=== PATIENT | female | born 1940 | race Caucasian/White ===

== ENCOUNTER 2017-02-04 14:50 | Emergency (ER) | payer MEDICARE, MEDICAID ==
[~2017-02-04] VITALS: Ht 160 cm; Wt 88.9 kg
[~2017-02-04 14:50] MED LIST: AMLO5TAB PO; ASPIRIN EC81 MG PO; BALANCED B PO; CENTRUM SILVER1 TAB PO; CLONAZEPAM 1MG T1 MG PO; ETOLDOLAC400 MG PO; GABAPENTIN300 MG PO; HYDROCHLOROTHIA25 M1 PO; HYDROXYZINE 25M25 MG PO; LESCOL XL80 MG PO; LESCOL40 MG PO; LISINOPRIL 20MG20 MG PO; LORTAB 5/500 501 TAB PO; MECLIZINE 25MG25 MG PO; MECLIZINE HYDRO25 MG PO; METOPROLOL50 MG PO; NYSTATIN TO15 GM/BOT TP; PLAVIX75 MG PO; PROTONIX 40MG T40 MG PO; RANITIDINE HCL150 MG PO; RANITIDINE300 MG PO; SERTRALINE 100100 MG PO; TRAZODONE 50MG50 MG PO; VERAPAMIL HCL120 MG PO; VERAPAMIL120 MG PO; VESICARE10 MG PO; VESICARE5 MG PO; ZETIA10 MG PO; ZOCOR40 MG PO; ZOLOFT100 M1 PO
[2017-02-04 15:07] LABS: LYMPH % 31.8 % (10-50.0)
--- NOTE | 2017-02-04 15:14 | Emergency Room Report ---
History of Present Illness Time Seen by [id number] Presenting Problem in Triage Pt arrived:Walked Presenting Problem:PT REPORTS PAIN ACROSS CHEST FOR APPROX 1 WEEK AND R JAW PAIN FOR 2 YEARS. PT REPORTS HAS KNOWN CAROTID ARTERY BLOCKAGE, REPORTS WAS SENT TO ER PER PCP. 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 N Clinical Suspician of Infection? N Mental Status: 1 - Regular (Normal Baseline) Sepsis Risk:Low Sepsis Risk Have you (or family members/close friends) recently traveled outside the [place]? N If Yes, where/when: Have you had exposure to infectious disease within the past month? N TB? Other? Specify: Source patient, RN notes reviewed, family, RN/MD Exam Limitations no limitations ALLERGIES Coded Allergies: No Known Allergies (10/06/15) Home Medications Reported Medications Amlodipine Besylate (Amlodipine) 5 MG PO DAILY Clopidogrel Bisulfate (Plavix) 75 MG PO DAILY VERAPAMIL HCL (Verapamil ER) 120 MG PO DAILY Meclizine Hcl (Meclizine Hydrochloride) 25 MG PO BIDP PRN DIZZINESS Ranitidine Hydrochloride (Ranitidine) 300 MG PO DAILY Simvastatin (Zocor) 40 MG PO QHS SERTRALINE HCL (Zoloft) 100 MG PO DAILY Solifenacin Succinate (Vesicare) 5 MG PO DAILY Pantoprazole Sodium (Protonix 40MG TAB) 40 MG PO DAILY LISINOPRIL (Lisinopril) 20 MG PO DAILY HYDROCHLOROTHIAZIDE (Hydrochlorothiazide) 25 MG PO TIDP PRN anxiety History Medical History General CAD? Yes Angina: No NM: No Hypertension? Yes Hyperlipidemia? Yes CHF? No DVT? No PE? No COPD? No Asthma? No Anemia? No GERD? No Gastric ulcers? No GI Bleed? No Hernia? Yes Thyroid Problems? No Hypothyroidism? No CVA? Yes Seizures? No Diabetes? No Renal Insuffiency? No End Stage Renal Disease? No UTI? Yes Stones? No GB Disease: No Hepatitis? No Sickle Cell Disease? No Arthritis? Yes Migraines? No Cataracts? No Glaucoma? No MRSA? No HIV? No TB? No Anxiety? Yes Depression? No Cancer? No More? No Immunization Hx DT/Tetanus 5-10 Years Ago Flu [id number] Flu Season Pneumonia Received In Past Surgical Hx Previous Surgery?Y Hysterect CARPAL TUNNEL RT X 2 RT BREAST BX BILAT KNEE REPLACEMENTS R ANKLE L ANKLE Family History Family Hx Diabetes Yes CAD Yes Hypertension Yes Hyperlipidemia Yes Cancer Yes TB No Social History Smoking Hx Smoker: Never Smoker Tobacco: No Alcohol Alcohol: No Review of Systems All Other Systems Reviewed and Negative Cardiovascular chest pain Physical Exam Vital Signs Vital Signs Date Time Temp Pulse Resp B/P Pulse O2 O2 Flow FiO2 Ox Delivery Rate 02/04 1842 97.7 71 18 150/74 93 02/04 1638 71 18 150/74 93 02/04 1450 97.7 59 18 144/80 93 General Appearance normal appearance, WD/WN, mild distress Eye Exam - bilateral eye normal exam, bilateral eye PERRL, bilateral eye EOMI Respiratory Status Yes: trachea midline, chest symmetrical, non tender chest. No: respiratory distress. Lung Sounds bilateral: normal breath sounds, lungs clear. Cardiovascular normal exam, regular rate/rhythm, no peripheral edema, no gallop, no JVD, no murmur, no rub, normal peripheral pulses Peripheral Pulses Pulses normal Yes Gastrointestinal normal bowel sounds, normal exam, non tender, soft, no organomegaly Extremities non-tender, normal range of motion, normal inspection Neurologic alert, self pay collector II-XII nml as tested, normal exam, oriented x 3 Mental status normal mood/affect Skin intact, normal color, warm/dry Medical Decision Making LABS/Meds/Orders Pt receiving controlled substance in ED? No Comment Upon re-evaluation patient appears medically stable, clinically improving. Advised patient to follow-up with automotive parts clerk, Dr. Gregory Raygoza, within the next 2-3 days. Results/Orders Laboratory Tests 02/04/17 1740: Creatine Kinase 36, CK-MB (CK-2) Rel Index 5.6 H, CK and CKMB Interp 2.0, Troponin I < 0.02 02/04/17 1458: B-Natriuretic Peptide 101 H 02/04/17 1458: Sodium 138, Potassium 4.0, Chloride 104, Carbon Dioxide 27, BUN 19 H, Creatinine 1.3 H, Estimated Creat Clear 52, Estimated GFR (MDRD) 40 L, Glucose 155 H, Calcium 8.8, Total Bilirubin 0.4, AST 17, ALT 17, Alkaline Phosphatase 88, Creatine Kinase 39, CK-MB (CK-2) Rel Index 5.9 H, CK and CKMB Interp 2.3, Troponin I < 0.02, Total Protein 7.2, Albumin 3.3 L, Globulin 3.9 H, Albumin/ Globulin Ratio 0.8 L, D-Dimer 459 *H, WBC 6.3, RBC 4.32, Hgb 12.4, Hct 35.7 L, MCV 82.6, RDW 13.4, Plt Count 238, MPV 7.0 L, Gran % 60.6, Gran # 3.8, Lymphocytes % 31.8, Monocytes % 4.9, Eosinophils % 2.4, Basophils % 0.3, Lymphocytes # 2.0, Monocytes # 0.3, Eosinophils # 0.2, Basophils # 0.0, PUBS MCHC 34.6, MCH 28.6 Orders Procedure Date/time Status CARDIAC ENZYMES 02/04 1725 Complete D-DIMER 02/04 1511 Complete BRAIN NATRIURETIC PEPTIDE 02/04 1511 Complete ELECTROCARDIOGRAM REQUEST 02/04 1452 Active IV SALINE LOCK 02/04 1452 Active INSURANCE DEFENSE PARALEGAL 02/04 1452 Active CBC WITH AUTO DIFF 02/04 1452 Complete CARDIAC ENZYMES 02/04 1452 Complete CHEM 12 PROFILE 02/04 1452 Complete 12 LEAD EKG-REHAN (INITIAL) 02/04 UNK Active CM/EKG CM/assistant professor of education Rhythm Normal Sinus Rhythm Rate 88 Ectopy No Comments No acute ischemic changes EKG rate, NSR, rhythm, no evid. of ischemic chgs, no ectopy, normal QRS, normal ID, no EKG for comparison, non-spec. ST/Twave chgs, ST elevation, ST depression, LBBB, RBBB, ectopy, abnormal Q waves XRAY/CT/US XRAY/CT/US XRAY chest XR interpretation by reviewed by me, discussed w/radiologist Xray Results no infiltrates, normal heart size, normal lung inflation shawn Departure Departure Time of Disposition 1826 Disposition DC Home or Self Care(routine) Clinical Impression Primary Impression: Chest pain Qualifiers: Chest pain type: unspecified Qualified Code: R07.9 - Chest pain, unspecified Condition STABLE Referrals Gregory Raygoza MD tomorrow at 10:30am Patient Instructions DI for Chest Pain Additional Instructions Please follow-up with Dr. Gregory Raygoza tomorrow morning at 10:30 AM, as already scheduled. Discharge Counseling Counseled pt/family regarding diagnosis, test results, medications/RX, home care, follow up needs Comment Please follow-up with Dr. Gregory Raygoza tomorrow morning at 10:30 AM, as already scheduled. ED Critical Care Critical Care No at [id number]
--- NOTE | 2017-02-04 15:14 | Emergency Room Report ---
History of Present Illness Time Seen by [id number] Presenting Problem in Triage Pt arrived:Walked Presenting Problem:PT REPORTS PAIN ACROSS CHEST FOR APPROX 1 WEEK AND R JAW PAIN FOR 2 YEARS. PT REPORTS HAS KNOWN CAROTID ARTERY BLOCKAGE, REPORTS WAS SENT TO ER PER PCP. 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 N Clinical Suspician of Infection? N Mental Status: 1 - Regular (Normal Baseline) Sepsis Risk:Low Sepsis Risk Have you (or family members/close friends) recently traveled outside the [place]? N If Yes, where/when: Have you had exposure to infectious disease within the past month? N TB? Other? Specify: Source patient, RN notes reviewed, family, RN/MD Exam Limitations no limitations ALLERGIES Coded Allergies: No Known Allergies (10/06/15) Home Medications Reported Medications Amlodipine Besylate (Amlodipine) 5 MG PO DAILY Clopidogrel Bisulfate (Plavix) 75 MG PO DAILY VERAPAMIL HCL (Verapamil ER) 120 MG PO DAILY Meclizine Hcl (Meclizine Hydrochloride) 25 MG PO BIDP PRN DIZZINESS Ranitidine Hydrochloride (Ranitidine) 300 MG PO DAILY Simvastatin (Zocor) 40 MG PO QHS SERTRALINE HCL (Zoloft) 100 MG PO DAILY Solifenacin Succinate (Vesicare) 5 MG PO DAILY Pantoprazole Sodium (Protonix 40MG TAB) 40 MG PO DAILY LISINOPRIL (Lisinopril) 20 MG PO DAILY HYDROCHLOROTHIAZIDE (Hydrochlorothiazide) 25 MG PO TIDP PRN anxiety History Medical History General CAD? Yes Angina: No CT: No Hypertension? Yes Hyperlipidemia? Yes CHF? No DVT? No PE? No COPD? No Asthma? No Anemia? No GERD? No Gastric ulcers? No GI Bleed? No Hernia? Yes Thyroid Problems? No Hypothyroidism? No CVA? Yes Seizures? No Diabetes? No Renal Insuffiency? No End Stage Renal Disease? No UTI? Yes Stones? No GB Disease: No Hepatitis? No Sickle Cell Disease? No Arthritis? Yes Migraines? No Cataracts? No Glaucoma? No MRSA? No HIV? No TB? No Anxiety? Yes Depression? No Cancer? No More? No Immunization Hx DT/Tetanus 5-10 Years Ago Flu [id number] Flu Season Pneumonia Received In Past Surgical Hx Previous Surgery?Y Hysterect CARPAL TUNNEL RT X 2 RT BREAST BX BILAT KNEE REPLACEMENTS R ANKLE L ANKLE Family History Family Hx Diabetes Yes CAD Yes Hypertension Yes Hyperlipidemia Yes Cancer Yes TB No Social History Smoking Hx Smoker: Never Smoker Tobacco: No Alcohol Alcohol: No Review of Systems All Other Systems Reviewed and Negative Cardiovascular chest pain Physical Exam Vital Signs Vital Signs Date Time Temp Pulse Resp B/P Pulse O2 O2 Flow FiO2 Ox Delivery Rate 02/04 1842 97.7 71 18 150/74 93 02/04 1638 71 18 150/74 93 02/04 1450 97.7 59 18 144/80 93 General Appearance normal appearance, WD/WN, mild distress Eye Exam - bilateral eye normal exam, bilateral eye PERRL, bilateral eye EOMI Respiratory Status Yes: trachea midline, chest symmetrical, non tender chest. No: respiratory distress. Lung Sounds bilateral: normal breath sounds, lungs clear. 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 No Comment Upon re-evaluation patient appears medically stable, clinically improving. Advised patient to follow-up with wool shearer, Dr. Gregory Raygoza, within the next 2-3 days. Results/Orders Laboratory Tests 02/04/17 1740: Creatine Kinase 36, CK-MB (CK-2) Rel Index 5.6 H, CK and CKMB Interp 2.0, Troponin I < 0.02 02/04/17 1458: B-Natriuretic Peptide 101 H 02/04/17 1458: Sodium 138, Potassium 4.0, Chloride 104, Carbon Dioxide 27, BUN 19 H, Creatinine 1.3 H, Estimated Creat Clear 52, Estimated GFR (MDRD) 40 L, Glucose 155 H, Calcium 8.8, Total Bilirubin 0.4, AST 17, ALT 17, Alkaline Phosphatase 88, Creatine Kinase 39, CK-MB (CK-2) Rel Index 5.9 H, CK and CKMB Interp 2.3, Troponin I < 0.02, Total Protein 7.2, Albumin 3.3 L, Globulin 3.9 H, Albumin/ Globulin Ratio 0.8 L, D-Dimer 459 *H, WBC 6.3, RBC 4.32, Hgb 12.4, Hct 35.7 L, MCV 82.6, RDW 13.4, Plt Count 238, MPV 7.0 L, Gran % 60.6, Gran # 3.8, Lymphocytes % 31.8, Monocytes % 4.9, Eosinophils % 2.4, Basophils % 0.3, Lymphocytes # 2.0, Monocytes # 0.3, Eosinophils # 0.2, Basophils # 0.0, PUBS MCHC 34.6, MCH 28.6 Orders Procedure Date/time Status CARDIAC ENZYMES 02/04 1725 Complete D-DIMER 02/04 1511 Complete BRAIN NATRIURETIC PEPTIDE 02/04 1511 Complete ELECTROCARDIOGRAM REQUEST 02/04 1452 Active IV SALINE LOCK 02/04 1452 Active CASH ACCOUNTING CLERK 02/04 1452 Active CBC WITH AUTO DIFF 02/04 1452 Complete CARDIAC ENZYMES 02/04 1452 Complete CHEM 12 PROFILE 02/04 1452 Complete 12 LEAD EKG-REHAN (INITIAL) 02/04 UNK Active CM/EKG CM/applications processor Rhythm Normal Sinus Rhythm Rate 88 Ectopy No Comments No acute ischemic changes EKG rate, NSR, rhythm, no evid. of ischemic chgs, no ectopy, normal QRS, normal CA, no EKG for comparison, non-spec. ST/Twave chgs, ST elevation, ST depression, LBBB, RBBB, ectopy, abnormal Q waves XRAY/CT/US XRAY/CT/US XRAY chest XR interpretation by reviewed by me, discussed w/radiologist Xray Results no infiltrates, normal heart size, normal lung inflation shawn Departure Departure Time of Disposition 1826 Disposition DC Home or Self Care(routine) Clinical Impression Primary Impression: Chest pain Qualifiers: Chest pain type: unspecified Qualified Code: R07.9 - Chest pain, unspecified Condition STABLE Referrals Gregory Raygoza MD tomorrow at 10:30am Patient Instructions DI for Chest Pain Additional Instructions Please follow-up with Dr. Gregory Raygoza tomorrow morning at 10:30 AM, as already scheduled. Discharge Counseling Counseled pt/family regarding diagnosis, test results, medications/RX, home care, follow up needs Comment Please follow-up with Dr. Gregory Raygoza tomorrow morning at 10:30 AM, as already scheduled. ED Critical Care Critical Care No at [id number]
[2017-02-04 15:16] LABS: HEMOGLOBIN 12.4 g/dL (12.2-16.2)
--- OUTSIDE RECORDS SUMMARY | 2017-02-04 15:20 | External Medical Summary Rpt ---
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 THROAT THRESHOLD SPECIAL EVAL SP RECOGNIJ APPL 67347 SHAMAR IBANEZ MODALITY 5 [facility] 1/> AREAS INC INC ULTRASOUN D EA 15 MIN APPL 16711 SHAMAR IBANEZ MODALITY 5 [facility] 1/> AREAS INC INC IONTOPHOR ESIS EA 15 MIN APPL 22501 SHAMAR IBANEZ MODALITY 5 [facility] 1/> AREAS INC INC IONTOPHOR ESIS EA 15 MIN APPL 51397 SHAMAR IBANEZ MODALITY 5 [facility] 1/> AREAS INC INC ULTRASOUN D EA 15 MIN APPL 13770 SHAMAR IBANEZ MODALITY 5 [facility] 1/> AREAS INC INC ULTRASOUN D EA 15 MIN APPL 34731 SHAMAR IBANEZ MODALITY 5 [facility] 1/> AREAS INC INC IONTOPHOR ESIS EA 15 MIN APPL 49481 SHAMAR IBANEZ MODALITY 5 [facility] 1/> AREAS INC INC IONTOPHOR ESIS EA 15 MIN APPL 41266 SHAMAR IBANEZ MODALITY 5 [facility] 1/> AREAS INC INC ULTRASOUN D EA 15 MIN MANUAL 72061 SHAMAR IBANEZ THERAPY 5 [facility] TQS 1/> INC INC REGIONS EACH 15 MINUTES APPL 95579 SHAMAR IBANEZ MODALITY 5 [facility] 1/> AREAS INC INC ULTRASOUN D EA 15 MIN APPL 12437 SHAMAR IBANEZ MODALITY 5 [facility] 1/> AREAS INC INC IONTOPHOR ESIS EA 15 MIN PHYSICAL 59770 SHAMAR IBANEZ THERAPY 5 [facility] EVALUATIO INC INC N DAY CARE S5100 SHAMAR IBANEZ SERVICES [address] [place] [address] ADULT; ELDER ELDER PER 15 CARE CARE MINUTES DAY CARE S5100 SHAMAR IBANEZ SERVICES [address] [place] [address] ADULT; ELDER ELDER PER 15 CARE CARE MINUTES DAY CARE S5100 SHAMAR IBANEZ [address] ADULT; ELDER ELDER PER 15 CARE CARE MINUTES NON-INVAS 33404 [place] L[place] DANIELLE 5 MEDICAL [place] PHYSIOLOG IMAGING IC STUDY ASS EXTREMITY 3 LEVLS DAY CARE S5100 SHAMAR IBANEZ [address] ADULT; ELDER ELDER PER 15 CARE CARE MINUTES DAY CARE S5100 SHAMAR IBANEZ [address] ADULT; ELDER ELDER PER 15 CARE CARE MINUTES DAY CARE S5100 SHAMAR IBANEZ [address] ADULT; ELDER ELDER PER 15 CARE CARE MINUTES MRI 73184 [place] ROBERT SPINAL 5 [facility] [place] CANAL IMAGING LUMBAR ASS W/O CONTRAST MATERIAL DAY CARE S5100 SHAMAR IBANEZ [address] ADULT; ELDER ELDER PER 15 CARE CARE MINUTES DAY CARE S5100 SHAMAR IBANEZ [address] ADULT; ELDER ELDER PER 15 [place] [address] SHAMAR IBANEZ INFUSION 5 [facility] THERAPY/P INC INC ROPHYLAXI S /DX 1ST TO 1 HR DAY CARE S5100 SHAMAR IBANEZ [address] ADULT; ELDER ELDER PER 15 CARE CARE MINUTES E-STIM G0283 SHAMAR IBANEZ 1/> AREAS 5 [facility] OTH THAN INC INC WND CARE PART TX PLAN APPL 33172 SHAMAR IBANEZ MODALITY 5 [facility] 1/> AREAS INC INC ULTRASOUN D EA 15 MIN APPL 51986 SHAMAR IBANEZ MODALITY 5 [facility] 1/> AREAS INC INC ULTRASOUN D EA 15 MIN E-STIM G0283 SHAMAR IBANEZ 1/> AREAS 5 [facility]OS[facility] OTH THAN INC INC WND CARE PART TX PLAN E-STIM G0283 SHAMAR IBANEZ 1/> AREAS 5 [facility]OS[facility] OTH THAN INC INC WND CARE PART TX PLAN APPL 71958 SHAMAR IBANEZ MODALITY 5 [facility] 1/> AREAS INC INC ULTRASOUN D EA 15 MIN APPL 67260 SHAMAR IBANEZ MODALITY 5 [facility] 1/> AREAS INC INC ULTRASOUN D EA 15 MIN RADEX 00420 [place] ROBERT FOOT 5 [facility] [place] COMPLETE IMAGING MINIMUM 3 ASS VIEWS E-STIM G0283 SHAMAR IBANEZ 1/> AREAS 5 [facility]OS[facility] OTH THAN INC INC WND CARE PART TX PLAN E-STIM G0283 SHAMAR IBANEZ 1/> AREAS 5 [facility]OS[facility] OTH THAN INC INC WND CARE PART TX PLAN APPL 19128 SHAMAR IBANEZ MODALITY 5 [facility] 1/> AREAS INC INC ULTRASOUN D EA 15 MIN APPL 42753 SHAMAR IBANEZ MODALITY 5 [facility] 1/> AREAS INC INC ULTRASOUN D EA 15 MIN E-STIM G0283 SHAMAR IBANEZ 1/> AREAS 5 [facility]OS[facility] OTH THAN INC INC WND CARE PART TX PLAN PHYSICAL 40181 SHAMAR IBANEZ THERAPY 5 [facility] EVALUATIO INC INC N HIGH K0004 J & L J & L STRENGTH 4 HOME [facility] MEDICAL MEDICAL HT EQUIPMENT EQUIPMENT [facility] Invoice2go PHYSICAL 09124 SHAMAR IBANEZ THERAPY 4 [facility] EVALUATIO INC INC N E-STIM G0283 SHAMAR IBANEZ 1/> AREAS 4 [facility] OTH THAN INC INC WND CARE PART TX PLAN APPL 40832 SHAMAR IBANEZ MODALITY 4 [facility] 1/> AREAS INC INC IONTOPHOR ESIS EA 15 MIN HIGH K0004 J & L J & L STRENGTH 4 [facility] EQUIPMENT EQUIPMENT [facility] R HIGH K0004 J & L J & L STRENGTH 4 [facility] EQUIPMENT EQUIPMENT WHEELCHAI R HIGH K0004 J & L J & L STRENGTH 4 [facility] EQUIPMENT EQUIPMENT WHEELCHAI R HIGH K0004 J & L J & L STRENGTH 4 [facility] EQUIPMENT EQUIPMENT WHEELCHAI R HIGH K0004 J & L J & L STRENGTH 4 [facility] EQUIPMENT EQUIPMENT WHEELCHAI R HIGH K0004 J & L J & L STRENGTH 4 [facility] EQUIPMENT EQUIPMENT WHEELCHAI R [facility] K0004 J & L J & L STRENGTH 4 [facility] EQUIPMENT EQUIPMENT WHEELCHAI R NONEMER A0120 BLUE BLUEGRASS TRNSPRT: 4 [facility] [employer] [facility]OTH SYS RADEX 61870 [facility] ANKLE 4 N N COMPLETE [facility] MINIMUM 3 HOSPITA HOSPITA VIEWS [facility] K0004 J & L J & L STRENGTH 4 HOME [facility] EQUIPMENT [place]QUIPMENT [place] FLX 435[address] GASTROENT CASE JUS W/RMVL 4 EROLOGY OF TUMOR AND POLYP HEPATOL LESION SNARE TQ NONEMER A0120 BLUE BLUE TRNSPRT: 4 [facility] [employer] [facility] ACTION ACTION AREA/OT SYS [facility] K0004 J & L J & L STRENGTH 4 HOME [facility] EQUIPMENT EQUIPMENT WHEELCHAI R RADEX 84729 SCALF GILBERT SCALF GILBERT ANKLE 4 COMPLETE MINIMUM 3 VIEWS RADEX 12729 [facility] ANKLE 4 N N COMPLETE [facility] COMMUNITY MINIMUM 3 HOSPITA HOSPITA VIEWS RADEX 70266 GILBERTO GILBERTO ANKLE 4 RHO RHO COMPLETE MINIMUM 3 VIEWS LCHAIR E0978 J & L J & L ACSS PSTN 3 HOME HOME MEDICAL MEDICAL BELT/SFTY EQUIPMENT EQUIPMENT BELT/PELV STRAP EA RADEX 67416 [facility] ANKLE 3 N N COMPLETE [facility] MINIMUM 3 HOSPITA HOSPITA VIEWS VISUAL 72277 VAL NEAL FIELD XM 3 N ALEXANDER N ALEXANDER UNI/BI W/INTERP EXTENDED EXAM DETERMINA 61553 VAL NEAL TION 3 N ALEXANDER N ALEXANDER REFRACTIV E STATE EGD 19135 BENÍTEZ- BENÍTEZ- TRANSORAL 3 JULIET JULIET BIOPSY EVELIN EVELIN SING[place] [address] LETICIA ALEIDA LETICIA ALEIDA SURG 3 PATHOLOGY GROSS&BISHOP ROSCOPIC EXAM E-STIM G0283 [facility] 1/> AREAS 3 N N OTH THAN [facility] WND CARE HOSPITA HOSPITA PART TX PLAN THERAPEUT 14122 [facility] IC PX 1/> 3 N N [facility] EACH 15 HOSPITA HOSPITA MIN EXERCISES INJECTION J1040 [place] 3 PRASHANT PRASHANT METHYLPRE DNISOLONE ACETATE 80 MG THERAPEUT 59021 [facility] IC PX 1/> 3 N N [facility] EACH 15 HOSPITA HOSPITA MIN EXERCISES E-STIM G0283 [facility] 1/ AREAS 3 N N OTH THAN [facility] WND CARE HOSPITA HOSPITA PART TX PLAN INJ J2930 [employer], [facility], METHYLPRD 3 PARTY PLAN 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 PARTY PLAN 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 NISOLONE JAMEL JAMEL SODIUM CO HOS CO HOS SUCCNAT TO 125 MG INJECTION J1200 [employer], [employer], 3 PARTY PLAN 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 PARTY PLAN 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 DIPHENHYD JAMEL JAMEL RAMINE CO HOS CO HOS HCL UP TO 50 MG THERAPEUT 63539 [facility] IC PX 1/> 3 N N [facility] EACH 15 HOSPITA HOSPITA MIN EXERCISES THERAPEUT 89215 [facility] IC PX 1/> 3 N N [facility] EACH 15 HOSPITA HOSPITA MIN EXERCISES E-STIM G0283 [facility] 1/> AREAS 3 N N OTH THAN [facility] WND CARE HOSPITA HOSPITA PART TX PLAN PHYSICAL 21966 [facility] THERAPY 3 N N EVALUATIO [facility] N HOSPITA HOSPITA MRA NECK 43072 [facility] W/O 2 N N CONTRST [facility] MATERIAL HOSPITA HOSPITA MRI BRAIN 97557 [facility] [place] MAT BRAIN 2 RADIOLOGY STEM W/O CONTRAST MATERIAL DUPLEX 73091 [facility] SCAN 2 N N EXTRACRAN [facility] IAL ART HOSPITA HOSPITA COMPL BI STUDY RADEX 58554 MAKSIM SCHAEFFER SHOULDER 2 KARIN KARIN COMPLETE MINIMUM 2 VIEWS NONEMERG A0120 BLUE BLUE TRNSPRT: 2 [facility] ACTION ACTION AREA/OTH SYS RADEX 62985 MAKSIM SCHAEFFER SHOULDER 2 KARIN KARIN COMPLETE MINIMUM 2 VIEWS RADEX 77485 MAKSIM SCHAEFFER SHOULDER 2 KARIN KARIN COMPLETE MINIMUM 2 VIEWS RADEX 06790 MAKSIM SCHAEFFER SHOULDER 2 KARIN KARIN COMPLETE MINIMUM 2 VIEWS RADEX 32943 MAKSIM SCHAEFFER ELBOW 2 2 KARIN KARIN VIEWS RADEX 28253 MAKSIM SCHAEFFER HAND 2 KARIN KARIN MINIMUM 3 VIEWS NONEMERG A0120 BLUE BLUE TRNSPRT: 2 [facility] ACTION ACTION AREA/OTH SYS RADEX 59345 [facility] [place] MAT SHOULDER 2 RADIOLOGY COMPLETE MINIMUM 2 VIEWS RADEX 23222 [facility] [place] MAT CLAVICLE 2 RADIOLOGY COMPLETE NONCOVERE A9270 [facility] D ITEM OR 2 N N SERVICE [facility] HOSPITA HOSPITA RADEX 22241 [facility] [place] MAT HUMERUS 2 RADIOLOGY MINIMUM 2 VIEWS ECG 20020 ALICIA VARGAS ROUTINE 1 EMERGENCY EMERGENCY ECG SERVICES SERVICES W/LEAST 12 LDS I&[place] [address] [facility] HEAD/BRAI 1 MEDICAL MEDICAL N W/O IMAGING IMAGING CONTRAST ASS ASS MATERIAL CRITICAL 57055 ALICIA MOORE BAB CARE 1 EMERGENCY ILL/INJUR SERVICES ED PATIENT INIT 30-74 MIN 3D 24524 [facility] RENDERING 1 MEDICAL MEDICAL W/INTERP IMAGING IMAGING & ASS ASS POSTPROCE SS SUPERVISI ON BLOOD 47627 COMBINED COMBINED COUNT 1 PHYSICIAN PHYSICIAN COMPLETE S LA S LA AUTO&AUTO DIFRNTL WBC COLLECTIO 04261 COMBINED COMBINED N VENOUS 1 PHYSICIAN PHYSICIAN BLOOD S LA S LA VENIPUNCT URE COMPREHEN 81030 COMBINED COMBINED SIVE 1 PHYSICIAN PHYSICIAN METABOLIC S LA S LA PANEL HEMOGLOBI 93627 COMBINED COMBINED N 1 PHYSICIAN PHYSICIAN GLYCOSYLA S LA S LA CAMILA A1C LIPID 99536 COMBINED COMBINED PANEL 1 [place] [address] SHAMAR IBANEZ HEAD/BRAI 1 [facility] N W/O INC INC CONTRAST MATERIAL 3D 20834 SHAMAR IBANEZ RENDERING 1 [facility] INC INC W/INTERP& POSTPROC DIFF WORK STATION 3D 68083 [facility] RENDERING 1 [facility] [place] W/INTERP IMAGING & ASS POSTPROCE SS SUPERVISI ON COLLECTIO 40029 SHAMAR IBANEZ N VENOUS 1 [facility] BLOOD INC INC VENIPUNCT URE BLOOD 52689 SHAMAR IBANEZ COUNT 1 [facility] COMPLETE INC INC AUTO&AUTO DIFRNTL WBC SUSCEPTIB 37257 SHAMAR IBANEZ LTY STDY 1 [facility] ANTIMICRB INC INC IAL MICRO/AGA R DILUTJ CULTURE 33942 SHAMAR IBANEZ BACTERIAL 1 [facility] INC INC QUANTTATI VE COLONY COUNT URINE CULTURE 65668 SHAMAR IBANEZ BCT 1 [facility] ISOL&PRSM INC INC PTV ID ISOLATE EA URINE URNLS DIP 32620 SHAMAR IBANEZ 1 [facility] STICK/TAB INC INC LET REAGENT AUTO MICROSCOP Y BASIC 23030 SHAMAR IBANEZ METABOLIC 1 [facility] PANEL INC INC CALCIUM TOTAL LEVEL III 29068 PATHOLOGY PATHOLOGY SURG 1 & & PATHOLOGY CYTOLOGY CYTOLOGY LAB LAB GROSS&BISHOP ROSCOPIC EXAM TX SPEECH 48454 [facility] 1 N N VOICE COMMUNITY COMMUNITY COMMJ HOSPITA HOSPITA &/TECHNOLOGY APPLICATIONS TEACHER Y PROC IND [place] SPEECH 89294 [facility] LANG 1 N N VOICE COMMUNITY COMMUNITY COMMJ HOSPITA HOSPITA &/TECHNOLOGY APPLICATIONS TEACHER Y PROC IND TX SPEECH 72793 [facility] LANG 1 N N VOICE COMMUNITY COMMUNITY COMMJ HOSPITA HOSPITA &/TECHNOLOGY APPLICATIONS TEACHER Y PROC IND TX SPEECH 37278 [facility] LANG 1 N N VOICE COMMUNITY COMMUNITY COMMJ HOSPITA HOSPITA &/TECHNOLOGY APPLICATIONS TEACHER Y PROC IND TX SPEECH 05906 [facility] LANG 1 N N VOICE COMMUNITY COMMUNITY COMMJ HOSPITA HOSPITA &/TECHNOLOGY APPLICATIONS TEACHER Y PROC IND TX SPEECH 02239 [facility] LANG 1 N N VOICE COMMUNITY COMMUNITY COMMJ HOSPITA HOSPITA &/TECHNOLOGY APPLICATIONS TEACHER Y PROC IND [place] SPEECH 61042 [facility] LANG 1 N N VOICE COMMUNITY [facility] COMMJ HOSPITA HOSPITA &/TECHNOLOGY APPLICATIONS TEACHER Y PROC IND EVAL 64293 [facility] SPEECH 1 N N LANG [facility] VOICE HOSPITA HOSPITA COMMUNJ &/TECHNOLOGY APPLICATIONS TEACHER Y PROC [facility]OSP[facility] [address]99 [place] [facility]GE [facility] [place] DAY SERV MANAGEMEN FOUNDATIO T 30 MIN/< SBSQ 30865 [facility] 1 MEDICAL [place] CARE/DAY SERV 25 FOUNDATIO MINUTES SBSQ 81943 [facility] 1 MEDICAL [place] CARE/DAY SERV 25 FOUNDATIO MINUTES MRA NECK 69521 [place] [facility] W/O 1 MEDICAL EDW CONTRST SERV MATERIAL FOUNDATIO MRI BRAIN 01043 [place] [facility] BRAIN 1 MEDICAL EDW STEM W/O SERV CONTRAST FOUNDATIO MATERIAL MRA HEAD 93172 [place] [facility] W/O 1 MEDICAL EDW CONTRST SERV MATERIAL FOUNDATIO RADIOLOGI 54228 [place] NICKEL[place] C 1 MEDICAL CJ EXAMINATI SERV ON CHEST FOUNDATIO SING[place] FRONTAL RADEX 18841 [place] [facility] ORBITS 1 MEDICAL EDW COMPLETE SERV MINIMUM 4 FOUNDATIO VIEWS ECHO 20928 [place] EVA TTHRC R-T 1 MEDICAL 2D SERV W/WOM-MOD FOUNDATIO E COMPL SPEC&COLR D RADEX 03-04-201 10172 [place] ABDOMEN 1 1 MEDICAL VENICE SERV ANTEROPOS FOUNDATIO TERIOR VIEW INITIAL 00591 [place] [facility] 1 MEDICAL [place] CARE/DAY SERV 50 FOUNDATIO MINUTES 3D 82577 SHAMAR IBANEZ RENDERING 1 [facility] W/INTERP INC INC & [place] [address] SHAMAR IBANEZ INFUSION 1 [facility] THERAPY/P INC INC ROPHYLAXI S /DX 1ST TO 1 HR BLOOD 99213 SHAMAR IBANEZ COUNT 1 [facility] COMPLETE INC INC AUTO&[place] [address] SHAMAR IBANEZ TROPONIN 1 [facility] QUANTITAT INC INC DANIELLE GROUND A0425 [facility] AMBULANCE PER SERVICE SERVICE STATUTE MILE COMPREHEN 85129 SHAMAR IBANEZ SIVE 1 [facility] METABOLIC INC INC PANEL URNLS DIP 46018 SHAMAR IBANEZ 1 [facility] STICK/TAB INC INC LET REAGENT AUTO MICROSCOP Y AMB A0427 [facility] SERVICE 1 AMBULANCE AMBULANCE ALS SERVICE SERVICE [place]ERGENCY [place] [address] SHAMAR IBANEZ HEAD/BRAI 1 [facility] N W/O INC INC CONTRAST MATERIAL RADIOLOGI 44424 SHAMAR IBANEZ C 1 [facility] EXAMINATI INC INC ON CHEST SING[place]IEW FRONTAL CRITICAL 25700 ALICIA GROSS CARE 1 EMERGENCY III ALEXANDER ILL/INJUR SERVICES ED PATIENT INIT 30-74 MIN ECG 63762 SHAMAR IBANEZ ROUTINE 1 [facility] ECG INC INC W/LEAST 12 LDS TRCG ONLY W/O I&R CREATINE 95498 SHAMAR IBANEZ KINASE 1 [facility] TOTAL INC INC CREATINE 92371 SHAMAR IBANEZ KINASE MB 1 [facility] FRACTION INC INC ONLY ECG 18159 ALICIA GROSS ROUTINE 1 EMERGENCY III ALEXANDER ECG SERVICES W/LEAST 12 LDS I&R ONLY MOTION 63206 SHAMAR IBANEZ FLUOR 0 [facility] EVAL INC INC SWLNG FUNCJ C/V REC US SOFT 19145 SHAMAR IBANEZ TISSUE 0 [facility] HEAD & INC INC NECK REAL TIME IMGE DOCM SWALLOWIN 64174 SHAMAR Crespo FUNCJ 0 [facility] W/CINERAD INC INC IOGRAPY/V IDRADIOG NONEMERG A0120 LKLP LKLP TRNSPRT: 0 COMMUNITY COMMUNITY MINI-BUS ACTION N MTN AREA/OTH SYS COMPUTER- 98933 SHAMAR IBANEZ AIDED 0 [facility] DETECTION INC INC SCREENING MAMMOGRAP HY DXA BONE 06281 SHAMAR IBANEZ DENSITY 0 [facility] STUDY 1/> INC INC SITES AXIAL SKEL SCREENING G0202 SHAMAR IBANEZ 0 [facility] MAMMOGRAP INC INC HY ANGELICA INCL CAD WHEN PERFORMD COLLECTIO 00346 SHAMAR IBANEZ N VENOUS 0 [facility] BLOOD INC INC VENIPUNCT URE CULTURE 79217 COMBINED COMBINED BACTERIAL 0 PHYSICIAN PHYSICIAN S LA S LA QUANTTATI VE COLONY COUNT URINE COMPREHEN 92620 SHAMAR IBANEZ SIVE 0 [facility] METABOLIC INC INC PANEL HEMOGLOBI 38456 SHAMAR IBANEZ N 0 [facility] GLYCOSYLA INC INC CAMILA A1C LIPID 51175 SHAMAR IBANEZ PANEL 0 [facility] INC INC LANCETS A4259 DIABETES DIABETES PER BOX 0 CARE CLUB CARE CLUB OF [facility] BLD GLU A4253 DIABETES DIABETES TEST/REAG 0 CARE CLUB CARE CLUB T [facility] HOME BLD GLU MON-50 NORMAL A4256 DIABETES DIABETES LOW AND 0 CARE CLUB CARE CLUB HIGH [facility] CALIBRATO R SOLUTION/ [facility] A4258 DIABETES DIABETES WERED 0 CARE CLUB CARE CLUB DEVICE [facility] FOR LANCET EACH CYANOCOBA 64111 SHAMAR IBANEZ RADHA 0 [facility] VITAMIN INC INC B-12 LIPID 59387 SHAMAR IBANEZ PANEL 0 [facility] INC INC HEMOGLOBI 47784 SHAMAR IBANEZ N 0 [facility] GLYCOSYLA INC INC CAMILA A1C COMPREHEN 82005 SHAMAR IBANEZ SIVE 0 [facility] METABOLIC INC INC PANEL COLLECTIO 22117 SHAMAR IBANEZ N VENOUS 0 [facility] BLOOD INC INC VENIPUNCT URE SYPHILIS 27650 SHAMAR IBANEZ TEST 0 [facility] NON-TREPO INC INC NEMAL ANTIBODY QUAL BLOOD 75328 SHAMAR IBANEZ COUNT 0 [facility] COMPLETE INC INC AUTO&AUTO DIFRNTL WBC RADEX 33457 [facility] ANKLE 0 Y Y [facility] MINIMUM 3 VIEWS URNLS DIP 08214 COMBINED COMBINED 0 PHYSICIAN PHYSICIAN STICK/TAB S LAB S LAB LET REAGENT AUTO MICROSCOP Y BLD GLU A4253 AM MED AM MED TEST/REAG 0 DIRECT DIRECT T STRIPS [facility] BLD PHARMACY PHARMACY GLU MON-50 NORMAL A4256 AM MED AM MED LOW AND 0 DIRECT DIRECT HIGH [facility] CALIBRATO PHARMACY PHARMACY R SOLUTION/ CHIPS LANCETS A4259 AM MED AM MED PER BOX 0 DIRECT DIRECT OF 100 [facility] PHARMACY PHARMACY COMMODE E0163 REGINALDO HAIR CHAIR 0 HOME MED HOME MED MOBILE OR EQUIP. EQUIP. [facility] STATIONAR Y W/FIXED ARMS CAST Q4037 MADDY LIND JR, SUPPLIES 0 MEDICAL D D SHORT LEG SERV CAST FOUNDATIO ADULT PLASTER APPLICATI 75849 MADDY LIND JR, ON SHORT 0 MEDICAL D D LEG CAST SERV BELOW FOUNDATIO KNEE-TOE RADEX 05862 [facility] ANKLE 0 Y Y [facility] MINIMUM 3 VIEWS DXA BONE 92761 NEURODIAG LUTZ, DENSITY 0 NOSTICPSC YFN B STUDY 1/> SITES AXIAL SKEL PHYS CERT [id number] MADDY COBOS, MCR-COVR 0 MEDICAL OCTAVIANO S [facility]LL [facility] SERV SRVC PER FOUNDATIO CERT PRD RADEX 58606 [facility] ELBOW 0 Y Y COMPLETE [facility] MINIMUM 3 VIEWS [facility] 89249 MADDY COBOS, DISCHARGE 0 MEDICAL OCTAVIANO S DAY SERV MANAGEMEN FOUNDATIO T 30 MIN/< SBSQ [id number] [facility] 0 MEDICAL OCTAVIANO S CARE/DAY SERV 25 FOUNDATIO MINUTES SBSQ [id number] [facility] 0 MEDICAL OCTAVIANO S CARE/DAY SERV 25 FOUNDATIO MINUTES SBSQ 46525 [facility] 0 MEDICAL OCTAVIANO S CARE/DAY SERV 25 FOUNDATIO MINUTES SBSQ 73157 [facility] 0 MEDICAL [place] J CARE/DAY SERV 25 FOUNDATIO MINUTES SBSQ [id number] [facility] 0 MEDICAL [place]E J CARE/DAY SERV 25 FOUNDATIO MINUTES SBSQ 01250 [facility] 0 MEDICAL VALE J CARE/DAY SERV 25 FOUNDATIO MINUTES SBSQ 22504 [facility] 0 MEDICAL OCTAVIANO S CARE/DAY SERV 25 FOUNDATIO MINUTES HOSPITAL [address] [facility], [facility] 0 Y OF [place] E MANAGEMEN INTERNAL T 30 MEDICINE MIN/< INITIAL 17957 [place] [address] MEDICAL OCTAVIANO S CARE/DAY SERV 70 FOUNDATIO MINUTES SBSQ 38321 [facility] 0 Y OF [facility]/DAY [place] E 25 INTERNAL MINUTES MEDICINE SBSQ 05255 [facility] 0 Y OF [facility]/DAY [place] 25 INTERNAL MINUTES MEDICINE SBSQ 88756 [facility] 0 Y OF [place] CARE/DAY [place] 25 INTERNAL MINUTES MEDICINE SBSQ 55423 [facility] 0 Y OF [place] M CARE/DAY [place] 25 INTERNAL MINUTES MEDICINE SBSQ 94933 [facility] 0 Y OF [place] M CARE/DAY [place] 25 INTERNAL MINUTES MEDICINE SBSQ 12349 [facility] 0 Y OF [place] CARE/DAY [place] 25 INTERNAL MINUTES MEDICINE RADEX 05924 [place], ANKLE 0 MEDICAL MAEGAN N COMPLETE SERV MINIMUM 3 FOUNDATIO VIEWS INITIAL 32468 [facility] 0 Y OF CHERYLE M CARE/DAY [place] 50 INTERNAL MINUTES MEDICINE RADEX 64249 [place], EL[place]OW 0 MEDICAL MAEGAN N COMPLETE SERV MINIMUM 3 FOUNDATIO VIEWS RADEX 64574 [place], ANKLE 0 MEDICAL MAEGAN N COMPLETE SERV MINIMUM 3 FOUNDATIO VIEWS RADEX 10587 [place], FOOT 0 MEDICAL MAEGAN N COMPLETE SERV MINIMUM 3 FOUNDATIO VIEWS ROTARY A0436 PETROLEUM PETROLEUM WING AIR 0 MILEAGE HELICOPTE HELICOPTE PER RS INC RS INC STATUTE MILE MODERATE 67560 [place] JENNIFER, SEDATJ 0 MEDICAL BARBI C DIFF SERV PHYS/QHP FOUNDATIO 5/>YRS INIT 30 MIN AMB [id number] PETROLEUM PETROLEUM SERVICE 0 CONVNTION HELICOPTE HELICOPTE AIR SRVC RS INC RS INC TRANSPORT [address] RADIOLOGI 77827 [place], C 0 MEDICAL MAEGAN N EXAMINATI SERV ON PELVIS FOUNDATIO 1/2 VIEWS ECG 39454 [place] Agu[place] CASTELLANOS S ROUTINE 0 MEDICAL ECG SERV W/LEAST FOUNDATIO 12 LDS I&R ONLY RADIOLOGI 01782 [place], C 0 MEDICAL MAEGAN N EXAMINATI SERV ON TIBIA FOUNDATIO & FIBULA 2 VIEWS ECHO 84740 SHAMAR IBANEZ TTHRC R-T 9 [facility] 2D INC INC W/WOM-MOD E COMPL SPEC&COLR D NON-INVAS 25723 SHAMAR IBANEZ DANIELLE 9 [facility] PHYSIOLOG INC INC IC STUDY EXTREMITY 3 LEVLS ECG 56727 SHAMAR LOVEMIE ROUTINE 9 [facility] W/LEAST PROF SERV 12 LDS I&R ONLY ECG [id number] SHAMAR IBANEZ ROUTINE 9 [facility] ECG INC INC W/LEAST 12 LDS TRCG ONLY W/O I&R SEAT E0156 REGINALDO HAIR ATTACHMEN 9 HOME MED HOME MED T WALKER EQUIP. EQUIP. LLC LLC WALKER E0143 REGINALDO HAIR FOLDING 9 HOME MED HOME MED WHEELED EQUIP. EQUIP. ADJUSTABL [facility] E/FIXED HEIGHT LANCETS A4259 AM MED AM MED PER BOX 9 DIRECT DIRECT OF 100 LLC LLC PHARMACY PHARMACY NORMAL A4256 AM MED AM MED LOW AND 9 DIRECT DIRECT HIGH LLC LLC [facility] PHARMACY R SOLUTION/ CHIPS BLD GLU A4253 AM MED AM MED TEST/REAG 9 DIRECT DIRECT T STRIPS LLC LLC HOME BLD PHARMACY PHARMACY GLU APPLICATI 26877 [place] ON SHORT 9 [facility] LEG CENTER CENTER SPLINT CALF FOOT RADEX 25095 [place] ANKLE [address] [place] [address] COMPLETE CENTER CENTER MINIMUM 3 VIEWS BLD GLU A4253 AM MED AM MED TEST/REAG 9 DIRECT DIRECT T [facility] LLC LLC HOME BLD PHARMACY PHARMACY GLU FRI- NORMAL A4256 AM MED AM MED LOW AND 9 DIRECT DIRECT HIGH LLC LLC [facility] PHARMACY R SOLUTION/ CHIPS LANCETS A4259 AM MED AM MED PER BOX 9 DIRECT DIRECT OF 100 LLC LLC PHARMACY PHARMACY SCREENING 06418 JAMEL MCCULLOUGH 9 CO [facility] HY BILATERAL BLD GLU A4253 AM MED AM MED TEST/REAG 9 DIRECT DIRECT T [facility] LLC HOME BLD PHARMACY PHARMACY GLU LANCETS A4259 AM MED AM MED PER BOX 9 DIRECT DIRECT OF 100 LLC [facility] PHARMACY PHARMACY NORMAL A4256 AM MED AM MED LOW AND 9 DIRECT DIRECT HIGH LLC [facility] PHARMACY PHARMACY R SOLUTION/ CHIPS MEDICAL 18557 SHAMAR IBANEZ NUTRITION 9 [facility] INC INC ASSMT&IVN TJ INDIV EACH 15 SD BLOOD 84735 JAMEL MCDANIEL 9 CO IA SMEAR [facility] MCRSCP W/MNL DIFRNTL WBC COUNT COMPREHEN 37604 JAMEL MCCULLOUGH SIVE 9 CO IA METABOLIC [facility] [place] [address] JAMEL MCCULLOUGH THYROID 9 CO [facility] TSH BLOOD 74231 JAMEL MCCULLOUGH COUNT 9 CO [facility] AUTO&AUTO DIFRNTL WBC COLLECTIO 13535 JAMEL MCCULLOUGH N VENOUS 9 CO IA BLOOD [facility] [place] [address] JAMEL MCCULLOUGH FOLIC 9 CO IA ACID [facility] SERUM CYANOCOBA 45294 JAMEL MCCULLOUGH RADHA 9 CO IA VITAMIN [facility] B-12 HEMOGLOBI 87678 JAMEL MCCULLOUGH N [address] [facility] GLYCOSYLA [facility] CAMILA A1C LIPID 22468 JAMEL MCCULLOUGH PANEL 9 [facility] LANCETS A4259 AM MED AM MED PER BOX 9 DIRECT DIRECT OF 100 [facility] PHARMACY PHARMACY BLD GLU A4253 AM MED AM MED TEST/REAG 9 DIRECT DIRECT T STRIPS [facility] HOME D PHARMACY PHARMACY GLU FRI- URNLS DIP 87190 [place] KEYANNA, [address] [facility] A STICK/TAB INTERNAL LET RGNT MED NON-AUTO W/O MICRSCP BLD GLU A4253 AM MED AM MED TEST/REAG 8 DIRECT DIRECT T STRIPS [facility] HOME BLD PHARMACY PHARMACY GLU LANCETS A4259 AM MED AM MED PER BOX 8 DIRECT DIRECT OF 100 [facility] PHARMACY PHARMACY OBSERVATI 15279 [place] KEY[place], ON CARE 8 MANLY ANA A DISCHARGE INTERNAL MED MANAGEMEN T AMB A0427 [facility] SERVICE 8 [facility] TRANSPORT LEVEL 1 GROUND A0425 [facility] MILEAGE 8 [facility] STAT[facility] MILE INITIAL 46890 [place] ELSA OBSERVATI 8 [facility], ON INTERNAL NATHAN F CARE/DAY MED 30 MINUTES LANCETS A4259 AM MED AM MED PER BOX 8 DIRECT DIRECT OF 100 [facility] PHARMACY PHARMACY BLD GLU A4253 AM MED AM MED TEST/REAG 8 DIRECT DIRECT T STRIPS [facility] HOME D PHARMACY PHARMACY GLU FRI-50 POLYSOM 94922 SHAMAR IBANEZ 6/>YRS 8 [facility] SLEEP 4/> INC INC ADDL BUCKY ATTND SLING 70112 [facility], OPERATION 8 [facility] STRESS CLINIC OF INCONTINE NCE [place] [facility] THER 31830 SHAMAR IBANEZ PROPH/DX 8 [facility] NJX EA INC INC SEQL IV PUSH SBST/DRUG REPAIR C1771 SHAMAR IBANEZ DEVICE 8 [facility] URINARY INC INC INCONTINE NCE W/SLING GRAFT CULTURE 86155 SHAMAR FRENCHON BACTERIAL 8 [facility] INC INC QUANTTATI VE COLONY COUNT URINE IV NFUS 70955 SHAMAR IBANEZ THER 8 [facility] PROPH/[place] [address] SHAMAR SHAMAR THER 8 [facility] PROPH/DX INC INC 1ST >1 HR ANES 94765 COMMUNITY MUNOZ, EXTRAPERI 8 ANESTH NATHAN HATFIELD OF THE LWR ABD FRANCISCO W/URINARY TRACT NOS URNLS DIP 42535 SHAMAR IBANEZ 8 [facility] STICK/TAB INC INC LET REAGENT AUTO MICROSCOP Y GLUC BLD 59582 SHAMAR IBANEZ GLUC MNTR 8 [facility] DEV INC INC CLEARED FDA SPEC HOME USE ECG 18394 SHAM[address]OUTINE [address] [facility] NATHAN Castillo W/LEAST PROF SERV 12 LDS I&R ONLY ECG 71383 SHAMAR IBANEZ ROUTINE 8 [facility] ECG INC INC W/LEAST 12 LDS TRCG ONLY W/O I&R BLOOD 21895 SHAMAR SHAMAR COUNT 8 [facility] COMPLETE INC INC AUTO&AUTO DIFRNTL WBC COLLECTIO 45613 SHAMAR IBANEZ N VENOUS 8 [facility] BLOOD INC INC VENIPUNCT URE BASIC 15768 SHAMAR IBANEZ METABOLIC 8 [facility] PANEL INC INC CALCIUM TOTAL COMPLEX 12532 [facility], UROFLOMET 8 [facility] RY [facility] [place] [facility] BLADDER 76820 [facility], PRESSURE 8 [facility] MEASUREME CLINIC OF NT DURING FILLING [place] [facility] URTL 54083 [facility], PRESS 8 [facility] PROFILE [facility] VOIDING 43934 [facility], PRESS 8 [facility] STDS BLDR CLINIC OF VOIDING PRESS ANY [facility] T[facility] VOID 32049 [facility], PRESSURE 8 [facility] STUDIES [facility] OF [place] [facility] BLD GLU A4253 AM MED AM MED TEST/REAG 8 DIRECT DIRECT T STRIPS LLC LLC HOME BLD PHARMACY PHARMACY GLU MON-50 LANCETS A4259 AM MED AM MED PER BOX 8 DIRECT DIRECT OF 100 LLC LLC PHARMACY PHARMACY PHYS CERT G0180 [place] MCR-COVR 8 [facility] INTERNAL NATHAN F SRVC PER MED CERT PRD BLD GLU A4253 AM MED AM MED TEST/REAG 8 DIRECT DIRECT T STRIPS LLC LLC HOME BLD PHARMACY PHARMACY GLU FRI-50 LANCETS A4259 AM MED AM MED PER BOX 8 DIRECT DIRECT OF 100 LLC LLC PHARMACY PHARMACY Encounters Encounter Start End Date Code Location Performer Type Date [facility] SHAMAR - 7 7 [facility] OUTPATIEN INC T OFFICE 25760 [facility] DAREN OUTPATIEN 7 7 PHYSICIAN T VISIT S GROUP 25 MINUTES [facility]OSPITAL SH[facility]AR - 7 7 [facility] OUTPATIEN INC [facility] SHAMAR - 7 7 [facility] OUTPATIEN INC T OFFICE 67583 [facility] DAREN OUTPATIEN 7 7 PHYSICIAN T VISIT S GROUP 40 MINUTES HOSPITAL SHAMAR - 7 7 [facility] OUTPATIEN INC [facility] SHAMAR - 7 7 [facility] OUTPATIEN INC [facility] SHAMAR - 7 7 [facility] OUTPATIEN INC T OFFICE 09348 [facility] DAREN OUTPATIEN 7 7 PHYSICIAN T VISIT S GROUP 40 MINUTES OFFICE 64015 [facility] TRUJILLO OUTPATIEN 7 7 PHYSICIAN T VISIT S GROUP 15 MINUTES HOSPITAL SHAMAR - 7 7 [facility] OUTPATIEN INC T OFFICE 95304 [facility] TRUJILLO OUTPATIEN 7 7 PHYSICIAN T NEW 20 S GROUP MINUTES HOSPITAL SHAMAR - 6 6 [facility] OUTPATIEN [facility] H[facility]PITAL SHAMAR - 6 6 [facility] OUTPATIEN [facility] OFFICE 24769 [place] TIFFANY PHI OUTPATIEN 5 5 MEDICAL T NEW 30 SERV MINUTES FOUNDATIO N OFFICE 94659 EAR, NOSE SHASHY OUTPATIEN 5 5 AND SANDOVAL T VISIT THROAT 25 SPECIAL [facility] SHAMAR - 5 5 [facility] OUTPATIEN [facility] SHAMAR [facility] 5 5 [facility]PATIEN [facility] SHAMAR - 5 5 [facility]EN [facility] SHAMAR - 5 5 [facility] OUTPATIEN [facility] SHAMAR [facility] 5 5 [facility] OUTPATIEN [facility]PITAL SHAMAR - 5 5 [facility] OUTPATIEN [facility] SHAMAR - 5 5 [facility] OUTPATIEN [facility] SHAMAR [facility] 5 5 [facility] OUTPATIEN [facility] SHAMAR - 4 4 [facility] OUTPATIEN [facility] HOME VST 45857 HENRI SADLER EST PT 4 4 [place] [facility] SIGNIF NEW PROB 60 MINS HOSPITAL [facility] - 4 4 N OUTPATIEN [facility] 4 4 N OUTPATIEN [facility] 4 4 N OUTPATIEN [facility] 4 4 N OUTPATIEN [facility] EMERGENCY 74014 [facility] 3 3 N [facility] MODERATE [facility]VERITY HOSPITAL [facility] - 3 3 N OUTPATIEN [facility] - 3 3 N OUTPATIEN [facility] T HOSPITA CRIT[facility], ACCESS 3 3 PARTY PLAN 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 EMERGENCY 87118 [facility], 3 3 PARTY PLAN 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 DEPARTMEN [facility] T VISIT [facility] MODERATE [facility]VERITY [facility]OSPITAL [facility] - 3 3 N OUTPATIEN [facility] - 2 2 N OUTPATIEN [facility] OFFICE 25699 [facility] 2 [facility] 30 MINUTES [facility] HOSP[facility] OFF[facility] 24470 IVANSDBelem MOIRASDBelem [facility] 2 2 JR [facility] T VISIT 15 MINUTES EMERGENCY 81447 [facility] 2 2 N [facility] T [facility]IT [facility] MOD[facility]ITY HOSPITAL SHAMAR - 1 1 [facility] SHAM[facility] 1 1 [facility] - 1 1 N OUTPATIEN [facility] T HOSPITA EMERGENCY 33685 [facility] 1 1 N [facility] T VISIT [facility]ITY [facility]OSPITAL [facility] - 1 1 N OUTPATIEN [facility] 1 1 N OUTPATIEN [facility] 1 1 N OUTPATIEN [facility] UNIVERSIT - 1 1 Y INPATIENT HOSPITAL EMERGENCY 79644 SHAMAR 1 1 [facility] T VISIT HIGH/URGE NT SEVERITY EMERGENCY 56779 [facility] DEPT 1 1 MEDICAL SON VISIT SERV HIGH FOUNDATIO SEVERITY& THREAT [facility] SHAMAR - 0 0 [facility] 0 0 [facility] SH[facility] - 0 0 [facility] 31437 DEENA SHAFFER, [facility] 0 0 SERAFIN Crespo [facility] SHAMAR [facility] 0 0 [facility] OFF[facility] 61299 MADDY LIND JR [facility] 0 0 MEDICAL D D T VISIT SERV 10 [facility] UNIVERSIT - 0 0 Y [facility] UNIVERSIT - [address] [facility] T OFFICE 12658 MADDY COBOS [facility] 0 0 MEDICAL OCTAVIANO S T VISIT SERV 15 [facility] UNIVERSIT - 0 0 Y [facility] CARDINAL - 0 0 [facility] EMERGENCY 81842 [facility], DEPT 0 0 MEDICAL BARBI C VISIT SERV HIGH FOUNDATIO SEVERITY& THREAT [facility] UNIVERSIT - 0 0 Y INPATIENT [facility] SHAMAR - 9 9 [facility] OUTPATIEN [facility] T OFFICE 48532 FELIPE CABRERA OUTTIFFANY 9 9 PRASANTH Mon[place] [facility] 45 [facility] - 9 9 [facility] OUTPATIEN [facility] T OFF[facility] 34073 [place] EL[place] OUTPATI 9 9 TAL GOMEZ T VISIT INTERNAL NATHAN F 15 MED MINUTES HOSPITAL [place] - 9 9 [facility] T EMERGENCY 63425 [place] 9 9 [facility] T VISIT LOW/MODER SEVERITY OFFICE 47959 [place] MCKEMIE OUTPATIEN 9 9 TAL GOMEZ Carlos Enrique VISIT INTERNAL NATHAN F 25 MED MINUTES CRITICAL JAMEL ACCESS 9 9 [facility] OFFICE 40023 [place] BESSON, OUTPATIEN 9 9 TAL Villafana T VISIT INTERNAL 15 MED MINUTES OFFICE 97901 SYBIL DEVINE, KATAT 9 9 JIGNESH SCRUGGS NEW/ESTAB PATIENT 30 MIN HOSPITAL SHAMAR - 9 9 [facility] OUTPATIEN [facility] T CRITICAL [facility] ACCESS 9 9 [facility] OFFICE 88090 [place] MCKEMIE OUTPATIEN 9 9 TAL GOMEZ Carlos Enrique VISIT INTERNAL NATHAN F 15 MED MINUTES OFFICE 65711 [place] OUTPATIEN 8 8 TAL GOMEZ Carlos Enrique VISIT INTERNAL NATHAN F 15 MED MINUTES OFFICE 54168 [place], OUTPATIEN 8 8 TAL Villafana T VISIT INTERNAL 15 MED MINUTES OFFICE 09529 [place] M[place]IE OUTPATIEN 8 8 TAL GOMEZ Carlos Enrique VISIT INTERNAL NATHAN F 15 MED MINUTES OFFICE 14548 FELIPE WERNER, CONSULTAT 8 8 PRASANTH Castillo ION CLINIC NEW/ESTAB PSC PATIENT 40 MIN [facility]OSPITAL SH[facility]AR - 8 8 [facility] OUTPATIEN INC T HOSPITAL SHAMAR - 8 8 [facility] OUTPATIEN [facility] T HOSPITAL SHAMAR - 8 8 [facility] OUTPATIEN INC T OFFICE 32613 [place] MCKEMIE OUTPATIEN 8 8 Carlos Enrique PARADA JR VISIT INTERNAL NATHAN F 15 MED MINUTES OFFICE 89175 [place] ARYANMOIRAMAR[place]OU OUTPATIEN 8 8 Carlos Enrique PARADA JR VISIT INTERNAL [place] [address] [facility]
--- OUTSIDE RECORDS SUMMARY | 2017-02-04 15:20 | External Medical Summary Rpt ---
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 [facility] IC PX 1/> 3 N N [facility] EACH 15 HOSPITA HOSPITA MIN EXERCISES E-STIM G0283 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 IC PX 1/> 3 N N [facility] EACH 15 HOSPITA HOSPITA MIN EXERCISES THERAPEUT 24708 [facility] IC PX 1/> 3 N N [facility] EACH 15 HOSPITA HOSPITA MIN EXERCISES E-STIM G0283 [facility] 1/> AREAS 3 N N OTH THAN [facility] WND CARE HOSPITA HOSPITA PART TX PLAN PHYSICAL 23944 [facility] THERAPY 3 N N EVALUATIO [facility] N HOSPITA HOSPITA MRA NECK 63859 [facility] W/O 2 N N CONTRST [facility] MATERIAL HOSPITA HOSPITA MRI BRAIN 54713 [place] MAT BRAIN 2 RADIOLOGY STEM W/O CONTRAST MATERIAL DUPLEX 98541 [facility] SCAN 2 N N EXTRACRAN [facility] IAL ART HOSPITA HOSPITA COMPL BI STUDY RADEX 62209 MAKSIM SCHAEFFER SHOULDER 2 KARIN KARIN COMPLETE MINIMUM 2 VIEWS NONEMERG A0120 BLUE BLUE TRNSPRT: 2 [facility] ACTION ACTION AREA/OTH SYS RADEX 13193 MAKSIM SCHAEFFER SHOULDER 2 KARIN KARIN COMPLETE MINIMUM 2 VIEWS RADEX 94155 MAKSIM SCHAEFFER SHOULDER 2 KARIN KARIN COMPLETE MINIMUM 2 VIEWS RADEX 21318 MAKSIM SCHAEFFER SHOULDER 2 KARIN KARIN COMPLETE MINIMUM 2 VIEWS RADEX 71434 MAKSIM SCHAEFFER ELBOW 2 2 KARIN KARIN VIEWS RADEX 15526 MAKSIM SCHAEFFER HAND 2 KARIN KARIN MINIMUM 3 VIEWS NONEMERG A0120 BLUE BLUE TRNSPRT: 2 [facility] ACTION ACTION AREA/OTH SYS RADEX 97592 [place] MAT SHOULDER 2 RADIOLOGY COMPLETE MINIMUM 2 VIEWS RADEX 80354 [place] MAT CLAVICLE 2 RADIOLOGY COM[address]COVERE A9270 [facility] D ITEM OR 2 N N SERVICE [facility] HOSPITA HOSPITA RADEX 23059 [place] MAT HUMERUS 2 RADIOLOGY MINIMUM 2 VIEWS ECG 55934 ALICIA VARGAS ROUTINE 1 EMERGENCY EMERGENCY ECG SERVICES SERVICES W/LEAST 12 LDS I&[place] [address] [facility] HEAD/BRAI 1 MEDICAL MEDICAL N W/O IMAGING IMAGING CONTRAST ASS ASS MATERIAL CRITICAL 19840 ALICIA MOORE BAB CARE 1 EMERGENCY ILL/INJUR SERVICES ED PATIENT INIT 30-74 MIN 3D 93462 [facility] RENDERING 1 MEDICAL MEDICAL W/INTERP IMAGING IMAGING & ASS ASS POSTPROCE SS SUPERVISI ON BLOOD 43984 COMBINED COMBINED COUNT 1 PHYSICIAN PHYSICIAN COMPLETE S LA S LA AUTO&AUTO DIFRNTL WBC COLLECTIO 37251 COMBINED COMBINED N VENOUS 1 PHYSICIAN PHYSICIAN BLOOD S LA S LA VENIPUNCT URE COMPREHEN 57533 COMBINED COMBINED SIVE 1 PHYSICIAN PHYSICIAN METABOLIC S LA S LA PANEL HEMOGLOBI 90756 COMBINED COMBINED N 1 PHYSICIAN PHYSICIAN GLYCOSYLA S LA S LA CAMILA A1C LIPID 52404 COMBINED COMBINED PANEL 1 [place] [address] SHAMAR IBANEZ HEAD/BRAI 1 [facility] N W/O INC INC CONTRAST MATERIAL 3D 77465 SHAMAR IBANEZ RENDERING 1 [facility] INC INC W/INTERP& POSTPROC DIFF WORK STATION 3D 59184 [facility] RENDERING 1 MEDICAL [place] W/INTERP IMAGING & ASS POSTPROCE SS SUPERVISI ON COLLECTIO 51877 SHAMAR IBANEZ N VENOUS 1 [facility] BLOOD INC INC VENIPUNCT URE BLOOD 69122 SHAMAR IBANEZ COUNT 1 [facility] COMPLETE INC INC AUTO&AUTO DIFRNTL WBC SUSCEPTIB 85326 SHAMAR IBANEZ LTY STDY 1 [facility] ANTIMICRB INC INC IAL MICRO/AGA R DILUTJ CULTURE 15655 SHAMAR IBANEZ BACTERIAL 1 [facility] INC INC QUANTTATI VE COLONY COUNT URINE CULTURE 23438 SHAMAR IBANEZ BCT 1 [facility] ISOL&PRSM INC INC PTV ID ISOLATE EA URINE URNLS DIP 04865 SHAMAR IBANEZ 1 [facility] STICK/TAB INC INC LET REAGENT AUTO MICROSCOP Y BASIC 88533 SHAMAR IBANEZ METABOLIC 1 [facility] PANEL INC INC CALCIUM TOTAL LEVEL III 64121 PATHOLOGY PATHOLOGY SURG 1 & & PATHOLOGY CYTOLOGY CYTOLOGY LAB LAB GROSS&BISHOP ROSCOPIC EXAM TX SPEECH 60654 [facility] 1 N N VOICE COMMUNITY COMMUNITY COMMJ HOSPITA HOSPITA &/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 LANG 1 N N VOICE COMMUNITY COMMUNITY COMMJ HOSPITA HOSPITA &/CIGARETTE CARTON SEALER Y PROC IND TX SPEECH 00410 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 1 N N VOICE COMMUNITY COMMUNITY COMMJ HOSPITA HOSPITA &/CIGARETTE CARTON SEALER Y PROC IND [place] SPE[place]CH 51132 [facility] 1 N N VOICE COMMUNITY COMMUNITY COMMJ HOSPITA HOSPITA &/CIGARETTE CARTON SEALER Y PROC IND TX SPEECH 41461 [facility] 1 N N VOICE COMMUNITY [facility] COMMJ HOSPITA HOSPITA &/CIGARETTE CARTON SEALER Y PROC IND EVAL 51742 [facility] SPEECH 1 N N LANG [facility] VOICE HOSPITA HOSPITA COMMUNJ &/CIGARETTE CARTON SEALER Y PROC [facility]OSPITAL [address] [place] [address] [facility]GE [facility] MEDICAL KORE[place] DAY SERV MANAGEMEN FOUNDATIO T 30 MIN/< SBSQ 87339 [facility] 1 MEDICAL KOREY CARE/DAY SERV 25 FOUNDATIO MINUTES SBSQ 43455 [facility] 1 MEDICAL KOREY CARE/DAY SERV 25 FOUNDATIO MINUTES MRA NECK 67515 [place] W/O 1 MEDICAL EDW CONTRST SERV MATERIAL FOUNDATIO MRI BRAIN 12540 [place] [facility] BRAIN 1 MEDICAL EDW STEM W/O SERV CONTRAST FOUNDATIO MATERIAL MRA HEAD 02556 [place] W/O 1 MEDICAL EDW CONTRST SERV MATERIAL FOUNDATIO RADIOLOGI 38808 [place] NICKELS C 1 MEDICAL CJ EXAMINATI SERV ON CHEST FOUNDATIO SINGLE VIEW FRONTAL RADEX 51783 [place] ORBITS 1 MEDICAL EDW COMPLETE SERV MINIMUM 4 FOUNDATIO VIEWS ECHO 04200 [place] PERKINS EVA TTHRC R-T 1 MEDICAL 2D SERV W/WOM-MOD FOUNDATIO E COMPL SPEC&COLR D RADEX 03-04-201 46776 [place] ABDOMEN 1 1 MEDICAL VENICE SERV ANTEROPOS FOUNDATIO TERIOR VIEW INITIAL 81478 [place] [facility] 1 MEDICAL KOREY CARE/DAY SERV 50 FOUNDATIO MINUTES 3D 52272 SHAMAR IBANEZ RENDERING 1 [facility] W/INTERP INC INC & [place] [address] SHAMAR IBANEZ INFUSION 1 [facility] THERAPY/P INC INC ROPHYLAXI S /DX 1ST TO 1 HR BLOOD 58408 SHAMAR IBANEZ COUNT 1 [facility] COMPLETE INC INC AUTO&[place] [address] SHAMAR IBANEZ TROPONIN 1 [facility] QUANTITAT INC INC DANIELLE GROUND A0425 [facility]ULANCE AMBULANCE PER SERVICE SERVICE STATUTE MILE COMPREHEN 27375 SHAMAR IBANEZ SIVE 1 [facility] METABOLIC INC INC PANEL URNLS DIP 74490 SHAMAR IBANEZ 1 [facility] STICK/TAB INC INC LET REAGENT AUTO MICROSCOP Y AMB A0427 [facility] SERVICE 1 AMBULANCE AMBULANCE ALS SERVICE SERVICE [place]GENC[place] [address] SHAMAR IBANEZ HEAD/BRAI 1 [facility] N W/O INC INC CONTRAST MATERIAL RADIOLOGI 97718 SHAMAR IBANEZ C 1 [facility] EXAMINATI INC INC ON CHEST SINGLE VIEW FRONTAL CRITICAL 17343 ALICIA GROSS CARE 1 EMERGENCY III ALEXANDER ILL/INJUR SERVICES ED PATIENT INIT 30-74 MIN ECG 93662 SHAMAR IBANEZ ROUTINE 1 [facility] ECG INC INC W/LEAST 12 LDS TRCG ONLY W/O I&R CREATINE 97081 SHAMAR IBANEZ KINASE 1 [facility] TOTAL INC INC CREATINE 36222 SHAMAR IBANEZ KINASE MB 1 [facility] FRACTION INC INC ONLY ECG 69801 ALICIA GROSS ROUTINE 1 EMERGENCY III ALEXANDER ECG SERVICES W/LEAST 12 LDS I&R ONLY MOTION 38957 SHAMAR IBANEZ FLUOR 0 [facility] EVAL INC INC SWLNG FUNCJ C/V REC US SOFT 20363 SHAMAR IBANEZ TISSUE 0 [facility] HEAD & INC INC NECK REAL TIME IMGE DOCM SWALLOWIN 34553 SHAMAR Crespo FUNCJ 0 [facility] W/CINERAD INC INC IOGRAPY/V IDRADIOG NONEMERG A0120 LKLP LKLP TRNSPRT: 0 COMMUNITY COMMUNITY MINI-BUS ACTION N MTN AREA/OTH SYS COMPUTER- 69306 SHAMAR IBANEZ AIDED 0 [facility] DETECTION INC INC SCREENING MAMMOGRAP HY DXA BONE 41336 SHAMAR IBANEZ DENSITY 0 [facility] STUDY 1/> INC INC SITES AXIAL SKEL SCREENING G0202 SHAMAR IBANEZ 0 [facility] MAMMOGRAP INC INC HY ANGELICA INCL CAD WHEN PERFORMD COLLECTIO 77933 SHAMAR IBANEZ N VENOUS 0 [facility] BLOOD INC INC VENIPUNCT URE CULTURE 11025 COMBINED COMBINED BACTERIAL 0 PHYSICIAN PHYSICIAN S LA S LA QUANTTATI VE COLONY COUNT URINE COMPREHEN 31540 SHAMAR IBANEZ SIVE 0 [facility] METABOLIC INC INC PANEL HEMOGLOBI 45254 SHAMAR IBANEZ N 0 [facility]OS[facility] GLYCOSYLA INC INC CAMILA A1C LIPID 60920 SHAMAR IBANEZ PANEL 0 [facility] INC INC LANCETS A4259 DIABETES DIABETES PER BOX 0 CARE CLUB CARE CLUB OF 100 [facility] BLD GLU A4253 DIABETES DIABETES TEST/REAG 0 CARE CLUB CARE CLUB T [facility] HOME BLD GLU MON-50 NORMAL A4256 DIABETES DIABETES LOW AND 0 CARE CLUB CARE CLUB HIGH [facility] CALIBRATO R SOLUTION/ [facility] A4258 DIABETES DIABETES WERED 0 CARE CLUB CARE CLUB DEVICE [facility] E[facility] CYANOCOBA 17555 SHAMAR IBANEZ RADHA 0 [facility] VITAMIN INC INC B-12 LIPID 61729 SHAMAR IBANEZ PANEL 0 [facility] INC INC HEMOGLOBI 64138 SHAMAR IBANEZ N 0 [facility]OS[facility] GLYCOSYLA INC INC CAMILA A1C COMPREHEN 85268 SHAMAR IBANEZ SIVE 0 [facility] METABOLIC INC INC PANEL COLLECTIO 49684 SHAMAR IBANEZ N VENOUS 0 [facility] BLOOD INC INC VENIPUNCT URE SYPHILIS 34879 SHAMAR IBANEZ TEST 0 [facility] NON-TREPO INC INC NEMAL ANTIBODY QUAL BLOOD 78194 SHAMAR IBANEZ COUNT 0 [facility] COMPLETE INC INC AUTO&AUTO DIFRNTL WBC RADEX 94600 [facility] ANKLE 0 Y Y [facility] MINIMUM 3 VIEWS URNLS DIP 35286 COMBINED COMBINED 0 PHYSICIAN PHYSICIAN STICK/TAB S LAB S LAB LET REAGENT AUTO MICROSCOP Y BLD GLU A4253 AM MED AM MED TEST/REAG 0 DIRECT DIRECT T [facility] PHARMACY GLU MON-50 NORMAL A4256 AM MED AM MED LOW AND 0 DIRECT DIRECT HIGH [facility] CALIBRATO PHARMACY PHARMACY R SOLUTION/ CHIPS LANCETS A4259 AM MED AM MED PER BOX 0 DIRECT DIRECT OF 100 [facility] PHARMACY PHARMACY COMMODE E0163 REGINALDO HAIR CHAIR 0 HOME MED HOME MED MOBILE OR EQUIP. EQUIP. [facility] STATIONAR Y W/FIXED ARMS CAST Q4037 MADDY LIND JR, SUPPLIES 0 MEDICAL D D SHORT LEG SERV CAST FOUNDATIO ADULT PLASTER APPLICATI 81905 MADDY LIND JR, ON SHORT 0 MEDICAL D D LEG CAST SERV BELOW FOUNDATIO KNEE-TOE RADEX 43655 [facility] ANKLE 0 Y Y [facility] MINIMUM 3 VIEWS DXA BONE 51899 NEURODIAG LUTZ, DENSITY 0 NOSTICPSC YFN B STUDY 1/> SITES AXIAL SKEL PHYS CERT G0180 MADDY COBOS, MCR-COVR 0 MEDICAL OCTAVIANO S [facility] SERV SRVC PER FOUNDATIO CERT PRD RADEX 47138 [facility] ELBOW 0 Y Y COMPLETE [facility] MINIMUM 3 VIEWS [facility] 27236 MADDY COBOS, DISCHARGE 0 MEDICAL OCTAVIANO S DAY SERV MANAGEMEN FOUNDATIO T 30 MIN/< SBSQ 98614 [place] [facility] 0 MEDICAL OCTAVIANO S CARE/DAY SERV 25 FOUNDATIO MINUTES SBSQ 73017 [facility] 0 MEDICAL OCTAVIANO S CARE/DAY SERV 25 FOUNDATIO MINUTES SBSQ 11033 [facility] 0 MEDICAL OCTAVIANO S CARE/DAY SERV 25 FOUNDATIO MINUTES SBSQ 98138 [facility] 0 MEDICAL VALE J CARE/DAY SERV 25 FOUNDATIO MINUTES SBSQ 62337 [facility] 0 MEDICAL VALE J CARE/DAY SERV 25 FOUNDATIO MINUTES SBSQ 18421 [facility] 0 MEDICAL VALE J CARE/DAY SERV 25 FOUNDATIO MINUTES SBSQ 01545 [facility] 0 MEDICAL OCTAVIANO S CARE/DAY SERV 25 FOUNDATIO MINUTES HOSPITAL 22395 [facility] 0 Y OF [place] DAY [place] E MANAGEMEN INTERNAL T 30 MEDICINE MIN/< INITIAL 58047 [place] [address] MEDICAL OCTAVIANO S CARE/DAY SERV 70 FOUNDATIO MINUTES SBSQ 89351 [facility] 0 Y OF [facility]/DAY [place] E 25 INTERNAL MINUTES MEDICINE SBSQ 18128 [facility] 0 Y OF [facility] CARE/DAY [place] 25 INTERNAL MINUTES MEDICINE SBSQ 08158 [facility] 0 Y OF [place] CARE/DAY [place] 25 INTERNAL MINUTES MEDICINE SBSQ 38581 [facility] 0 Y OF [place] M CARE/DAY [place] 25 INTERNAL MINUTES MEDICINE SBSQ 30332 [facility] 0 Y OF [place] M CARE/DAY [place] 25 INTERNAL MINUTES MEDICINE SBSQ 64509 [facility] 0 Y OF [place] CARE/DAY [place] 25 INTERNAL MINUTES MEDICINE RADEX 46358 [place], ANKLE 0 MEDICAL MAEGAN N COMPLETE SERV MINIMUM 3 FOUNDATIO VIEWS INITIAL 78974 [facility] 0 Y OF CHERYLE M CARE/DAY [place] 50 INTERNAL MINUTES MEDICINE RADEX 06366 [place], ELBOW 0 MEDICAL MAEGAN N COMPLETE SERV MINIMUM 3 FOUNDATIO VIEWS RADEX 37417 [place], ANKLE 0 MEDICAL MAEGAN N COMPLETE SERV MINIMUM 3 FOUNDATIO VIEWS RADEX 36700 [place], FOOT 0 MEDICAL MAEGAN N COMPLETE SERV MINIMUM 3 FOUNDATIO VIEWS ROTARY A0436 PETROLEUM PETROLEUM WING AIR 0 MILEAGE HELICOPTE HELICOPTE PER RS INC RS INC STATUTE MILE MODERATE 64050 [place] JENNIFER, SEDATJ 0 MEDICAL BARBI C DIFF SERV PHYS/QHP FOUNDATIO 5/>YRS INIT 30 MIN AMB A0431 PETROLEUM PETROLEUM SERVICE 0 CONVNTION HELICOPTE HELICOPTE AIR SRVC RS INC RS INC TRANSPORT [address] RADIOLOGI 61307 [place], C 0 MEDICAL MAEGAN N EXAMINATI SERV ON PELVIS FOUNDATIO 1/2 VIEWS ECG 27804 [place] Aguila CASTELLANOS S ROUTINE 0 MEDICAL ECG SERV W/LEAST FOUNDATIO 12 LDS I&R ONLY RADIOLOGI 46266 [place], C 0 MEDICAL MAEGAN N EXAMINATI SERV ON TIBIA FOUNDATIO & FIBULA 2 VIEWS ECHO 69950 SHAMAR IBANEZ TTHRC R-T 9 [facility] 2D INC INC W/WOM-MOD E COMPL SPEC&COLR D NON-INVAS 92482 SHAMAR IBANEZ DANIELLE 9 [facility] PHYSIOLOG INC INC IC STUDY EXTREMITY 3 LEVLS ECG 20583 SHAMAR LOVEMIE ROUTINE [address] [facility] W/LEAST PROF SERV 12 LDS I&R ONLY ECG 11596 SHAMAR IBANEZ ROUTINE 9 [facility] ECG INC INC W/LEAST 12 LDS TRCG ONLY W/O I&R SEAT E0156 REGINALDO HAIR ATTACHMEN 9 HOME MED HOME MED T WALKER EQUIP. EQUIP. LLC LLC WALKER E0143 REGINALDO HAIR FOLDING 9 HOME MED HOME MED WHEELED EQUIP. EQUIP. ADJUSTABL [facility] E/FIXED HEIGHT LANCETS A4259 AM MED AM MED PER BOX 9 DIRECT DIRECT OF 100 LLC LLC PHARMACY PHARMACY NORMAL A4256 AM MED AM MED LOW AND 9 DIRECT DIRECT HIGH LLC LLC CALIBRATO PHARMACY PHARMACY R SOLUTION/ [facility] BLD GLU A4253 AM MED AM MED TEST/REAG 9 DIRECT DIRECT T STRIPS LLC LLC HOME BLD PHARMACY PHARMACY GLU APPLICATI 03852 [place] ON SHORT 9 [facility] LEG CENTER CENTER SPLINT CALF FOOT RADEX 54022 [place] ANKLE [address] [place] [address] COMPLETE CENTER CENTER MINIMUM 3 VIEWS BLD [...] OF 100 LLC LLC PHARMACY PHARMACY SCREENING 98317 JAMEL MCCULLOUGH 9 CO [facility]NOTE 2] HY BILATERAL BLD GLU A4253 AM MED AM MED TEST/REAG 9 DIRECT DIRECT T STRIPS LLC LLC HOME BLD PHARMACY PHARMACY GLU LANCETS A4259 AM MED AM MED PER BOX 9 DIRECT DIRECT OF 100 LLC [facility] PHARMACY PHARMACY NORMAL A4256 AM MED AM MED LOW AND 9 DIRECT DIRECT HIGH LLC [facility] PHARMACY PHARMACY R SOLUTION/ [facility]ICAL 79702 SHAMAR IBANEZ NUTRITION 9 [facility] INC INC ASSMT&IVN TJ INDIV EACH 15 SD BLOOD 05887 JAMEL MCDANIEL 9 CO MS SMEAR [facility] MCRSCP W/MNL DIFRNTL WBC COUNT COMPREHEN 11418 JAMEL MCCULLOUGH SIVE 9 CO MS METABOLIC [facility] [place] [address] JAMEL MCCULLOUGH THYROID 9 CO [facility] NG HORMONE TSH BLOOD 69074 JAMEL MCCULLOUGH COUNT 9 CO [facility] AUTO&AUTO DIFRNTL WBC COLLECTIO 60416 JAMEL MCCULLOUGH N VENOUS 9 CO MS BLOOD [facility] [place] [address] JAMEL MCCULLOUGH FOLIC 9 CO MS ACID [facility] SERUM CYANOCOBA 34728 JAMEL MCCULLOUGH RADHA 9 CO MS VITAMIN [facility] B-12 HEMOGLOBI 58969 JAMEL MCCULLOUGH N 9 [facility] GLYCOSYLA [facility] CAMILA A1C LIPID 49384 JAMEL MCCULLOUGH PANEL 9 [facility] LANCETS A4259 AM MED AM MED PER BOX 9 DIRECT DIRECT OF 100 [facility] PHARMACY PHARMACY BLD GLU A4253 AM MED AM MED TEST/REAG 9 DIRECT DIRECT T STRIPS [facility] HOME D PHARMACY PHARMACY GLU FRI- URNLS DIP 80206 [place] KEYANNA, 8 [facility] A STICK/TAB INTERNAL LET RGNT MED NON-AUTO W/O MICRSCP BLD GLU A4253 AM MED AM MED TEST/REAG 8 DIRECT DIRECT T STRIPS [facility] HOME BLD PHARMACY PHARMACY GLU LANCETS A4259 AM MED AM MED PER BOX 8 DIRECT DIRECT OF 100 [facility] PHARMACY PHARMACY OBSERVATI 42122 [place] KEY[place]NA, ON CARE 8 [place] A[place] A DISCHARGE INTERNAL MED MANAGEMEN T AMB A0427 [facility] SERVICE 8 [facility] EMERGENCY TRANSPORT LEVEL 1 GROUND A0425 [facility] MILEAGE 8 [facility] STATUTE MILE INITIAL 28344 [place] ELSA OBSERVATI 8 [facility], ON INTERNAL NATHAN F CARE/DAY MED 30 MINUTES LANCETS A4259 AM MED AM MED PER BOX 8 DIRECT DIRECT OF 100 [facility] PHARMACY BLD GLU A4253 AM MED AM MED TEST/REAG 8 DIRECT DIRECT T STRIPS [facility] HOME D PHARMACY PHARMACY GLU FRI-50 POLYSOM 88671 SHAMAR IBANEZ 6/>YRS 8 [facility] SLEEP 4/> INC INC ADDL BUCKY ATTND SLING 03183 [facility], OPERATION 8 [facility] STRESS [facility]IN[facility] OF INCONTINE NCE [place] [facility] THER 32877 SHAMAR IBANEZ PROPH/DX 8 [facility] NJX EA INC INC SEQL IV PUSH SBST/DRUG REPAIR C1771 SHAMAR IBANEZ DEVICE 8 [facility] URINARY INC INC INCONTINE NCE W/SLING GRAFT CULTURE 24355 SHAMAR FRENCHON BACTERIAL 8 [facility] INC INC QUANTTATI VE COLONY [place] URINE IV NFUS 10532 SHAMAR IBANEZ THER 8 [facility] PROPH/[place] [address] SHAMAR SHAMAR THER 8 [facility] PROPH/DX INC INC 1ST >1 HR ANES 32775 [facility], EXTRAPERI 8 ANESTH NATHAN [place] OF THE LWR ABD FRANCISCO W/URINARY TRACT NOS URNLS DIP 73338 SHAMAR IBANEZ 8 [facility] STICK/TAB INC INC LET REAGENT AUTO MICROSCOP Y GLUC BLD 91257 SHAMAR IBANEZ GLUC MNTR 8 [facility] DEV INC INC CLEARED FDA SPEC HOME USE ECG 66993 SHAMAR BAEZAKEMIE ROUTINE 8 [facility] NATHAN Castillo W/LEAST PROF SERV 12 LDS I&R ONLY ECG 65102 SHAMAR IBANEZ ROUTINE 8 [facility] ECG INC INC W/LEAST 12 LDS TRCG ONLY W/O I&R BLOOD 58955 SHAMAR SHAMAR COUNT 8 [facility] COMPLETE INC INC AUTO&AUTO DIFRNTL WBC COLLECTIO 64348 SHAMAR IBANEZ N VENOUS 8 [facility] BLOOD INC INC VENIPUNCT URE BASIC 02422 SHAMAR IBANEZ METABOLIC 8 [facility] PANEL INC INC CALCIUM TOTAL COMPLEX 82642 [facility], UROFLOMET 8 [facility] RY [facility] [place] [facility] BLADDER 55663 [facility], PRESSURE 8 [facility] MEASUREME CLIN[facility] OF NT DURING FILLING [place] [facility] URTL 70182 [facility], PRESS 8 [facility] PRO[facility] VOIDING 57543 [facility], PRESS 8 [facility] STDS BLDR CLINIC OF VOIDING PRESS ANY [facility] T[facility] VOID 08487 [facility], PRESSURE 8 [facility] STUDIES [facility] [place] [place] [facility] BLD GLU A4253 AM MED AM MED [...] End Date Code Location Performer Type Date [facility] SHAMAR - 7 7 [facility] OUTPATIEN INC T OFFICE 53681 [facility] DAREN OUTPATIEN 7 7 PHYSICIAN T VISIT S GROUP 25 MINUTES [facility] - 7 7 [facility] SHAMAR - 7 7 [facility] OUTPATIEN INC T OFFICE 57674 [facility] D[facility] OUTPATIEN 7 7 PHYSICIAN T [facility]ISIT S GROUP 40 MINUTES [facility]OSPITAL SH[facility] - 7 7 [facility] SHAMAR - 7 7 [facility] SHAM[facility] - 7 7 [facility] OUTPATIEN INC T OFFICE 95014 [facility] D[facility] OUTPATIEN 7 7 PHYSICIAN T VISIT S GROUP 40 MINUTES OFFICE 83106 [facility] OUTPATIEN 7 7 PHYSICIAN T VISIT S GROUP 15 MINUTES [facility]OSPITAL SHAMAR - 7 7 [facility] OUTPATIEN INC T OFFICE 48193 [facility] OUTPATIEN 7 7 PHYSICIAN T NEW 20 S GROUP MINUTES HOSPITAL SHAMAR - 6 6 [facility] SH[facility] - 6 6 [facility] OFFICE [address] [place] TIFFANY PHI OUTPATIEN 5 5 MEDICAL T NEW 30 SERV MINUTES FOUNDATIO N OFFICE 53840 EAR, NOSE SHASHY OUTPATIEN 5 5 AND SANDOVAL T VISIT THROAT 25 SPECIAL [facility] SHAMAR - 5 5 [facility] 5 5 [facility] SHAMAR - 5 5 [facility] SHAMAR - 5 5 [facility] SHAMAR - 5 5 [facility] SHAMAR - 5 5 [facility] SHAMAR - 5 5 [facility] SHAMAR [facility] 5 5 [facility] SHAMAR - 4 4 [facility] HOME VST 10124 HENRI SADLER EST PT 4 4 [place] [facility] SIGNIF NEW PROB 60 MINS [facility] - 4 4 N [facility]PAT[facility] 4 4 N OUTPATIEN [facility] - 4 4 N OUTPATIEN [facility] 4 4 N OUTPATIEN [facility] EMERGENCY 91683 [facility] 3 3 N [facility] V[facility] MODERATE [facility]VERITY [facility] - 3 3 N OUTPATIEN [facility] - 3 3 N OUTPATIEN [facility] T HOSP[facility] CR[facility] ACCESS 3 3 VEGETABLE CUTTER [facility] HOS EMERGENCY 01430 [facility], 3 3 VEGETABLE CUTTER DEPARTMEN [facility] T VISIT [facility] MODERATE [facility]VERITY [facility] - 3 3 N OUTPATIEN [facility] - 2 2 N OUTPATIEN [facility] - 2 2 N OUTPATIST. [facility] T HOSPITA [facility] 67649 [facility] 30 MINUTES [facility] - 2 2 N OUTPATIST. [facility] T HOSPITA [facility]ICE 67177 IVANSDBelem [facility] 2 [facility] T VISIT 15 MINUTES EMERGENCY 63747 [facility] 2 2 N [facility] VISIT [facility] - 1 1 [facility] 1 1 [facility] 1 1 N OUTPATIEN [facility] T HOSPITA EMERGENCY 16378 [facility] 1 1 N [facility] T VISIT [facility] - 1 1 N OUTPATIEN [facility] - 1 1 N OUTPATIEN [facility] 1 1 N [facility] UN[facility] - 1 1 Y INPATIENT HOSPITAL EMERGENCY 65933 [facility] 1 1 [facility] T VISIT HIGH/URGE NT SEVERITY EMERGENCY 04020 [facility] DEPT 1 1 MEDICAL SON VISIT SERV HIGH FOUNDATIO SEVERITY& THREAT [facility] SH[facility] - 0 0 [facility] 0 [facility] 0 0 [facility] 33892 DEENA SHAFFER, [facility] 0 0 SERAFIN Crespo [facility] 30 [facility] SHAMAR [facility] 0 0 [facility] 00650 [facility]ADDY LIND [facility] 0 MEDICAL D D T VISIT SERV 10 [facility] UNIVERS[facility] - 0 0 [facility] - [address] [facility] T OFFICE 72850 MADDY COBOS [facility] 0 0 MEDICAL OCTAVIANO S T VISIT SERV 15 [facility] UN[facility] - 0 0 Y [facility] - 0 0 [place] [facility] EMERGENC[facility] 45827 [facility], DEPT 0 0 MEDICAL BARBI C VISIT SERV HIGH FOUNDATIO SEVERITY& THREAT [facility] - 0 0 Y INPATIENT [facility] SHAMAR - 9 9 [facility] OUTPATIEN [facility] T OFFICE 04819 FELIPE CABRERA OUTTIFFANY 9 9 PRASANTH Monaco [facility] 45 [facility] SHAMAR [facility] 9 9 [facility] OUTPATIEN [facility] T OFFICE 19066 [place] ELSA OUTPATI 9 9 TAL GOMEZ T VISIT INTERNAL NATHAN F 15 MED MINUTES HOSPITAL [place] - 9 9 [facility] 23758 [place] 9 9 [facility] T VISIT LOW/MODER SEVERITY OFFICE 97780 [place] MCKEMIE OUTPATIEN 9 9 TAL GOMEZ Carlos Enrique VISIT INTERNAL NATHAN F 25 MED MINUTES CRITICAL JAMEL ACCESS [address] [facility] OFFICE 31233 [place], OUTPATIEN 9 9 TAL Villafana T VISIT INTERNAL 15 MED MINUTES OFFICE 52052 SYBIL DEVINE, KATAT 9 9 JIGNESH SCRUGGS NEW/ESTAB PATIENT 30 MIN [facility] - 9 9 [facility] T CRITICAL [facility] ACCESS [address] [facility] OFFICE 40859 [place] MCKEMIE OUTPATIEN 9 9 TLA GOMEZ Carlos Enrique VISIT INTERNAL NATHAN F 15 MED MINUTES OFFICE 81501 [place] OUTPATIEN 8 8 TAL GOMEZ Carlos Enrique VISIT INTERNAL NATHAN F 15 MED MINUTES OFFICE 53177 [place], OUTPATIEN 8 8 TAL Villafana T VISIT INTERNAL 15 MED MINUTES OFFICE 23473 [place] M[place] OUTPATIEN 8 8 TAL GOMEZ Carlos Enrique VISIT INTERNAL NATHAN F 15 MED MINUTES OFFICE 17421 FELIPE WERNER, CONSULTAT 8 8 PRASANTH Castillo ION CLINIC NEW/ESTAB PSC PATIENT 40 MIN [facility] - 8 8 [facility] T [facility] - 8 8 [facility] T HOSPITAL SHAMAR - 8 8 [facility] INC T OFFICE 65691 [place] MCK[place] OUTPATIEN 8 8 Carlos Enrique PARADA JR VISIT INTERNAL NATHAN F 15 MED MINUTES OFFICE 41173 [place] OUTPATIEN 8 8 Carlos Enrique PARADA JR VISIT INTERNAL [place] [address] MED [facility]
--- OUTSIDE RECORDS SUMMARY | 2017-02-04 15:29 | External Medical Summary Rpt ---
Author Author , HARLEY Thakkar HARLEY Address Unknown Phone [email or web address] Chinese Care Team Providers Care Supervisor [employer] Name Role Phone [facility] Unavailable Unavailable PHARMACY, [facility], Unavailable Unavailable [facility] Unavailable Unavailable [facility]ACY # 1, [facility] JHONATHANCHERYLE CONTI, Unavailable Unavailable CHERYLE BELTRAN M LENORA HANSEN Unavailable Unavailable ANA GARCIA, Unavailable Unavailable ANA BRICEÑO RICHARD, Unavailable Unavailable [facility] Unavailable Unavailable [facility], [facility] Unavailable Unavailable [facility], [facility] AREVALO, AREVALO Unavailable Unavailable AREVALO ALL, AREVALO ALL Unavailable Unavailable [employer] [facility], Unavailable Unavailable [employer] [facility] Unavailable Unavailable SERVICE, [facility] Unavailable Unavailable HOSP, [facility] CASE JUS, CASE JUS [...] Unavailable ROBERT AUGUSTA, Unavailable Unavailable ROBERT AUGUSTA KATHLEEN JONES, Unavailable Unavailable ROBERT KATHLEEN [facility] Unavailable Unavailable LLC, [facility] DEBBIMAEGAN OLIVEIRA F, Unavailable Unavailable DEBBIMAEGAN OLIVEIRA F [facility] Unavailable Unavailable SPECIAL, [facility] Un[facility] ESCOTT EDW, ESCOTT Unavailable Unavailable [facility] Unavailable Unavailable [facility], [facility] Unavailable Unavailable HOSPITA, [facility] GILBERTO RHO, GILBERTO Unavailable Unavailable RHO GILBERTO RHO, GILBERTO Unavailable Unavailable [facility] Unavailable Unavailable CARE, [facility] Unavailable Unavailable CARE, [facility] Unavailable Unavailable INC, [facility], Unavailable Unavailable [facility], Unavailable Unavailable [facility] JOAQUIN BERTRAND Unavailable Unavailable [facility] Unavailable Unavailable [facility], [facility] Unavailable Unavailable [facility], [facility] BENÍTEZ-JULIET EVELIN, Unavailable Unavailable BENÍTEZ-JULIET EVELIN B[facility]ÍTEZ-JULI[facility] EVELIN, Unavailable Unavailable BENÍTEZ-JULIET EVELIN [facility] Unavailable Unavailable IMAGING [facility], [facility] SUDHAKAR, SELMA Crespo, SUDHAKAR, Unavailable Unavailable SELMA Crespo [facility] # Unavailable Unavailable [id number], [facility] # [id number] Aguila CASTELLANOS, Aguila CASTELLANOS Unavailable Unavailable [facility] Unavailable [facility], [facility] TRUJILLO, TRUJILLO Unavailable Unavailable [facility], Unavailable Unavailable [facility] YFN ZENDEJAS, AASHISH, Unavailable Unavailable YFN Escamilla [facility] Unavailable Unavailable SERVICES, [facility] BRAD LEE Unavailable Unavailable RODY MUNOZ, Unavailable Unavailable MCMOIRAMI[facility]lem MUNOZ, Unavailable Unavailable NATHAN TUCKER JR, JR Unavailable Unavailable F, NATHAN HUNTER JR MD[address] [place] [address], Unavailable Unavailable [address] [facility] Unavailable Unavailable [facility], [facility], Unavailable Unavailable [facility] JENNIFER, BARBI C, Unavailable Unavailable [facility], BARBI C [facility], [facility] Unavailable Unavailable [facility], [facility] NATHAN MUNOZ, Unavailable Unavailable NATHAN MUNOZ STEPHANIE E, Unavailable Unavailable TREE PÉREZ [facility], Unavailable Unavailable [facility] NICKELS CJ, NICKELS Unavailable Unavailable [facility] Unavailable Unavailable LAB, [facility] Unavailable Unavailable LAB, [facility] JIGNESH DEVINE, Unavailable Unavailable JIGNESH DEVINE PETREA KOREY, PETREA Unavailable Unavailable [facility] Unavailable Unavailable INC, [facility] LELO JR, D D, LELO Unavailable Unavailable JR, D D PULMANO VENICE, PULMANO Unavailable Unavailable VENICE GAN MUH, GAN Unavailable Unavailable MUH RECHTIN DOCKING SAW OPERATOR, RECHTIN Unavailable Unavailable DOCKING SAW OPERATOR [place] ALEXANDER, Unavailable Unavailable [place] ALEXANDER [place] ALEXANDER, Unavailable Unavailable [place] ALEXANDER CHANDRIKA, OCTAVIANO S, Unavailable Unavailable CHANDRIKA, OCTAVIANO S DEENA GOMES Unavailable Unavailable SERAFIN GO, Unavailable Unavailable SERAFIN SHAFFER, DAREN Unavailable Unavailable MAEGAN WOODALL, Unavailable Unavailable MAEGAN WOODALL PERKINS EVA, PERKINS EVA Unavailable Unavailable SOKAN BAB, SOKAN BAB Unavailable Unavailable [facility] Unavailable Unavailable [facility], [facility] VALE ARZATE, Unavailable Unavailable VAL[facility] AR[facility]ATE [facility] Unavailable Unavailable CENTER, [facility] [place] [facility], [facility] PHI Unavailable Unavailable [facility], Unavailable Unavailable [facility] WEHRMAN III ALEXANDER, Unavailable Unavailable WEHRMAN III ALEXANDER MAKSIM FRAZIER, MAKSIM Unavailable Unavailable KARIN FRAZIER, MAKSIM Unavailable Unavailable KARIN [facility] Unavailable Unavailable [facility] ROSALIE MAT, ROSALIE MAT Unavailable Unavailable ROSALIE MAT, ROSALIE MAT Unavailable Unavailable Purpose Continuity of Care Document - 07-06-2007 through 2016 Problems Code Diagnosis DOS Provider Status E785 HYPERLIPIDE 01-07-2017 [facility] SUSANA [facility]YS[facility]ANS UNSPECIFIED GROUP I10 ESSENTIAL 01-07-2017 [facility] PRIMARY PHYSICIANS HYPERTENSIO GROUP N I2510 ASHD TUNTUTULIAK 01-07-2017 [facility] 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 ANGINA PECTORIS I6523 OCCLUSION & 01-07-2017 [facility] STENOSIS [facility] BILATERAL INC CAROTID ARTERIES I6529 OCCLUSION & 01-07-2017 [facility] STENOSIS PHYSICIANS UNSPECIFIED GROUP CAROTID ARTERY M542 CERVICALGIA 01-07-2017 [facility] R42 DIZZINESS 01-07-2017 [facility] AND PHYSICIANS GIDDINESS GROUP R5383 OTHER 01-07-2017 [facility] FATIGUE PHYSICIANS GROUP I208 OTHER FORMS 01-01-2017 [facility] OF ANGINA [facility] PECTORIS INC Z8673 PERSONAL HX 01-01-2017 [facility] TIA & [facility] CEREB INC INFARCT NO RESID DEFICIT I209 ANGINA 12-17-2016 [facility] PECTORIS [facility] UNSPECIFIED INC I639 CEREBRAL 12-17-2016 [facility] INFARCTION PHYSICIANS UNSPECIFIED GROUP Z9114 PATIENTS 12-17-2016 [facility] OT PHYSICIANS NONCOMPLIAN GROUP CE W/MEDICATIO N REGIMEN R0989 OT SPEC SX 12-04-2016 [facility] & SIGNS [facility] INVLV THE INC CIRC & RESP SYS I6350 CEREBRAL 10-29-2016 [facility] INFARCT D/T PHYSICIANS UNS GROUP OCCL/STEN UNS CEREB ART B59369 SPONDYLOSIS 10-21-2016 [facility] W/O PHYSICIANS MYELOPATH/R GROUP ADICULOPATH Y CERV RGN R1310 DYSPHAGIA 10-21-2016 [facility] UNSPECIFIED PHYSICIANS GROUP K449 DIAPHRAGMAT 10-11-2016 [facility] HERNIA MEDICAL W/O IMAGING ASS OBSTRUCTION OR GANGRENE R070 PAIN IN 10-11-2016 [facility] R7989 OTHER SPEC 10-09-2016 [facility] ABNORMAL PHYSICIANS FINDINGS LA BLOOD CHEMISTRY D649 ANEMIA 03-11-2016 COM[facility] UNSPECIFIED PHYSICIANS LA E119 TYPE 2 03-11-2016 [facility] DIABETES PHYSICIANS MELLITUS LA WITHOUT COMPLICATIO NS R0609 OTHER FORMS 01-09-2016 [facility] OF DYSPNEA [facility]OS[facility] INC R011 CARDIAC 10-04-2015 [facility]UR[facility]UR [facility] UNSPECIFIED INC R0600 DYSPNEA 10-04-2015 [place] [facility]PEC[facility] ASS X92346 OTHER LONG 10-04-2015 [facility] TERM [facility] CURRENT INC DRUG THERAPY G95365 UNS 06-29-2015 [facility] PRE-EXISTIN [facility] G HTN COMP ELDER CARE PREG THIRD TRIMESTER J449 CHRONIC 04-17-2015 [facility] OBSTRUCTIVE [facility] PULMONARY ELDER CARE DISEASE UNS M5136 OT 04-06-2015 [facility] MEDICAL INTERVERTEB SERV RAL DISC FOUNDATION DEGEN LUMBAR REGION 272 DISORDERS 03-10-2015 [facility] OF LIPOID [facility] METABOLISM ELDER CARE 300 ANXIETY 03-10-2015 [facility] DISSOCIATIV [facility] E AND ELDER CARE SOMATOFORM DISORDERS 401 ESSENTIAL 03-10-2015 [facility] HYPERTENSIO [facility] N ELDER CARE 430 SUBARACHNOI 03-10-2015 [facility] HEMORRHAGE ELDER CARE 715 OSTEOARTHRO 03-10-2015 [facility] ALLIED ELDER CARE DISORDERS 00747 UNSPECIFIED 02-28-2015 EAR, NOSE AND THROAT SENSORINEUR SPECIAL AL HEARING LOSS 7813 LACK OF 02-21-2015 [facility] COORDINATIO [facility] N INC V571 OTHER 02-21-2015 [facility] PHYSICAL [facility] THERAPY INC 15035 ATHEROSLERO 11-30-2014 [facility] NATV ART [facility] EXTREM INC W/INTERMIT CLAUDICAT 4439 UNSPECIFIED 11-30-2014 [place] PERIPHERAL [facility]ICAL VASCULAR IMAGING ASS DISEASE 7213 LUMBOSACRAL 10-31-2014 [place] [facility] SPONDYLOSIS IMAGING ASS WITHOUT MYELOPATHY 21587 DISPLCMT 10-31-2014 [place] LUMBAR MEDICAL INTERVERT IMAGING ASS DISC W/O MYELOPATHY 99130 DEGEN 10-31-2014 [place] LUMBAR/LUMB MEDICAL OSACRAL IMAGING ASS INTERVERTEB RAL DISC 77937 SPINAL STEN 10-31-2014 [place] LUMB REG MEDICAL W/O IMAGING ASS NEUROGENIC CLAUDICATIO N 7242 LUMBAGO 10-31-2014 [facility] INC V641 SURG/OTH 10-03-2014 [facility] PROC NOT [facility] DONE INC BECAUSE CONTRAINDIC ATION 7295 PAIN IN 08-30-2014 [facility] SOFT [facility] TISSUES OF INC LIMB 9597 INJURY 08-30-2014 [place] OTHER&UNSPE MEDICAL CIFIED KNEE IMAGING ASS LEG ANKLE&FOOT V7189 OBSERVATION 08-30-2014 [place] OTHER MEDICAL SPECIFIED IMAGING ASS SUSPECTED CONDITIONS 82329 PAIN IN 08-21-2014 [facility] JOINT [facility] PELVIC INC REGION AND THIGH 75605 UNSPECIFIED 06-18-2014 [facility] SITE OF MEDICAL ANKLE EQUIPMENT SPRAIN AND STRAIN 08703 PAIN IN 06-14-2014 [facility] JOINT, [facility] HOS[facility] ANKLE AND INC FOOT 6918 OTHER 11-29-2013 [facility] ATOPIC [place] DERMATITIS [facility] AND RELATED CONDITIONS 6989 UNSPECIFIED 11-29-2013 [facility] PRURITIC [place] DISORDER [facility] 08898 GEN 11-29-2013 [facility] OSTEOARTHRO [place] SIS LLC INVOLVING MULTIPLE SITES 15980 OTHER 11-29-2013 [facility] MALAISE AND [place] FATIG[facility] LLC 7821 RASH AND 11-29-2013 [facility] OTHER [place] NONSPECIFIC LLC SKIN ERUPTION 7823 EDEMA 11-29-2013 [facility] 8248 UNSPECIFIED 11-29-2013 [facility] CLOSED [place] FRACTURE OF LLC ANKLE 7812 ABNORMALITY 10-21-2013 ROSALIE MAT OF GAIT 15617 10-21-2013 [facility] ACTION 2113 BENIGN 10-13-2013 [facility] NEOPLASM OF OLOGY AND COLON HEPATOL 43603 UNSPECIFIED 09-03-2013 [facility] OSTEOPOROSI HOSPITA S 8242 CLOSED 07-05-2013 [facility] FRACTURE OF LATERAL MALLEOLUS V664 CONVALESCEN 07-05-2013 [facility] CE FOLLOWING TREATMENT OF FRACTURE 55945 DIAB W/O 06-11-2013 [facility] COMP TYPE COMMUNITY II/UNS NOT HOSPITA STATED UNCNTRL 2720 PURE 06-11-2013 [facility] HYPERCHOLES [facility] TEROLEMIA HOSPITA 4019 UNSPECIFIED 06-11-2013 [facility] ESSENTIAL [facility] HYPERTENSIO HOSPITA N 8244 CLOSED 06-11-2013 [facility] BIMALLEOLAR FRACTURE E8859 FALL FROM 06-11-2013 [facility] OTHER SLIPPING TRIPPING OR STUMBLING 85609 BORDERLINE 12-30-2012 [place] GLAUCOMA ALEXANDER WITH ANATOMICAL [place]OW [place]GLE 35318 NUCLEAR 12-30-2012 [place] SCLEROSIS ALEXANDER 3670 HYPERMETROP 12-30-2012 [place] IA ALEXANDER 52374 UNSPECIFIED 12-30-2012 [place] SUBJECTIVE ALEXANDER VISUAL DISTURBANCE 67732 ESOPHAGEAL 11-12-2012 [facility] REFLUX NKLIN EVELIN 81176 UNS 11-12-2012 [facility] GASTRITIS&G NKLIN EVELIN ASTRODUODIT IS W/O MENTION HEMORR 9953 ALLERGY 07-31-2012 [facility] UNSPECIFIED PRASHANT NOT ELSEWHERE CLASSIFIED 7231 CERVICALGIA 07-29-2012 [facility] H[facility]PITA 94521 UNSPECIFIED 07-26-2012 GAN MU ARTHROPATHY SITE UNSPECIFIED V1254 PERSONAL HX 07-26-2012 [facility] VALENTE TIA & CI W/O RESIDUAL DEFICITS V4589 OTHER 07-26-2012 [facility] POSTSURGICA L STATUS OTHER V8801 ACQUIRED 07-26-2012 [facility] ABSENCE OF BOTH CERVIX AND UTERUS 80430 OCCLUSION&S 04-22-2012 [facility] CAROTID ART HOSPITA W/O MENTION INFARCT 17712 DYSARTHRIA 04-22-2012 ROSALIE MAT 74418 OCCL&STENOS 03-25-2012 ROSALIE MAT MX&BILAT PRECERBRL ART W/O INFARCT 44879 UNSPECIFIED 03-25-2012 [facility] ARTERY HOSPITA OCCLUSION W/INFARCT 99038 CLOSED 12-18-2011 MAKSIM FRAZIER FRACTURE UNSPEC PART UPPER END HUMERUS 2724 OTHER AND 11-25-2011 ELSA GOMEZ UNSPECIFIED ALEXANDER HYPERLIPIDE SUSANA 34550 PAIN IN 09-06-2011 MAKSIM KARIN JOINT, UPPER ARM 07277 PAIN IN 09-06-2011 MAKSIM KARIN JOINT, HAND 21618 PAIN IN 09-02-2011 [facility] [place] JOINT, RADIOLOGY SHOULDER REGION 51338 CLOSED 09-02-2011 [facility] FRACTURE OF COMMUNITY SURGICAL HOSPITA NECK OF HUMERUS 02962 OPEN 09-02-2011 NEGIN DOCKING SAW OPERATOR FRACTURE OF SURGICAL NECK OF HUMERUS 9592 INJURY 09-02-2011 [facility] [place] OTHER&UNSPE RADIOLOGY CIFIED SHOULDER&UP PER ARM E8888 OTHER FALL 09-02-2011 RECHTIN DOCKING SAW OPERATOR 47915 OTHER 04-25-2011 [facility] [place] [address] ALTERED 04-25-2011 [place] MENTAL MEDICAL STATUS IMAGING ASS 82592 LEUKOCYTOSI 04-15-2011 COMBINED S PHYSICIANS UNSPECIFIED LA 436 ACUTE BUT 03-13-2011 [facility] ILL-DEFINED MEM HOS[facility] INC CEREBROVASC ULAR DISEASE 7840 HEADACHE 03-13-2011 [facility] 83955 YABA MONKEY 03-07-2011 [facility] TUMOR [facility] VIRUS INC 7881 DYSURIA 03-07-2011 [facility] INC 90580 ULCER OF 12-14-2010 PATHOLOGY & LOWER LIMB, CYTOLOGY LAB UNSPECIFIED 1330 SCABIES 11-26-2010 [facility] 9244 CONTUSION 11-26-2010 [facility] OF MULTIPLE COMMUNITY SITES OF HOSPITA LOWER LIMB 9248 CONTUSION 11-26-2010 [facility] OF MULTIPLE EMERGENCY SITES NEC SERVICES 11127 OTHER 10-26-2010 [facility] SPEECH COMMUNITY DISTURBANCE HOSPITA V573 CARE 10-26-2010 [facility] INVOLVING COMMUNITY USE REHAB HOSPITA SPEECH-LANG [place] 5990 URINARY 08-27-2010 OR MEDICAL TRACT SERV INFECTION FOUNDATIO SITE NOT [...] OPENING FOUNDATIO DIGESTIVE TRACT 1123 CANDIDIASIS 08-23-2010 [facility] 69139 CORONARY 08-23-2010 [facility] OSIS TUNTUTULIAK CORONARY ARTERY 54265 OTHER 08-23-2010 [place] DISEASES OF MEDICAL LUNG NOT IMAGING ASS ELSEWHERE CLASSIFIED 87559 TRANSIENT 08-23-2010 [place] [facility] ALTERATION SERV OF FOUNDATIO AWARENESS 2409 GOITER, 04-19-2010 [facility] UNSPECIFIED MEM HOSP INC 79938 DYSPHAGIA 04-19-2010 [place] UNSPECIFIED MEDICAL IMAGING ASS 45800 DYSPHAGIA 04-19-2010 [facility] ORAL PHASE [facility]OS[facility] INC 6278 OTHER SPEC 02-08-2010 [facility] MENOPAUSAL& MEM HOSP POSTMENOPAU INC CHRISTOPH DISORDER 13988 DISORDER OF 02-08-2010 [facility] BONE AND MEM HOSP CARTILAGE INC UNSPECIFIED V7612 OTHER 02-08-2010 [place] SCREENING MEDICAL MAMMOGRAM IMAGING ASS 27518 SENSORINEUR 12-14-2009 SHERON SHAFFER HEARING SERAFIN G LOSS BILATERAL 7804 DIZZINESS 12-14-2009 MADHURI SHAFFER GIDDINESS 23732 MEMORY LOSS 11-06-2009 [facility] INC 62739 OTHER 11-06-2009 [facility] NONSPECIFIC [facility] FINDINGS INC EXAMINATION OF BLOOD 70167 CLOSED 10-24-2009 [facility] MEDICAL FRACTURE OF SERV HEAD OF FOUNDATIO RADIUS V5489 OTHER 10-24-2009 [facility] AFTERCARE V4365 KNEE JOINT 09-13-2009 RE[facility]DO REPLACEMENT HOME MED BY [employer]. [employer] MEANS 7993 UNSPECIFIED 08-16-2009 OR MEDICAL DEBILITY SERV FOUNDATIO 9598 INJURY 08-16-2009 OR MEDICAL OTH&UNSPEC SERV OTH SPEC FOUNDATIO SITES INCL MULTIPLE V4981 ASYMPTOMATI 08-16-2009 NEURODIAGNO C STICPS POSTMENOPAU CHRISTOPH STATUS 80487 DIAB 08-10-2009 OR MEDICAL W/NEURO SERV MANIFESTS FOUNDATIO TYPE II/UNS NOT UNCNTRL 3572 POLYNEUROPA 08-10-2009 OR MEDICAL THY IN SERV DIABETES FOUNDATIO V5419 AFTERCARE 08-10-2009 OR MEDICAL HEALING SERV TRAUMATIC FOUNDATIO FRACTURE OTHER BONE 91029 MORBID 07-06-2009 [facility] 7292 UNSPECIFIED 07-06-2009 [facility] NEURALGIA [facility] NEURITIS [facility] AND RADICULITIS 36713 CLOSED 07-06-2009 [facility] UNSPECIFIED INTERNAL CONDYLE MEDICINE HUMERUS 8246 CLOSED 07-06-2009 [facility] TRIMALLEOLA [facility] R FRACTURE INTERNAL MEDICINE V1588 PERSONAL 07-06-2009 [facility] V5411 AFTERCARE 07-06-2009 [facility] TRA[facility]IC [facility] FRACTURE UPPER ARM V5412 AFTERCARE 07-06-2009 [facility] TRAUM[facility]IC [facility] FRACTURE LOWER ARM V5789 OTHER 07-06-2009 [facility] SPECIFIED [facility]IL[facility]AT H[facility] ION PROCEDURE OTHER V854 BODY MASS 07-06-2009 [facility] INDEX 40 [facility] ADULT V7281 PRE-OPERATI 06-29-2009 [facility] CARDIOVASCU INTERNAL LAR MEDICINE EXAMINATION 69310 CLOSED 06-28-2009 [place] MEDICAL FRACTURE OF SERV [...] MEDICAL ADJUSTMENT SERV OF FOUNDATIO ORTHOPEDIC DEVICE 94092 COR 05-22-2009 [facility] UNSPEC HOSPITAL TYPE VESSEL PROF SERV TUNTUTULIAK/SANTOS T 11718 OTHER 05-15-2009 [facility] DYSRHYTHMIA PROF SERV S 98233 OTH 04-24-2009 [facility] EXTRAPYRAMI [facility] MADDIE INTERNAL DZ&ABNORM MED MOVMNT DISORDER 3569 UNSPEC 04-24-2009 [facility] HEREDIT&IDI [facility] OPATHIC INTERNAL PERIPHERAL MED NEUROPATHY 7011 ACQUIRED 02-20-2009 [facility] KERATODERMA [facility] INTERNAL MED 14653 UNSPECIFIED 02-20-2009 [facility] URINARY [facility] INCONTINENC INTERNAL E MED V1589 OTH SPEC 10-13-2008 [facility] PRES[facility] HEALTH OT V7611 SCREENING 10-13-2008 [facility] PATIENT 6101 DIFFUSE 09-21-2008 [facility] CYSTIC [facility] MASTOPATHY INTERNAL MED 89761 GANGLION OF 09-21-2008 [facility] [place] [facility] SHEATH INTERNAL MED 31601 MICROSCOPIC 08-11-2008 [facility] 3559 MONONEURITI 08-09-2008 [facility] S OF [facility] UNSPECIFIED INTERNAL SITE MED 496 CHRONIC 05-31-[address] [facility] [address] [facility] OBSTRUCTION INTERNAL NEC MED 13743 UNSPECIFIED 05-31-2008 [facility] CONSTIPATIO INTERNAL N MED 14689 DEHYDRATION 03-09-2008 [facility] INTERNAL MED 5589 OTH&UNSPEC 03-09-2008 [facility] NONINFECTIO [facility] US INTERNAL GASTROENTER MED ITIS&COLITI S 46501 NAUSEA WITH 03-08-2008 [facility] 04749 DIARRHEA 03-08-[address] [facility] 13512 UNSPECIFIED 01-19-2008 [facility] ARTHROPATHY INTERNAL MULTIPLE MED SITES 75809 OBSTRUCTIVE 01-15-2008 [facility] [place] 34022 HYPERSOMNIA 12-07-2007 [facility] WITH SLEEP MEM HOSP APNEA INC UNSPECIFIED 6256 FEMALE 11-23-2007 [facility] V5869 LONG-TERM 11-20-2007 [facility] (CURRENT) [facility] USE OF HOSPITAL OTHER PROF SERV MEDICATIONS 29432 UNSPECIFIED 11-03-2007 [facility] RESPIRATORY INTERNAL MED ABNORMALITY 44127 OTHER 11-03-2007 [facility] DYSPNEA AND [place] [address] DIAB W/O 09-17-2007 [facility] MENTION [facility] COMP TYPE INTERNAL II/UNS TYPE MED UNCNTRL 05531 INTRINSIC 09-15-2007 [facility] Medications Na ND Rx Da Fi Fi Am Da Di Ph RX Ph St me C No te ll ll ou ys ag ar # ys at rm s nt no ma ic us Or Da si cy ia de te s n re d CL 00 09 10 1 60 30 KR 45 MC Ac ON -0 -2 .0 OG 77 KE ti AZ 30 1 7- ER 19 KS ve EP 83 20 20 5 E AM 30 11 11 PH JR 1 5 AR MA WI MG CY LL # IA TA M BL 24 F ET 70 9 CL 00 09 09 1 60 30 KR 45 MC Ac ON -0 -0 .0 OG 77 KE ti AZ 30 1- - ER 19 KS ve EP 83 20 20 5 E [...] AZ 50 3- 3- 00 D 14 KS ve EP 09 20 20 HO E AM 79 10 10 ME JR 1 6 CA RE WI MG LL PH IA DI AR M S MA F TA CY BL # ET 1 CL 00 08 11 1 30 30 AM 81 MC Ac ON 55 -0 -1 .0 ME 32 KE ti AZ 50 3- 0- 00 D 14 KS ve EP 09 20 20 HO E AM 79 10 10 ME JR 1 6 CA RE WI MG LL PH IA DI AR M S MA F TA CY BL # ET 1 CL 00 08 10 1 30 30 AM 81 MC Ac ON 55 -0 -1 .0 ME 32 KE ti AZ 50 3- 3- 00 D 14 KS ve EP 09 20 20 HO E AM 79 10 10 ME JR 1 6 CA RE WI MG LL PH IA DI AR M S MA F TA CY BL # ET 1 CL 00 08 09 1 30 30 AM 81 MC Ac ON 55 -0 -1 .0 ME 32 KE ti AZ 50 3- 3- 00 D 14 KS ve EP 09 20 20 HO E AM 79 10 10 ME JR 1 6 CA RE WI MG LL PH IA DI AR M S MA F TA CY BL # ET 1 CL 00 08 08 1 30 30 AM 81 MC Ac ON 55 -0 -1 .0 ME 32 KE ti [place] 50 3- 6- 00 D 14 KS ve EP 09 20 20 HO E [...] Procedure DOS Code Location Performer Comment ECG 68118 [facility] IBANEZ ROUTINE 7 [facility] ECG INC INC W/LEAST 12 LDS TRCG ONLY W/O I&R ECG 11727 [facility] DAREN ROUTINE 7 PHYSICIAN ECG S GROUP W/LEAST 12 LDS I&R ONLY CV STRS 76735 [facility] IBANEZ TST 7 MEM HOS[facility] XERS&/OR INC INC RX CONT ECG TRCG ONLY MYOCARDIA 36727 [facility] IBANEZ L SPECT 7 MEM [facility]OS[facility] MULTIPLE INC INC STUDIES ECG 25684 [facility] ROUTINE 7 [facility] ECG INC INC W/LEAST 12 LDS TRCG ONLY W/O I&R ECG 20131 [facility] ROUTINE 7 PHYSICIAN ECG S GROUP W/LEAST 12 LDS I&R ONLY ECHO 91776 [facility] IBANEZ TTHRC R-T 7 [facility] 2D INC INC W/WOM-MOD E COMPL SPEC&COLR D DUPLEX 44667 [facility] SCAN 7 MEDICAL EXTRACRAN IMAGING IAL ART ASS COMPL BI STUDY ECG 05442 [facility] ROUTINE 7 PHYSICIAN ECG S GROUP W/LEAST 12 LDS I&R ONLY ECG 95635 [facility] ROUTINE 7 [facility] ECG INC INC W/LEAST 12 LDS TRCG ONLY W/O I&R RADEX 17825 [place] [facility] ESOPHAGUS 7 MEDICAL IMAGING ASS BASIC 42830 COMBINED COMBINED METABOLIC 7 PHYSICIAN PHYSICIAN PANEL S LA S LA CALCIUM TOTAL COMPREHEN 40121 COMBINED COMBINED SIVE 6 PHYSICIAN PHYSICIAN METABOLIC S LA S LA PANEL LIPID 88039 COMBINED COMBINED PANEL 6 PHYSICIAN PHYSICIAN S LA S LA HEMOGLOBI 60833 COMBINED COMBINED N 6 PHYSICIAN PHYSICIAN GLYCOSYLA S LA S LA CAMILA A1C BLOOD 84431 COMBINED COMBINED COUNT 6 PHYSICIAN PHYSICIAN COMPLETE S LA S LA AUTO&AUTO DIFRNTL WBC ECHO 11735 [facility]AR TTHRC R-T 6 [facility] 2D INC INC W/WOM-MOD E COMPL SPEC&COLR D COMPREHEN 07272 [facility] SIVE 6 [facility] METABOLIC INC INC PANEL HEMOGLOBI 17104 [facility] N 6 [facility] GLYCOSYLA INC INC CAMILA A1C LIPID 29744 [facility] PANEL 6 [facility] INC INC RADIOLOGI 21104 [facility] C EXAM 6 [facility] CHEST 2 INC INC VIEWS FRONTAL&L ATERAL RADIOLOGI 46853 [place] [facility] ALL C 6 MEDICAL EXAMINATI IMAGING ON CHEST ASS [place] FRONTAL BLOOD 75258 [facility]ANE[facility] COUNT 6 [facility] COMPLETE INC INC AUTO&AUTO DIFRNTL WBC COLLECTIO 77442 [facility] N VENOUS 6 [facility] BLOOD INC INC VENIPUNCT URE COMPRE 76782 EAR, NOSE SHASHY AUDIOMETR 5 AND SANDOVAL Y THROAT THRESHOLD SPECIAL EVAL SP RECOGNIJ APPL 58888 [facility] IBANE[facility] MODALITY 5 [facility] 1/> AREAS INC INC IONTOPHOR ESIS EA 15 MIN APPL 98688 [facility] IBANE[facility] MODALITY 5 [facility] 1/> AREAS INC INC ULTRASOUN D EA 15 MIN APPL 65058 [facility] IBANEZ MODALITY 5 [facility] 1/> AREAS INC INC ULTRASOUN D EA 15 MIN APPL 57346 [facility] IBANEZ MODALITY 5 [facility] 1/> AREAS INC INC IONTOPHOR ESIS EA 15 MIN APPL 75768 [facility] IBANEZ MODALITY 5 [facility] 1/> AREAS INC INC IONTOPHOR ESIS EA 15 MIN APPL 60403 [facility] IBANE[facility] MODALITY 5 [facility] 1/> AREAS INC INC ULTRASOUN D EA 15 MIN MANUAL 72328 [facility] IBANE[facility] THERAPY 5 [facility] TQS 1/> INC INC REGIONS EACH 15 MINUTES APPL 89640 SHAMAR IBANEZ [facility]ALITY 5 [facility]/> AREAS INC INC IONTOPHOR ESIS EA 15 MIN APPL 56455 SHAMAR IBANEZ MODALITY 5 [facility]/> AREAS INC INC ULTRASOUN D EA 15 MIN APPL 93088 SHAMAR IBANEZ MODALITY 5 [facility] 1/> AREAS INC INC ULTRASOUN D EA 15 MIN APPL 75626 SHAMAR IBANEZ MODALITY 5 [facility] 1/> AREAS INC INC IONTOPHOR ESIS EA 15 MIN PHYSICAL 92635 SHAMRA IBANEZ THERAPY 5 [facility] EVALUATIO INC INC N DAY CARE S5100 SHAMAR IBANEZ SERVICES [address] [place] [address] ADULT; ELDER ELDER PER 15 CARE CARE MINUTES DAY CARE S5100 SHAMAR IBANEZ SERVICES [address] [place] [address] ADULT; ELDER ELDER PER 15 CARE CARE MINUTES DAY CARE S5100 SHAMAR IBANEZ SERVICES [address] [place] [address] ADULT; ELDER ELDER PER 15 CARE CARE MINUTES NON-INVAS 24735 [place] LEN[place] DANIELLE 5 MEDICAL [place] PHYSIOLOG IMAGING IC STUDY ASS EXTREMITY 3 LEVLS DAY CARE S5100 SHAMAR IBANEZ SERVICES [address] [place] [address] ADULT; ELDER ELDER PER 15 CARE CARE MINUTES DAY CARE S5100 SHAMAR IBANEZ [address] ADULT; ELDER ELDER PER 15 CARE CARE MINUTES DAY CARE S5100 SHAMAR IBANEZ [address] ADULT; ELDER ELDER PER 15 CARE CARE MINUTES MRI 28528 [place] ROBERT SPINAL 5 [facility] [place] CANAL IMAGING LUMBAR ASS W/O CONTRAST MATERIAL DAY CARE S5100 SHAMAR IBANEZ [address] ADULT; ELDER ELDER PER 15 CARE CARE MINUTES DAY CARE S5100 SHAMAR IBANEZ [address] ADULT; ELDER ELDER PER 15 [place] [address] SHAMAR IBANEZ INFUSION 5 [facility] THERAPY/P INC INC ROPHYLAXI S /DX 1ST TO 1 HR DAY CARE S5100 SHAMAR IBANEZ SERVICES [address] [place] [address] ADULT; ELDER ELDER PER 15 CARE CARE MINUTES APPL 44095 SHAMAR IBANEZ MODALITY 5 [facility] 1/> AREAS INC INC ULTRASOUN D EA 15 MIN E-STIM G0283 SHAMAR IBANEZ 1/> AREAS 5 [facility] OTH THAN INC INC WND CARE PART TX PLAN E-STIM G0283 SHAMAR IBANEZ 1/> AREAS 5 [facility]OS[facility] OTH THAN INC INC WND CARE PART TX PLAN APPL 06613 SHAMAR IBANEZ MODALITY 5 [facility] 1/> AREAS INC INC ULTRASOUN D EA 15 MIN APPL 16742 SHAMAR IBANEZ MODALITY 5 [facility] 1/> AREAS INC INC ULTRASOUN D EA 15 MIN E-STIM G0283 SHAMAR IBANEZ 1/> AREAS 5 [facility]OS[facility] OTH THAN INC INC WND CARE PART TX PLAN E-STIM G0283 SHAMAR SHAMAR 1/> AREAS 5 [facility]OS[facility] OTH THAN INC INC WND CARE PART TX PLAN APPL 28172 SHAMAR IBANEZ MODALITY 5 [facility] 1/> AREAS INC INC ULTRASOUN D EA 15 MIN RADEX 79619 CODY JONES FOOT 5 [facility] [place] COMPLETE IMAGING MINIMUM 3 ASS VIEWS APPL 25576 SHAMAR IBANEZ MODALITY 5 [facility] 1/> AREAS INC INC ULTRASOUN D EA 15 MIN E-STIM G0283 SHAMAR FRENCHON 1/> AREAS 5 [facility]OS[facility] OTH THAN INC INC WND CARE PART TX PLAN E-STIM G0283 SHAMAR IBANEZ 1/> AREAS 5 [facility]OSP OTH THAN INC INC WND CARE PART TX PLAN APPL 15214 SHAMAR IBANEZ MODALITY 5 [facility] 1/> AREAS INC INC ULTRASOUN D EA 15 MIN PHYSICAL 11214 SHAMAR IBANEZ THERAPY 5 [facility] EVALUATIO INC INC N HIGH K0004 J & L J & L STRENGTH 4 HOME [facility] 21798 SHAMAR IBANEZ THERAPY 4 [facility] EVALUATIO INC INC N APPL 10399 SHAMAR IBANEZ MODALITY 4 [facility] 1/> AREAS INC INC IONTOPHOR ESIS EA 15 MIN E-STIM G0283 SHAMAR IBANEZ 1/> AREAS 4 [facility]OS[facility] OTH THAN INC INC WND CARE PART TX PLAN HIGH K0004 J & L J & [...] MEDICAL HT EQUIPMENT EQUIPMENT WHEELCHAI R RADEX 19777 ROSALIE MAT ROSALIE MAT ANKLE 4 COMPLETE MINIMUM 3 VIEWS NONEMERG A0120 BLUE BLUEGRASS TRNSPRT: 4 [facility] [employer] [facility] AREA/OT SYS HIGH K0004 J & L J & L STRENGTH 4 HOME HOME [facility] EQUIPMENT [place]QUIPMENT [place] FLX 56122 GASTROENT CASE JUS W/RMVL 4 EROLOGY OF TUMOR AND POLYP HEPATOL LESION SNARE TQ NONEMERG A0120 BLUE SITA TRNSPRT: 4 [facility] ARE[facility] K0004 J & L J & L STRENGTH 4 HOME [facility] EQUIPMENT EQUIPMENT WHEELCHAI R RADEX 18144 [facility] ANKLE 4 N N COMPLETE [facility] COMMUNITY MINIMUM 3 HOSPITA HOSPITA VIEWS RADEX 23863 [facility] ANKLE 4 N N COMPLETE [facility] MINIMUM 3 HOSPITA HOSPITA VIEWS RADEX 37162 GILBERTO GILBERTO ANKLE 4 RHO RHO COMPLETE MINIMUM 3 VIEWS LCHAIR E0978 J & L J & L ACSS PSTN 3 HOME HOME MEDICAL MEDICAL BELT/SFTY EQUIPMENT EQUIPMENT BELT/PELV STRAP EA RADEX 86872 [facility] ANKLE 3 N N COMPLETE [facility] MINIMUM 3 HOSPITA HOSPITA VIEWS VISUAL 13380 VAL NEAL FIELD XM 3 N ALEXANDER N ALEXANDER UNI/BI W/INTERP EXTENDED EXAM DETERMINA 05581 VAL PALUMBOSO TION 3 N ALEXANDER N ALEXANDER REFRACTIV E STATE EGD 26544 BENÍTEZ- BENÍTEZ- TRANSORAL 3 JULIET JULIET BIOPSY EVELIN EVELIN [place]ING[place] [address] LETICIA ALEIDA LETICIA ALEIDA SURG 3 PATHOLOGY GROSS&BISHOP ROSCOPIC EXAM E-STIM G0283 [facility] 1/> AREAS 3 N N OTH THAN [facility] WND CARE HOSPITA HOSPITA PART TX PLAN THERAPEUT 83102 [facility] IC PX 1/> 3 N N [facility] EACH 15 HOSPITA HOSPITA MIN EXERCISES INJECTION J1040 [place] 3 PRASHANT PRASHANT METHYLPRE DNISOLONE ACETATE 80 MG THERAPEUT 79165 [facility] IC PX 1/> 3 N N [facility] EACH 15 HOSPITA HOSPITA MIN EXERCISES E-STIM G0283 [facility] 1/> AREAS 3 N N OTH THAN [facility] WND CARE HOSPITA HOSPITA PART TX PLAN INJ J2930 [employer], [employer], METHYLPRD 3 BILINGUAL MEDICAL ASSISTANT BILINGUAL MEDICAL ASSISTANT NISOLONE JAMEL JAMEL SODIUM CO HOS CO HOS SUCCNAT TO 125 MG INJECTION J1200 [employer], [employer], 3 BILINGUAL MEDICAL ASSISTANT BILINGUAL MEDICAL ASSISTANT DIPHENHYD JAMEL JAMEL RAMINE CO HOS CO HOS HCL UP TO 50 MG THERAPEUT 76310 [facility] IC PX 1/> 3 N N [facility] EACH 15 HOSPITA HOSPITA MIN EXERCISES THERAPEUT 29994 [facility] IC PX 1/> 3 N N [facility] EACH 15 HOSPITA HOSPITA MIN EXERCISES PHYSICAL 75938 [facility] THERAPY 3 N N EVALUATIO [facility] N HOSPITA HOSPITA E-STIM G0283 [facility] 1/> AREAS 3 N N OTH THAN [facility] WND CARE HOSPITA HOSPITA PART TX PLAN MRA NECK 76387 ROSALIE MAT ROSALIE MAT W/O 2 CONTRST MATERIAL MRI BRAIN 86717 [facility] BRAIN 2 N N STEM W/O COMM[facility]ITY [facility] CONTRAST HOSPITA HOSPITA MATERIAL DUPLEX 62266 ROSALIE MAT ROSALIE MAT SCAN 2 EXTRACRAN IAL ART COMPL BI STUDY RADEX 61842 MAKSIM SCHAEFFER SHOULDER 2 KARIN KARIN COMPLETE MINIMUM 2 VIEWS NONEMERG A0120 BLUE BLUE TRNSPRT: 2 [facility] ACTION ACTION AREA/OTH SYS RADEX 80936 MAKSIM SCHAEFFER SHOULDER 2 KARIN KARIN COMPLETE MINIMUM 2 VIEWS RADEX 49090 MAKSIM SCHAEFFER SHOULDER 2 KARIN KARIN COMPLETE MINIMUM 2 VIEWS RADEX 96094 MAKSIM SCHAEFFER SHOULDER 2 KARIN KARIN COMPLETE MINIMUM 2 VIEWS RADEX 09524 MAKSIM SCHAEFFER ELBOW 2 2 KARIN KARIN VIEWS RADEX 84010 MAKSIM SCHAEFFER HAND 2 KARIN KARIN MINIMUM 3 VIEWS RADEX 63346 [facility] HUMERUS 2 N N MINIMUM 2 [facility] VIEWS HOSPITA HOSPITA NONEMERG A0120 BLUE BLUE TRNSPRT: 2 [facility] ACTION AREA/OTH SYS RADEX 36059 [facility] SHOULDER 2 N N COMPLETE [facility] MINIMUM 2 HOSPITA HOSPITA VIEWS RADEX 53030 [facility] CLAVICLE 2 N N COMPLETE [facility] HOSPITA HOSPITA NONCOVERE A9270 [facility] D ITEM OR 2 N N SERVICE [facility] HOSPITA HOSPITA ECG 87734 ALICIA VARGAS ROUTINE 1 EMERGENCY EMERGENCY ECG SERVICES SERVICES W/LEAST 12 LDS I&R ONLY CRITICAL 16010 ALICIA MOORE BAB CARE 1 EMERGENCY ILL/INJUR SERVICES ED PATIENT INIT 30-[place] [address] [facility] HEAD/BRAI 1 MEDICAL MEDICAL N W/O IMAGING IMAGING CONTRAST ASS ASS MATERIAL 3D 95383 [facility] RENDERING 1 MEDICAL MEDICAL W/INTERP IMAGING IMAGING & ASS ASS POSTPROCE SS SUPERVISI ON LIPID 27697 COMBINED COMBINED PANEL 1 PHYSICIAN PHYSICIAN S LA S LA HEMOGLOBI 92670 COMBINED COMBINED N 1 PHYSICIAN PHYSICIAN GLYCOSYLA S LA S LA CAMILA A1C COMPREHEN 52747 COMBINED COMBINED SIVE 1 PHYSICIAN PHYSICIAN METABOLIC S LA S LA PANEL BLOOD 22313 COMBINED COMBINED COUNT 1 PHYSICIAN PHYSICIAN COMPLETE S LA S LA AUTO&AUTO DIFRNTL WBC COLLECTIO 02620 COMBINED COMBINED N VENOUS 1 PHYSICIAN PHYSICIAN BLOOD S LA S LA VENIPUNCT URE 3D 69737 CODY GORDONUTCHER RENDERING 1 [facility] [place] W/INTERP IMAGING & ASS [place]PROC[place] ON 3D 68414 SHAMAR IBANEZ RENDERING 1 [facility] INC INC W/INTERP& [place] [address] CODY JONES HEAD/BRAI 1 [facility] [place] N W/O IMAGING CONTRAST ASS MATERIAL BASIC 50980 SHAMAR IBANEZ METABOLIC 1 [facility] PANEL INC INC CALCIUM TOTAL CULTURE 88361 SHAMAR IBANEZ BACTERIAL 1 [facility] INC INC QUANTTATI VE COLONY COUNT URINE CULTURE 03153 SHAMAR IBANEZ BCT 1 [facility] ISOL&PRSM INC INC PTV ID ISOLATE EA URINE URNLS DIP 27141 SHAMAR IBANEZ 1 [facility] STICK/TAB INC INC LET REAGENT AUTO MICROSCOP Y BLOOD 73310 SHAMAR IBANEZ COUNT 1 [facility] COMPLETE INC INC AUTO&AUTO DIFRNTL WBC SUSCEPTIB 43464 SHAMAR IBANEZ LTY STDY 1 [facility] ANTIMICRB INC INC IAL MICRO/AGA R DILUTJ COLLECTIO 58516 SHAMAR IBANEZ N VENOUS 1 [facility] BLOOD INC INC VENIPUNCT URE LEVEL III 55207 PATHOLOGY PATHOLOGY SURG 1 & & PATHOLOGY CYTOLOGY CYTOLOGY LAB LAB GROSS&BISHOP ROSCOPIC EXAM TX SPEECH 91149 [facility] 1 N N VOICE [facility]ICAL [facility] COMMUNITY COMMJ HOSPITA HOSPITA &/BAG PATCHER Y PROC IND TX SPEECH 47854 [facility] 1 N N VOICE COMMUNITY COMMUNITY COMMJ HOSPITA HOSPITA &/BAG PATCHER Y PROC IND TX SPEECH 75723 [facility] 1 N N VOICE [facility] COMMUNITY COMMJ HOSPITA HOSPITA &/BAG PATCHER Y [place] SPEECH 04384 [facility] 1 N N VOICE COMMUNITY COMMUNITY COMMJ HOSPITA HOSPITA &/BAG PATCHER [place] SPEECH 01567 [facility] 1 N N VOICE [facility] COMMJ HOSPITA HOSPITA &/BAG PATCHER Y [place] SPEECH 22031 [facility] 1 N N VOICE COMMUNITY COMMUNITY COMMJ HOSPITA HOSPITA &/BAG PATCHER Y [place] SPEECH 42115 [facility] 1 N N VOICE [facility] COMMJ HOSPITA HOSPITA &/BAG PATCHER Y PROC IND EVAL 75066 [facility] SPEECH 1 N N [facility] VOICE HOSPITA HOSPITA COMMUNJ &/BAG PATCHER Y PROC HOSPITAL 42602 [facility] 1 MEDICAL [place] DAY SERV MANAGEMEN FOUNDATIO T 30 MIN/< SBSQ 56920 [facility] 1 MEDICAL [place] CARE/DAY SERV 25 FOUNDATIO MINUTES SBSQ 82293 [place] [address] MEDICAL [place] CARE/DAY SERV 25 FOUNDATIO MINUTES MRA HEAD 00874 [place] W/O 1 MEDICAL EDW CONTRST SERV MATERIAL FOUNDATIO MRA NECK 72672 [place] W/O 1 MEDICAL EDW CONTRST SERV MATERIAL FOUNDATIO MRI BRAIN 00800 [place] BRAIN 1 MEDICAL EDW STEM W/O SERV CONTRAST FOUNDATIO MATERIAL RADIOLOGI 42845 [place] NICKELS C 1 MEDICAL CJ EXAMINATI SERV ON CHEST FOUNDATIO [place]ING[place] FRONTAL RADEX 17663 [place] ORBITS 1 MEDICAL EDW COMPLETE SERV MINIMUM 4 FOUNDATIO VIEWS INITIAL 55117 [facility] 1 MEDICAL [place] CARE/DAY SERV 50 FOUNDATIO MINUTES RADEX 02982 [place] ABDOMEN 1 1 MEDICAL VENICE SERV ANTEROPOS FOUNDATIO TERIOR VIEW ECHO 64206 MADDY GREGORIO EVA TTHRC R-T 1 MEDICAL 2D SERV W/WOM-MOD FOUNDATIO E COMPL SPEC&COLR D ECG [address] ROUTINE 1 MEDICAL ECG SERV W/LEAST FOUNDATIO 12 LDS I&R ONLY URNLS DIP 49924 SHAMAR IBANEZ 1 [facility] STICK/TAB INC INC [place] [address] SHAMAR IBANEZ TROPONIN 1 [facility] QUANTITAT INC INC DANIELLE COMPREHEN 02393 SHAMAR IBANEZ SIVE 1 [facility] METABOLIC INC INC PANEL CREATINE 03090 SHAMAR SHAMAR KINASE MB 1 [facility] FRACTION INC INC ONLY 3D 61477 CODY GORDONUTCHER RENDERING 1 [facility] [place] W/INTERP IMAGING & [place] [address] SHAMAR IBANEZ INFUSION 1 [facility] THERAPY/P INC INC ROPHYLAXI S /DX [address] [place] [address] CODY JONES HEAD/BRAI 1 [facility] [place] N W/O IMAGING CONTRAST ASS MATERIAL AMB A0427 [facility] SERVICE 1 AMBULANCE AMBULANCE ALS SERVICE SERVICE EMERGENCY TRANSPORT LEVEL 1 CRITICAL 64079 [facility] MED[facility] 1 EMERGENCY III ALEXANDER ILL/INJUR SERVICES ED PATIENT INIT 30-74 MIN ECG 14637 SHAMAR IBANEZ ROUTINE 1 [facility] ECG INC INC W/LEAST 12 LDS TRCG ONLY W/O I&R CREATINE 07479 SHAMAR IBANEZ KINASE 1 [facility] TOTAL INC INC GROUND A0425 [facility] MILEAGE 1 AMBULANCE AMBULANCE PER SERVICE SERVICE STATUTE MILE RADIOLOGI 50894 CODY ROBERT C 1 [facility] [place] EXAMINATI IMAGING ON CHEST ASS SINGLE VIEW FRONTAL BLOOD 72508 SHAMAR IBANEZ COUNT 1 [facility] COMPLETE INC INC AUTO&AUTO DIFRNTL WBC NONEMERG A0120 LKLP LKLP TRNSPRT: 0 COMMUNITY COMMUNITY MINI-BUS ACTION N MTN AREA/OTH SYS US SOFT 50785 CODY ROBERT TISSUE 0 [facility] [place] HEAD & IMAGING NECK REAL ASS TIME IMGE DOCM SWALLOWIN 76385 CODY ROBERT G FUNCJ 0 [facility] [place] W/CINERAD IMAGING IOGRAPY/V ASS IDRADIOG MOTION 83534 SHAMAR IBANEZ FLUOR 0 [facility] EVAL INC INC SWLNG FUNCJ C/V REC DXA BONE 55322 SHAMAR IBANEZ DENSITY 0 [facility] STUDY 1/> INC INC SITES AXIAL SKEL COMPUTER- 82394 [place] ROBERT AIDED 0 [facility] [place] DETECTION IMAGING ASS SCREENING MAMMOGRAP HY SCREENING G0202 [place] ROBERT 0 [facility] [place] MAMMOGRAP IMAGING HY ANGELICA ASS INCL CAD WHEN PERFORMD COLLECTIO 14129 SHAMAR IBANEZ N VENOUS 0 [facility] BLOOD INC INC VENIPUNCT URE CULTURE 42495 COMBINED COMBINED BACTERIAL 0 PHYSICIAN PHYSICIAN S LA S LA QUANTTATI VE COLONY COUNT URINE HEMOGLOBI 55935 SHAMAR IBANEZ N 0 [facility] GLYCOSYLA INC INC CAMILA A1C LIPID 77600 SHAMAR FRENCHON PANEL 0 [facility] INC INC COMPREHEN 18848 SHAMAR IBANEZ SIVE 0 [facility] METABOLIC INC INC PANEL LANCETS A4259 DIABETES DIABETES PER BOX 0 CARE CLUB CARE CLUB OF 100 [facility] NORMAL A4256 DIABETES DIABETES LOW AND 0 CARE CLUB CARE CLUB HIGH [facility] CALIBRATO R SOLUTION/ [facility] CENTRAL A4258 DIABETES DIABETES WERED 0 CARE CLUB CARE CLUB DEVICE [facility] FOR LANCET EACH BLD GLU A4253 DIABETES DIABETES TEST/REAG 0 CARE CLUB CARE CLUB T STRIPS [facility] HOME BLD GLU MON-50 CYANOCOBA 12943 SHAMAR IBANEZ RADHA 0 [facility] VITAMIN INC INC B-12 COMPREHEN 93012 SHAMAR IBANEZ SIVE 0 [facility] METABOLIC INC INC PANEL LIPID 05693 SHAMAR FRENCHON PANEL 0 [facility] INC INC HEMOGLOBI 47847 SHAMAR IBANEZ N 0 [facility] GLYCOSYLA INC INC CAMILA A1C COLLECTIO 98505 SHAMAR IBANEZ N VENOUS 0 [facility] BLOOD INC INC VENIPUNCT URE BLOOD 23287 SHAMAR FRENCHON COUNT 0 [facility] COMPLETE INC INC AUTO&AUTO DIFRNTL WBC SYPHILIS 11553 SHAMAR IBANEZ TEST 0 [facility] NON-TREPO INC INC NEMAL ANTIBODY QUAL RADEX 85045 [facility] ANKLE 0 Y Y [facility]PITAL HOSPITAL MINIMUM 3 VIEWS URNLS DIP 20556 COMBINED COMBINED 0 PHYSICIAN PHYSICIAN STICK/TAB S LAB S LAB LET REAGENT AUTO MICROSCOP Y LANCETS A4259 AM MED AM MED PER BOX 0 DIRECT DIRECT OF 100 [facility] NORMAL A4256 AM MED AM MED LOW AND 0 DIRECT DIRECT HIGH [facility] R SOLUTION/ CHIPS BLD GLU A4253 AM MED AM MED TEST/REAG 0 DIRECT DIRECT T STRIPS [facility] HOME BLD PHARMACY PHARMACY GLU MON-50 COMMODE E0163 REGINALDO HAIR CHAIR 0 HOME MED HOME MED MOBILE OR EQUIP. EQUIP. [facility] STATIONAR Y W/FIXED ARMS APPLICATI 89172 MADDY LIND JR, ON SHORT 0 MEDICAL D D LEG CAST SERV BELOW FOUNDATIO KNEE-TOE RADEX 89948 [facility] ANKLE 0 Y Y COMPLETE HOSPITAL HOSPITAL MINIMUM 3 VIEWS CAST Q4037 MADDY LIND JR, SUPPLIES 0 MEDICAL D D SHORT LEG SERV CAST FOUNDATIO ADULT PLASTER DXA BONE 25638 NEURODIAG LUTZ, DENSITY 0 NOSTICPSC YFN B STUDY 1/> SITES AXIAL SKEL PHYS CERT G0180 MADDY COBOS, MCR-COVR 0 MEDICAL OCTAVIANO S [facility] SERV SRVC PER FOUNDATIO CERT PRD RADEX 83378 [facility] ELBOW 0 Y Y COMPLETE HOSPITAL HOSPITAL MINIMUM 3 VIEWS HOSPITAL 44740 MADDY COBOS, DISCHARGE 0 MEDICAL OCTAVIANO S DAY SERV MANAGEMEN FOUNDATIO T 30 MIN/< SBSQ 00507 [facility] HOSPITAL 0 MEDICAL OCTAVIANO S CARE/DAY SERV 25 FOUNDATIO MINUTES SBSQ 95160 [facility] 0 MEDICAL OCTAVIANO S CARE/DAY SERV 25 FOUNDATIO MINUTES SBSQ 71708 MADDY [facility] 0 MEDICAL OCTAVIANO S CARE/DAY SERV 25 FOUNDATIO MINUTES SBSQ 27026 MADDY [facility] 0 MEDICAL VALE J CARE/DAY SERV 25 FOUNDATIO MINUTES SBSQ 45036 [facility] 0 MEDICAL VALE J CARE/DAY SERV 25 FOUNDATIO MINUTES SBSQ 62026 [facility] 0 MEDICAL VALE J CARE/DAY SERV 25 FOUNDATIO MINUTES SBSQ 37262 [facility] 0 MEDICAL OCTAVIANO S CARE/DAY SERV 25 FOUNDATIO MINUTES INITIAL 73524 [facility] 0 MEDICAL OCTAVIANO S CARE/DAY SERV 70 FOUNDATIO MINUTES HOSPITAL 96734 [facility], DISCHARGE 0 Y OF [facility] E MANAGEMEN INTERNAL T 30 MEDICINE MIN/< SBSQ 00999 [facility] 0 Y OF [facility] E 25 INTERNAL MINUTES MEDICINE SBSQ [address] [facility] 0 Y OF [facility]DAY [place] 25 INTERNAL MINUTES MEDICINE SBSQ [address] [facility] 0 Y [facility]/DAY [place] 25 INTERNAL MINUTES MEDICINE SBSQ [address] [facility] 0 Y OF [facility]/DAY [place] 25 INTERNAL MINUTES [facility] [address] [facility] 0 Y OF [facility] CARE/DAY [place] 25 INTERNAL MINUTES MEDICINE SBSQ [address] [facility] 0 Y OF [facility]/DAY [place] 25 INTERNAL MINUTES MEDICINE RADEX 30574 [place], ANKLE 0 MEDICAL MAEGAN Granda COMPLETE SERV MINIMUM 3 FOUNDATIO VIEWS INITIAL [address] [facility] 0 Y OF CHERYLE M CARE/DAY [place] 50 INTERNAL MINUTES MEDICINE RADEX 82832 [place], ELBOW 0 MEDICAL MAEGAN N COMPLETE SERV MINIMUM 3 FOUNDATIO VIEWS ROTARY A0436 PETROLEUM PETROLEUM WING AIR 0 MILEAGE HELICOPTE HELICOPTE PER RS INC RS INC STATUTE MILE MODERATE 29255 [place] JENNIFER, SEDATJ 0 MEDICAL BARBI C DIFF SERV PHYS/QHP FOUNDATIO 5/>YRS INIT 30 MIN AMB A0431 PETROLEUM PETROLEUM SERVICE 0 CONVNTION HELICOPTE HELICOPTE AIR SRVC RS INC RS INC TRANSPORT [address] RADEX 33858 [place], ANKLE 0 MEDICAL MAEGAN N COMPLETE SERV MINIMUM 3 FOUNDATIO VIEWS RADEX 68012 [place], FOOT 0 MEDICAL MAEGAN N COMPLETE SERV MINIMUM 3 FOUNDATIO VIEWS RADIOLOGI 26736 [place], C 0 MEDICAL MAEGAN N EXAMINATI SERV ON PELVIS FOUNDATIO 1/2 VIEWS RADIOLOGI 14863 [place], C 0 MEDICAL MAEGAN N EXAMINATI SERV ON TIBIA FOUNDATIO & FIBULA 2 VIEWS ECG 70448 Aguila VILLEDA ROUTINE 0 MEDICAL ECG SERV W/LEAST FOUNDATIO 12 LDS I&R ONLY ECHO 54151 SHAMAR HUNTER TTHRC R-T [address] W/WOM-MOD PROF SERV E COMPL SPEC&COLR D NON-INVAS 05730 [place] DANIELLE JONES 9 MEDICAL [place] PHYSIOLOG IMAGING IC STUDY ASSOCIATE EXTREMITY S 3 LEVLS ECG 34064 SHAMAR HUNTER ROUTINE 9 [facility] W/LEAST PROF SERV 12 LDS I&R ONLY ECG 13312 SHAMAR IBANEZ ROUTINE 9 [facility] ECG INC INC W/LEAST 12 LDS TRCG ONLY W/O I&R SEAT E0156 REGINALDO HAIR ATTACHMEN 9 HOME MED HOME MED T [facility] [employer] WALKER E0143 [place] HAIR FOLDING 9 HOME MED HOME MED WHEELED EQUIP. EQUIP. ADJUSTABL [facility] E/FIXED HEIGHT NORMAL A4256 AM MED AM MED LOW AND 9 DIRECT DIRECT HIGH [facility] PHARMACY R SOLUTION/ [place] LANCETS A4259 AM MED AM MED PER BOX 9 DIRECT DIRECT OF 100 [facility] PHARMACY PHARMACY BLD GLU A4253 AM MED AM MED TEST/REAG 9 DIRECT DIRECT T STRIPS [facility] HOME D PHARMACY PHARMACY GLU MON-50 RADEX 25409 [place] SYCAMORE ANKLE [address] [place] [address] COMPLETE CENTER CENTER MINIMUM 3 VIEWS APPLICATI 72355 [place] SYCAMORE ON SHORT [address] [place] [address] LEG CENTER CENTER SPLINT CALF FOOT LANCETS A4259 AM MED AM MED PER BOX 9 DIRECT DIRECT OF 100 LLC LLC PHARMACY PHARMACY NORMAL A4256 AM MED AM MED LOW AND 9 DIRECT DIRECT HIGH [facility] PHARMACY R SOLUTION/ [facility]IPS BLD GLU A4253 AM MED AM MED TEST/REAG 9 DIRECT DIRECT T STRIPS [facility] HOME BLD PHARMACY PHARMACY GLU FRI- SCREENING 43558 DENNISSHERRELL HOPKINS, 9 [place] S MAMMOGRAP RADIOLOGY HY BILATERAL ASSOCIATE S PSC BLD GLU A4253 AM MED AM MED TEST/REAG 9 DIRECT DIRECT T [facility] HOME BLD PHARMACY PHARMACY GLU LANCETS A4259 AM MED AM MED PER BOX 9 DIRECT DIRECT OF 100 [facility] PHARMACY PHARMACY NORMAL A4256 AM MED AM MED LOW AND 9 DIRECT DIRECT [facility] PHARMACY R SOLUTION/ [facility] MEDICAL 35139 SHAMAR IBANEZ NUTRITION 9 [facility] INC ASSMT&IVN TJ INDIV EACH 15 [place] CYANOCOBA 69019 JAMEL MCCULLOUGH RADHA 9 CO CO VITAMIN [facility] B-12 COMPREHEN 16357 JAMEL MCCULLOUGH SIVE 9 CO CO METABOLIC [facility] [place] [address] JAMEL MCCULLOUGH FOLIC 9 CO CO ACID [facility] SERUM COLLECTIO 48743 JAMEL Granda VENOUS 9 CO CO BLOOD [facility] VENIPUNCT URE LIPID 24078 JAMEL MCCULLOUGH PANEL 9 CO CO [facility] BLOOD 07736 JAMEL MCDANIEL 9 CO CO SMEAR [facility] MCRSCP W/MNL DIFRNTL WBC COUNT HEMOGLOBI 16367 JAMEL MCCULLOUGH N 9 CO CO GLYCOSYLA [facility] CAMILA A1C BLOOD 87316 JAMEL MCCULLOUGH COUNT 9 CO CO COMPLETE [facility] AUTO&[place] [address] JAMEL MCCULLOUGH THYROID 9 CO CO [facility] NG HORMONE TSH LANCETS A4259 AM MED AM MED PER BOX 9 DIRECT DIRECT OF 100 [facility] PHARMACY PHARMACY BLD GLU A4253 AM MED AM MED TEST/REAG 9 DIRECT DIRECT T STRIPS [facility] HOME D PHARMACY PHARMACY GLU 50 URNLS DIP 58894 [place] KEY[place]NA, 8 [place] ANA A STICK/TAB INTERNAL LET RGNT MED NON-AUTO W/O MICRSCP LANCETS A4259 AM MED AM MED PER BOX 8 DIRECT DIRECT OF 100 [facility] PHARMACY PHARMACY BLD GLU A4253 AM MED AM MED TEST/REAG 8 DIRECT DIRECT T STRIPS [facility] HOME [facility] PHARMACY PHARMACY GLU OBSERVATI 46260 [place] KEY[place]NA, ON CARE 8 [place] ANA A DISCHARGE INTERNAL MED MANAGEMEN T GROUND A0425 [facility] MILEAGE 8 [facility] STATUTE MILE INITIAL 40719 [place] MCKEMIE OBSERVATI 8 [facility] INTERNAL NATHAN F CARE/DAY MED 30 MINUTES AMB A0427 [facility] SERVICE 8 [facility] EMERGENC[facility] TRANSPORT LEVEL 1 BLD GLU [id number] AM MED AM MED TEST/REAG 8 DIRECT DIRECT T STRIPS [facility] HOME D PHARMACY PHARMACY GLU LANCETS A4259 AM MED AM MED PER BOX 8 DIRECT DIRECT OF 100 [facility] PHARMACY PHARMACY POLYSOM 88510 NEW DEBBI, 6/>YRS 8 PRASANTH Castillo SLEEP 4/> CLINIC ADDL PSC BUCKY ATTND ANES 80725 [facility] ANESTH NATHAN Castillo TONEAL OF THE LWR ABD BLUEGRASS W/URINARY TRACT NOS REPAIR C1771 [facility] IBANE[facility] DEVICE 8 [facility] URINARY INC INC INCONTINE NCE W/[place] [address]779 SH[facility] IBANEZ THER 8 [facility] PROPH/DX INC INC 1ST >1 HR THER 32975 SHAMAR IBANEZ PROPH/DX 8 [facility] NJX EA INC INC SEQL IV PUSH SBST/DRUG GLUC BLD 33007 SHAMAR IBANEZ GLUC MNTR 8 [facility] DEV INC INC CLEARED FDA SPEC HOME USE CULTURE 78462 SHAMAR IBANEZ BACTERIAL 8 [facility] INC INC QUANTTATI VE COLONY COUNT URINE URNLS DIP 51455 [facility] IBANEZ 8 [facility] STICK/TAB INC INC LET REAGENT AUTO MICROSCOP Y IV NFUS 81103 SHAMAR IBANEZ THER 8 [facility] PROPH/DX INC INC EA HR SLING 06390 SHAMAR IBANEZ OPERATION 8 [facility] STRESS INC INC INCONTINE NCE COLLECTIO 88833 SHAMAR IBANEZ N VENOUS 8 [facility] BLOOD INC INC VENIPUNCT URE ECG 34380 SHAMAR MCKEMIE ROUTINE 8 [facility] W/LEAST PROF SERV 12 LDS I&R ONLY BLOOD 35801 SHAMAR IBANEZ COUNT 8 [facility] COMPLETE INC INC AUTO&AUTO DIFRNTL WBC BASIC 52414 SHAMAR IBANEZ METABOLIC 8 [facility] PANEL INC INC CALCIUM TOTAL ECG 15469 SHAMAR IBANEZ ROUTINE 8 [facility] ECG INC INC W/LEAST 12 LDS TRCG ONLY W/O I&R COMPLEX 07105 [facility] UROFLOMET 8 [facility] [place] [facility] BLADDER 56445 [facility], PRESSURE 8 [facility] MEASUREME [facility] NT DURING FILLING [place] [facility] URTL 64876 [facility], PRESS 8 [facility] PROFILE [facility] OF STDS [place] [facility] VOIDING 60501 [facility] PRESS 8 [facility] STDS BLDR CLINIC OF VOIDING PRESS ANY [place] [facility] VOID 26465 [facility], PRESSURE 8 [facility] STUDIES [facility] [place] [facility] LANCETS A4259 AM MED AM MED PER BOX 8 DIRECT DIRECT OF 100 [facility] PHARMACY PHARMACY BLD GLU A4253 AM MED AM MED TEST/REAG 8 DIRECT DIRECT [employer] HOME BLD PHARMACY PHARMACY GLU FRI-50 PHYS CERT G0180 [place] [facility] MCR-COVR 8 [facility], [facility] INTERNAL NATHAN F SRVC PER MED CERT PRD BLD GLU A4253 AM MED AM MED TEST/REAG 8 DIRECT DIRECT [facility] [employer] [employer] [facility] HOME BLD PHARMACY PHARMACY GLU FRI-50 LANCETS A4259 AM MED AM MED PER BOX 8 DIRECT DIRECT OF 100 [facility] PHARMACY PHARMACY Encounters Encounter Start End Date Code Location Performer Type Date [facility] - 7 7 [facility] OUTPATIEN INC T OFFICE 50054 [facility] OUTPATIEN 7 7 PHYSICIAN T VISIT S GROUP 25 MINUTES [facility] - 7 7 [facility] T OFFICE 64222 [facility] OUTPATI[facility] 7 7 PHYSICIAN T VISIT S GROUP 40 MINUTES [facility] - 7 7 [facility]PAT[facility]EN INC [facility] SH[facility] - 7 7 [facility] INC [facility] - 7 7 [facility] INC T OFFICE 25380 [facility] OUTPATI[facility] 7 7 PHYSICIAN T VISIT S GROUP 40 MINUTES [facility] - 7 7 [facility] T OFFICE 30832 [facility] OUTPATI[facility] 7 7 PHYSICIAN T VISIT S GROUP 15 MINUTES [facility] - 7 7 [facility] OUTPATIEN INC T OFFICE 49598 [facility] TRU[facility] OUTPATIEN 7 7 PHYSICIAN T NEW 20 S GROUP MINUTES [facility]OSP[facility] - 6 6 [facility]PAT[facility] INC [facility] SH[facility] - 6 6 [facility] OUTPATIEN INC T OFFICE 13757 [place] [facility] PHI OUTPATIEN 5 5 MEDICAL T NEW 30 SERV MINUTES FOUNDATIO N OFFICE 96879 EAR, NOSE SHASHY OUTPATIEN 5 5 AND SANDOVAL T VISIT THROAT 25 [facility] SHAMAR - 5 5 [facility] OUTPATIEN [facility] SHAMAR [facility] 5 5 [facility] OUTPATIEN [facility] SHAMAR [facility] 5 5 [facility] OUTPATIEN [facility] SHAM[facility] - 5 5 [facility] - 5 5 [facility]IEN [facility] SHAMAR - 5 5 [facility] OUTPATIEN [facility] SHAMAR [facility] 5 5 [facility] OUTPATIEN [facility] SHAMAR - 5 5 [facility] OUTPATIEN [facility] SH[facility] - 4 4 [facility]PAT[facility] HOME VST 34392 MD2U DOROTEO EST PT 4 4 [place] [facility] SIGNIF NEW PROB 60 MINS [facility] 4 N [facility] 4 [facility] 91659 [facility] 3 3 N [facility] VISIT [facility] MODERATE [facility]VERITY HOSPITAL [facility] 3 3 [facility] 3 3 N [facility] 71872 [facility], 3 3 [facility] HOS MODERATE [facility]VERITY CRITICAL MHC INC, ACCESS 3 3 BILINGUAL MEDICAL ASSISTANT [facility] 3 3 N [facility]EN [facility] 2 2 N [facility] OFF[facility] 72590 MAKSIM OUTPATIEN 2 2 KARIN T NEW 30 MINUTES EMERGENCY 38898 [facility] 2 2 N [facility] VISIT [facility] MODERATE [facility]VERITY HOSP[facility] 2 2 N [facility] 23835 ARYANWENDY IVANMARILOU OUTPATIEN 2 2 JR ALEXANDER ALEXANDER VISIT 15 MINUTES HOSPITAL [facility] - 1 1 [facility] - 1 1 [facility] 1 N [facility] EMERGENC[facility] 82300 [facility] 1 1 N [facility] 1 [facility] 1 1 [facility] 62872 [facility] DE[facility] 1 1 MEDICAL SON VISIT SERV HIGH FOUNDATIO SEVERITY& THREAT FUNCJ EMERGENCY 23893 SHAMAR 1 1 [facility] VISIT HIGH/URGE NT SEVERITY HOSPITAL [facility]IVERSIT - 1 1 [facility] SHAMAR - 0 0 [facility] 0 0 [facility] OUTPATIEN [facility] SHAMAR - 0 0 [facility] OUTPATIEN [facility] OFFICE 96317 DEENA SHAFFER, [facility] 0 0 SERAFIN Crespo [facility] 30 MINUT[facility] SHAMAR - 0 0 [facility] OUTPATIEN [facility] T OFFICE 08767 MADDY LELO GOMEZ, [facility] 0 0 MEDICAL D D T VISIT SERV [facility] 0 0 Y [facility] UN[facility]ERSIT - 0 0 Y [facility] T OFFICE 27812 [facility] 0 MEDICAL OCTAVIANO S T VISIT SERV [facility] 0 Y [facility] CARDINAL - 0 0 [facility] EMERGENCY 35935 MADDY JENNIFER, DEPT 0 0 MEDICAL BARBI C VISIT SERV HIGH FOUNDATIO SEVERITY& THREAT [facility] UNIVERSIT - 0 0 Y INPATIENT HOSPITAL [facility] SHAMAR - 9 9 [facility] OUTPATIEN [facility] SHAMAR [facility] 9 9 [facility] OUTPATILONG [facility] T OFFICE 14109 FELIPE [facility]RERA [facility] 9 9 [facility] 45 CLINIC MINUTES PSC OFFICE 38285 [place] [facility] 9 9 Carlos Enrique PARADA JR VISIT INTERNAL NATHAN F 15 MED MINUTES EMERGENCY 72450 [place] 9 9 [facility] T VISIT LOW/MODER SEVERITY [facility] - [address] [place] [address] T OFFICE 50454 [place] [facility] 9 9 [facility], T VISIT INTERNAL NATHAN F 25 MED MINUTES CRITICAL JAMEL ACCESS 9 9 [facility] OFFICE 79836 [place] B[facility]ON, OUTPATIEN 9 9 TAL Villafana T VISIT INTERNAL 15 MED MINUTES OFFICE 81193 SYBIL DEVINE CONSULTAT 9 9 JIGNESH Olivia JIGNESH Baker ION NEW/ESTAB PATIENT 30 MIN [facility] - 9 9 [facility] OUTPATIEN INC T CRITICAL JAMEL ACCESS 9 9 [facility] OFFICE 72989 [place] MCKEMIE OUTPATIEN 9 9 Carlos Enrique PARADA JR VISIT INTERNAL NATHAN F 15 MED MINUTES OFFICE 47024 [place] MCKEMIE OUTPATIEN 8 8 Carlos Enrique PARADA JR VISIT INTERNAL NATHAN F 15 MED MINUTES OFFICE 54441 [place] [facility], OUTPATIEN 8 8 TAL Villafana T VISIT INTERNAL 15 MED MINUTES OFFICE 58473 [place] MCKEMIE OUTPATIEN 8 8 Carlos Enrique PARADA JR VISIT INTERNAL NATHAN F 15 MED MINUTES OFFICE 23584 JEET WYATT 8 8 PRASANTH Castillo ION [facility] NEW/ESTAB PSC PATIENT 40 MIN [facility] - 8 8 [facility] - 8 8 [facility] - 8 8 [facility] INC T OFFICE 43533 [place] MCK[facility] OUTPATIEN 8 8 Carlos Enrique PARADA JR VISIT INTERNAL NATHAN F 15 MED MINUTES OFFICE 12523 [place] [facility]CK[facility] OUTPATIEN 8 8 Carlos Enrique PARADA JR VISIT INTERNAL NATHAN F 15 MED MINUTES
--- OUTSIDE RECORDS SUMMARY | 2017-02-04 15:29 | External Medical Summary Rpt ---
Author Author , HARLEY Thakkar HARLEY Address Unknown Phone Care Team Providers Care Machine Sander Name Role Phone [facility] Unavailable Unavailable PHARMACY, [facility], Unavailable Unavailable [facility] Unavailable Unavailable [facility]ACY # 1, [facility] JHONATHANCHERYLE CONTI, Unavailable Unavailable CHERYLE BELTRAN M LENORA HANSEN Unavailable Unavailable ANA GARCIA, Unavailable Unavailable ANA BRICEÑO RICHARD, Unavailable Unavailable [facility] [employer] [facility] Unavailable Unavailable [facility], [facility] Unavailable Unavailable [facility], [facility] AREVALO, AREVALO Unavailable Unavailable AREVALO ALL, AREVALO ALL Unavailable Unavailable [facility], Unavailable Unavailable [employer] [facility] Unavailable Unavailable SERVICE, [facility] Unavailable Unavailable HOSP, [facility]P CASE JUS, CASE JUS Unavailable [...] Unavailable SPECIAL, EAR, NOSE AND THROAT SPECIAL [facility] Un[facility] ESCOTT EDW, ESCOTT Unavailable Unavailable EDW [facility] Unavailable Unavailable [facility]PATOL, [facility] Unavailable Unavailable HOSPITA, [facility] GILBERTO RHO, GILBERTO Unavailable Unavailable RHO GILBERTO RHO, GILBERTO Unavailable Unavailable RHO [facility] Unavailable Unavailable CARE, [facility] C[facility] Unavailable Unavailable CARE, [facility]ARE [facility] Unavailable Unavailable INC, [facility], Unavailable Unavailable [facility], Unavailable Unavailable [facility] JOAQUIN BERTRAND Unavailable Unavailable [facility] Unavailable Unavailable E[facility], [facility] Unavailable Unavailable [facility]IP[facility], [facility] BENÍTEZ-JULIET EVELIN, Unavailable Unavailable BENÍTEZ-JULIET EVELIN BENÍTEZ-JULIET EVELIN, Unavailable Unavailable BENÍTEZ-JULIET EVELIN [facility] Unavailable Unavailable IMAGING [facility], [facility] SUDHAKAR, SELMA Crespo, SUDHAKAR, Unavailable Unavailable SELMA Crespo [facility] # Unavailable Unavailable [id number], [facility] # [id number] Aguila CASTELLANOS, Aguila CASTELLANOS Unavailable Unavailable [facility] Un[facility], [facility] TRUJILLO, TRUJILLO Unavailable Unavailable [facility] N, Unavailable Unavailable [facility] N YFN ZENDEJAS, AASHISH, Unavailable Unavailable YFN Escamilla [facility] Unavailable Unavailable SERVICES, [facility] BRAD LEE Unavailable Unavailable RODY MUNOZ, Unavailable Unavailable [facility] MUNOZ, Unavailable Unavailable NATHAN TUCKER JR, JR Unavailable Unavailable F, NATHAN HUNTER JR [address] [place] [address], Unavailable Unavailable [address] [facility] Unavailable Unavailable [facility], [facility], Unavailable Unavailable [facility] JENNIFER, BARBI C, Unavailable Unavailable ALTO, BARBI C [facility] Unavailable Unavailable [facility], [facility] NATHAN MUNOZ, Unavailable Unavailable NATHAN MUNOZ STEPHANIE E, Unavailable Unavailable TREE PÉREZ [facility], Unavailable Unavailable [facility] NICKELS CJ, NICKELS Unavailable Unavailable CJ [...] GAN MUH, GAN Unavailable Unavailable [facility]H RECHTIN ELEVATOR INSTALLER APPRENTICE, RECHTIN Unavailable Unavailable ELEVATOR INSTALLER APPRENTICE [place] ALEXANDER, Unavailable Unavailable [place] ALEXANDER [place] [...] [facility] VALE ARZATE, Unavailable Unavailable VAL[facility] AR[facility] Unavailable Unavailable CENTER, [facility], [facility] Unavailable Unavailable [facility], Unavailable Unavailable [facility] WEHRMAN III ALEXANDER, Unavailable Unavailable WEHRMAN III ALEXANDER MAKSIM FRAZIER, MAKSIM Unavailable Unavailable KARIN FRAZIER, MAKSIM Unavailable Unavailable KARIN [facility] Unavailable Unavailable 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 ANGINA PECTORIS I6523 OCCLUSION & 01-07-2017 [facility] STENOSIS [facility] BILATERAL INC CAROTID ARTERIES I6529 OCCLUSION & 01-07-2017 [facility] STENOSIS PHYSICIANS UNSPECIFIED GROUP CAROTID ARTERY M542 CERVICALGIA 01-07-2017 [facility] R42 DIZZINESS 01-07-2017 [facility] AND PHYSICIANS GIDDINESS GROUP R5383 OTHER 01-07-2017 [facility] FATIGUE PHYSICIANS GROUP I208 OTHER FORMS 01-01-2017 [facility] OF ANGINA [facility] PECTORIS INC Z8673 PERSONAL HX 01-01-2017 [facility] TIA & [facility] CEREB INC INFARCT NO RESID DEFICIT I209 ANGINA 12-17-2016 [facility] PECTORIS [facility] UNSPECIFIED INC I639 CEREBRAL 12-17-2016 [facility] INFARCTION PHYSICIANS UNSPECIFIED GROUP Z9114 PATIENTS 12-17-2016 [facility] OT PHYSICIANS NONCOMPLIAN GROUP CE W/MEDICATIO N REGIMEN R0989 OT SPEC SX 12-04-2016 [facility] & SIGNS [facility] INVLV THE INC CIRC & RESP SYS I6350 CEREBRAL 10-29-2016 [facility] INFARCT D/T PHYSICIANS UNS GROUP OCCL/STEN UNS CEREB ART H47956 SPONDYLOSIS 10-21-2016 [facility] W/O PHYSICIANS MYELOPATH/R GROUP ADICULOPATH Y CERV RGN R1310 DYSPHAGIA 10-21-2016 [facility] UNSPECIFIED PHYSICIANS GROUP K449 DIAPHRAGMAT 10-11-2016 [facility] HERNIA MEDICAL W/O IMAGING ASS OBSTRUCTION OR GANGRENE R070 PAIN IN 10-11-2016 [facility] R7989 OTHER SPEC 10-09-2016 COMBIN[facility] ABNORMAL PHYSICIANS FINDINGS LA BLOOD CHEMISTRY D649 ANEMIA 03-11-2016 COMBINED UNSPECIFIED PHYSICIANS LA E119 TYPE 2 03-11-2016 [facility] DIABETES PHYSICIANS MELLITUS LA WITHOUT COMPLICATIO NS R0609 OTHER FORMS 01-09-2016 [facility] OF DYSPNEA [facility] INC R011 CARDIAC 10-04-2015 [facility] MURMUR [facility] UNSPECIFIED INC R0600 DYSPNEA 10-04-2015 [place] UNSPECIFIED [facility]ICAL IMAGING ASS [id number] OTHER LONG 10-04-2015 [facility] TERM [facility] CURRENT INC DRUG THERAPY N97972 UNS 06-29-2015 [facility] PRE-EXISTIN [facility] G HTN COMP ELDER CARE PREG THIRD TRIMESTER J449 CHRONIC 04-17-2015 [facility] OBSTRUCTIVE [facility] PULMONARY ELDER CARE DISEASE UNS M5136 OT 04-06-2015 [place] [facility] INTERVERTEB SERV RAL DISC FOUNDATION DEGEN LUMBAR REGION 272 DISORDERS 03-10-2015 [place] OF LIPOID [facility] METABOLISM ELDER CARE 300 ANXIETY 03-10-2015 [facility] DISSOCIATIV [facility] E AND ELDER CARE SOMATOFORM DISORDERS 401 ESSENTIAL 03-10-2015 [place] HYPERTENSIO [facility] N ELDER CARE 430 SUBARACHNOI 03-10-2015 [facility] HEMORRHAGE ELDER CARE 715 OSTEOARTHRO 03-10-2015 [facility] AND [facility] ALLIED ELDER CARE DISORDERS 60984 UNSPECIFIED 02-28-2015 EAR, NOSE AND THROAT SENSORINEUR SPECIAL AL HEARING LOSS 7813 LACK OF 02-21-2015 [facility] COORDINATIO [facility] N INC V571 OTHER 02-21-2015 [facility] PHYSICAL [facility] THERAPY INC 05922 ATHEROSLERO 11-30-2014 [facility] NATV ART [facility] EXTREM INC W/INTERMIT CLAUDICAT 4439 UNSPECIFIED 11-30-2014 [place] PERIPHERAL [facility]ICAL VASCULAR IMAGING ASS DISEASE 7213 LUMBOSACRAL 10-31-2014 [place] [facility] SPONDYLOSIS IMAGING ASS WITHOUT MYELOPATHY 86659 DISPLCMT 10-31-2014 [place] LUMBAR MEDICAL INTERVERT IMAGING ASS DISC W/O MYELOPATHY 59946 DEGEN 10-31-2014 [place] LUMBAR/LUMB MEDICAL OSACRAL IMAGING ASS INTERVERTEB RAL DISC 18933 SPINAL STEN 10-31-2014 [place] LUMB REG MEDICAL W/O IMAGING ASS NEUROGENIC CLAUDICATIO N 7242 LUMBAGO 10-31-2014 [facility] INC V641 SURG/OTH 10-03-2014 [facility] PROC NOT [facility] DONE INC BECAUSE CONTRAINDIC ATION 7295 PAIN IN 08-30-2014 [facility] SOFT [facility] TISSUES OF INC LIMB 9597 INJURY 08-30-2014 [place] OTHER&UNSPE MEDICAL CIFIED KNEE IMAGING ASS LEG ANKLE&FOOT V7189 OBSERVATION 08-30-2014 [place] OTHER MEDICAL SPECIFIED IMAGING ASS SUSPECTED CONDITIONS 17159 PAIN IN 08-21-2014 [facility] JOINT [facility] PELVIC INC REGION AND THIGH 42854 UNSPECIFIED 06-18-2014 [facility] SITE OF MEDICAL ANKLE EQUIPMENT SPRAIN AND STRAIN 88959 PAIN IN 06-14-2014 [facility] JOINT, [facility] ANKLE AND INC FOOT 6918 OTHER 11-29-2013 [facility] ATOPIC [place] DERMATITIS [facility] AND RELATED CONDITIONS 6989 UNSPECIFIED 11-29-2013 [facility] PRURITIC [place] DISORDER [facility] 67837 GEN 11-29-2013 [facility] OSTEOARTHRO [place] SIS LLC INVOLVING MULTIPLE SITES 67095 OTHER 11-29-2013 [facility] MALAISE AND [place] FATIGUE LLC 7821 RASH AND 11-29-2013 [facility] OTHER [place] NONSPECIFIC LLC SKIN ERUPTION 7823 EDEMA 11-29-[address] [facility] 8248 UNSPECIFIED 11-29-2013 [facility] CLOSED [place] FRACTURE OF LLC ANKLE 7812 ABNORMALITY 10-21-2013 ROSALIE MAT OF GAIT 17206 10-21-2013 [employer] [facility] ACTION 2113 BENIGN 10-13-2013 [facility] NEOPLASM OF OLOGY AND COLON HEPATOL 81609 UNSPECIFIED 09-03-2013 [facility] OSTEOPOROSI HOSPITA S 8242 CLOSED 07-05-2013 [facility] FRACTURE OF LATERAL MALLEOLUS V664 CONVALESCEN 07-05-2013 [facility] CE FOLLOWING TREATMENT OF FRACTURE 05660 DIAB W/O 06-11-2013 [facility] COMP TYPE COMMUNITY II/UNS NOT HOSPITA STATED UNCNTRL 2720 PURE 06-11-2013 [facility] HYPERCHOLES [facility] TEROLEMIA HOSPITA 4019 UNSPECIFIED 06-11-2013 [facility] ESSENTIAL [facility] HYPERTENSIO HOSPITA N 8244 CLOSED 06-11-2013 [facility] BIMALLEOLAR FRACTURE E8859 FALL FROM 06-11-2013 [facility] OTHER SLIPPING TRIPPING OR STUMBLING 86215 BORDERLINE 12-30-2012 [place] GLAUCOMA ALEXANDER WITH ANATOMICAL [place]OW [place]GLE 51962 NUCLEAR 12-30-2012 [place] SCLEROSIS ALEXANDER 3670 HYPERMETROP 12-30-2012 [place] IA ALEXANDER 24539 UNSPECIFIED 12-30-2012 [place] SUBJECTIVE ALEXANDER VISUAL DISTURBANCE 31290 ESOPHAGEAL 11-12-2012 [facility] REFLUX NKLIN EVELIN 14112 UNS 11-12-2012 [facility] GASTRITIS&G NKLIN EVELIN ASTRODUODIT IS W/O MENTION HEMORR 9953 ALLERGY 07-31-2012 [facility] UNSPECIFIED PRASHANT NOT ELSEWHERE CLASSIFIED 7231 CERVICALGIA 07-29-2012 [facility] HOSPITA 74137 UNSPECIFIED 07-26-2012 GAN MU ARTHROPATHY SITE UNSPECIFIED V1254 PERSONAL HX 07-26-2012 [facility] TIA & CI W/O RESIDUAL DEFICITS V4589 OTHER 07-26-2012 [facility] POSTSURGICA L STATUS OTHER V8801 ACQUIRED 07-26-2012 [facility] ABSENCE OF BOTH CERVIX AND UTERUS 88614 OCCLUSION&S 04-22-2012 [facility] CAROTID ART HOSPITA W/O MENTION INFARCT 25630 DYSARTHRIA 04-22-2012 ROSALIE MAT 32039 OCCL&STENOS 03-25-2012 ROSALIE MAT MX&BILAT PRECERBRL ART W/O INFARCT 14354 UNSPECIFIED 03-25-2012 [facility] ARTERY HOSPITA OCCLUSION W/INFARCT 14650 CLOSED 12-18-2011 MAKSIM FRAZIER FRACTURE UNSPEC PART UPPER END HUMERUS 2724 OTHER AND 11-25-2011 ELSA GOMEZ UNSPECIFIED ALEXANDER HYPERLIPIDE SUSANA 60517 PAIN IN 09-06-2011 MAKSIM KARIN JOINT, UPPER ARM 78991 PAIN IN 09-06-2011 MAKSIM KARIN JOINT, HAND 02537 PAIN IN 09-02-2011 [facility] [place] JOINT, RADIOLOGY SHOULDER REGION 83843 CLOSED 09-02-2011 [facility] FRACTURE OF COMMUNITY SURGICAL HOSPITA NECK OF HUMERUS 02340 OPEN 09-02-2011 NEGIN ELEVATOR INSTALLER APPRENTICE FRACTURE OF SURGICAL NECK OF HUMERUS 9592 INJURY 09-02-2011 [facility] [place] OTHER&UNSPE RADIOLOGY CIFIED SHOULDER&UP PER ARM E8888 OTHER FALL 09-02-2011 RECHTIN ELEVATOR INSTALLER APPRENTICE 70982 OTHER 04-25-2011 [facility] [place] [address] ALTERED 04-25-2011 [place] MENTAL MEDICAL STATUS IMAGING ASS 31164 LEUKOCYTOSI 04-15-2011 COMBINED S PHYSICIANS UNSPECIFIED LA 436 ACUTE BUT 03-13-2011 [facility] ILL-DEFINED MEM HOS[facility] INC CEREBROVASC ULAR DISEASE 7840 HEADACHE 03-13-2011 [facility] 68971 YABA MONKEY 03-07-2011 [facility] TUMOR [facility] VIRUS INC 7881 DYSURIA 03-07-2011 [facility] INC 16316 ULCER OF 12-14-2010 PATHOLOGY & LOWER LIMB, CYTOLOGY LAB UNSPECIFIED 1330 SCABIES 11-26-2010 [facility] 9244 CONTUSION 11-26-2010 [facility] OF MULTIPLE COMMUNITY SITES OF HOSPITA LOWER LIMB 9248 CONTUSION 11-26-2010 [place] OF MULTIPLE EMERGENCY SITES NEC SERVICES 90003 OTHER 10-26-2010 [facility] SPEECH COMMUNITY DISTURBANCE HOSPITA V573 CARE 10-26-2010 [facility] INVOLVING COMMUNITY USE REHAB HOSPITA SPEECH-LANG UAGE [place] 5990 URINARY 08-27-2010 [place] [facility] TRACT SERV INFECTION [facility] SITE NOT [...] 08-23-2010 [facility] 02663 CORONARY 08-23-2010 [facility] OSIS GULKANA CORONARY ARTERY 13588 OTHER 08-23-2010 [place] DISEASES OF MEDICAL LUNG NOT IMAGING ASS ELSEWHERE CLASSIFIED 98443 TRANSIENT 08-23-2010 [place] [facility] ALTERATION SERV OF FOUNDATIO AWARENESS 2409 GOITER, 04-19-2010 [facility] UNSPECIFIED [facility] HOSP INC 60131 DYSPHAGIA 04-19-2010 [place] UNSPECIFIED MEDICAL IMAGING ASS 44868 DYSPHAGIA 04-19-2010 [facility] ORAL PHASE [facility] INC 6278 OTHER SPEC 02-08-2010 [facility] MENOPAUSAL& MEM HOSP POSTMENOPAU INC CHRISTOPH DISORDER 91987 DISORDER OF 02-08-2010 [facility] BONE AND MEM HOSP CARTILAGE INC UNSPECIFIED V7612 OTHER 02-08-2010 [place] SCREENING MEDICAL MAMMOGRAM IMAGING ASS 92136 SENSORINEUR 12-14-2009 [facility] SHAFFER HEARING SERAFIN G LOSS BILATERAL 7804 DIZZINESS 12-14-2009 MADHURI SHAFFER GIDDINESS 76884 MEMORY LOSS 11-06-2009 [facility] INC 74914 OTHER 11-06-2009 [facility] NONSPECIFIC MEM [facility] FINDINGS INC EXAMINATION OF BLOOD 62614 CLOSED 10-24-2009 [place] [facility] FRACTURE OF SERV HEAD OF FOUNDATIO RADIUS V5489 OTHER 10-24-2009 [facility] AFTERCARE V4365 KNEE JOINT 09-13-2009 REGINALDO REPLACEMENT HOME MED BY [employer] MEANS 7993 UNSPECIFIED 08-16-2009 [place] [facility] DEBILITY SERV [facility] 9598 INJURY 08-16-2009 [place] [facility]ICAL OTH&UNSPEC SERV OTH SPEC FOUNDATIO SITES INCL MULTIPLE V4981 ASYMPTOMATI 08-16-2009 NEURODIAGNO C STICPS POSTMENOPAU CHRISTOPH STATUS 39507 DIAB 08-10-2009 [place] [facility] W/NEURO SERV MANIFESTS FOUNDATIO TYPE II/UNS NOT UNCNTRL 3572 POLYNEUROPA 08-10-2009 [facility] THY IN SERV DIABETES FOUNDATIO V5419 AFTERCARE 08-10-2009 [facility] HEALING SERV TRAUMATIC FOUNDATIO FRACTURE OTHER BONE 05049 MORBID 07-06-2009 [facility] 7292 UNSPECIFIED 07-06-2009 [facility] NEURALGIA [facility] NEUR[facility] AND RADICULITIS 66884 CLOSED 07-06-2009 [facility] UNSPECIFIED INTERNAL CONDYLE MEDICINE HUMERUS 8246 CLOSED 07-06-2009 [facility] R FRACTURE INTERNAL MEDICINE V1588 PERSONAL [...] AND OVER HOSP ADULT V7281 PRE-OPERATI 06-29-2009 [facility] CARDIOVASCU INTERNAL LAR MEDICINE EXAMINATION 52835 CLOSED 06-28-2009 [place] MED[facility] FRACTURE OF SERV [...] MEDICAL ADJUSTMENT SERV OF FOUNDATIO ORTHOPEDIC DEVICE 79557 COR 05-22-2009 [facility] UNSPEC HOSPITAL TYPE VESSEL PROF SERV GULKANA/SANTOS T 32719 OTHER 05-15-2009 [facility]ARD[facility] DYSRHYTHMIA PROF SERV S 02546 OTH 04-24-2009 [facility] EXTRAPYRAMI [facility] MADDIE INTERNAL DZ&ABNORM MED MOVMNT DISORDER 3569 UNSPEC 04-24-2009 [facility] HEREDIT&IDI [facility] OPATHIC INTERNAL PERIPHERAL MED NEUROPATHY 7011 ACQUIRED 02-20-2009 [facility] KERATODERMA [facility] INTERNAL MED 21563 UNSPECIFIED 02-20-2009 [facility] URINARY [facility] INCONTINENC INTERNAL E MED V1589 OTH SPEC 10-13-2008 [facility] OT V7611 SCREENING 10-13-2008 [facility] PATIENT 6101 DIFFUSE 09-21-2008 [facility] CYSTIC [facility] MASTOPATHY INTERNAL MED 21229 GANGLION OF 09-21-2008 [facility] [place] [facility] SHEATH INTERNAL MED 32246 MICROSCOPIC 08-11-2008 [facility] 3559 MONONEURITI 08-09-2008 [facility] S OF [facility] UNSPECIFIED INTERNAL SITE MED 496 CHRONIC 05-31-[address] [facility] [address] [facility] OBSTRUCTION INTERNAL NEC MED 42805 UNSPECIFIED 05-31-2008 [facility] CONSTIPATIO INTERNAL N MED 12403 DEHYDRATION 03-09-2008 [facility] INTERNAL MED 5589 OTH&UNSPEC 03-09-2008 [facility] NONINFECTIO VALLEY US INTERNAL GASTROENTER MED ITIS&COLITI S 56746 NAUSEA WITH 03-08-2008 [facility] VOMITING [facility] 96195 DIARRHEA 03-08-2008 [facility] 76159 UNSPECIFIED 01-19-2008 [facility] ARTHROPATHY INTERNAL MULTIPLE MED SITES 17128 OBSTRUCTIVE 01-15-2008 [facility] 46754 HYPERSOMNIA 12-07-2007 [facility] WITH SLEEP MEM HOSP APNEA INC UNSPECIFIED 6256 FEMALE 11-23-2007 [facility] V5869 LONG-TERM 11-20-2007 [facility] (CURRENT) [facility] USE OF HOSPITAL OTHER PROF SERV MEDICATIONS 93951 UNSPECIFIED 11-03-2007 [facility] RESPIRATORY INTERNAL MED ABNORMALITY 87931 OTHER 11-03-2007 [facility] DYSPNEA AND [place] [address] DIAB W/O 09-17-2007 [facility] MENTION [facility] COMP TYPE INTERNAL II/UNS TYPE MED UNCNTRL 39878 INTRINSIC 09-15-2007 [facility] [...] ti [place] 30 1 7- ER 19 [place] ve EP 83 20 20 5 E AM 30 11 11 PH JR 1 5 AR MA WI MG CY LL # IA TA M BL 24 F ET 70 9 CL 00 09 09 1 60 30 KR 45 MC Ac ON -0 -0 .0 OG 77 KE ti [place] 30 1- - ER 19 [place] ve EP 83 20 20 5 E [...] [place] 50 3- 3- 00 D 14 [place] ve EP 09 20 20 HO E AM 79 10 10 ME JR 1 6 CA RE WI MG LL PH IA DI AR M S MA F TA CY BL # ET 1 CL 00 08 11 1 30 30 AM 81 MC Ac ON 55 -0 -1 .0 ME 32 KE ti [place] 50 3- 0- 00 D 14 [place] ve EP 09 20 20 HO E AM 79 10 10 ME JR 1 6 CA RE WI MG LL PH IA DI AR M S MA F TA CY BL # ET 1 CL 00 08 10 1 30 30 AM 81 MC Ac ON 55 -0 -1 .0 ME 32 KE ti [place] 50 3- 3- 00 D 14 [place] ve EP 09 20 20 HO E AM 79 10 10 ME JR 1 6 CA RE WI MG LL PH IA DI AR M S MA F TA CY BL # ET 1 CL 00 08 09 1 30 30 AM 81 MC Ac ON 55 -0 -1 .0 ME 32 KE ti [place] 50 3- 3- 00 D 14 [place] ve EP 09 20 20 HO E AM 79 10 10 ME JR 1 6 CA RE WI MG LL PH IA DI AR M S MA F TA CY BL # ET 1 CL 00 08 08 1 30 30 AM 81 MC Ac ON 55 -0 -1 .0 ME 32 KE ti [place] 50 3- 6- 00 D 14 [place] ve EP 09 20 20 HO E [...] Procedure DOS Code Location Performer Comment ECG [id number] [facility] IBANEZ ROUTINE 7 [facility] ECG INC INC W/LEAST 12 LDS TRCG ONLY W/O I&R ECG 16525 [facility] DAREN ROUTINE 7 PHYSICIAN ECG S GROUP W/LEAST 12 LDS I&R ONLY CV STRS 61942 [facility] IBANEZ TST 7 MEM [facility] XERS&/OR INC INC RX CONT ECG TRCG ONLY MYOCARDIA 38835 [facility] IBANEZ L SPECT 7 [facility] MULTIPLE INC INC STUDIES ECG 52423 [facility] IBANEZ ROUTINE 7 [facility] ECG INC INC W/LEAST 12 LDS TRCG ONLY W/O I&R ECG 49060 [facility] ROUTINE 7 PHYSICIAN ECG S GROUP W/LEAST 12 LDS I&R ONLY ECHO 03008 [facility] IBANEZ TTHRC R-T 7 MEM HOSP MEM [facility] 2D INC INC W/WOM-MOD E COMPL SPEC&COLR D DUPLEX 23330 [facility] SCAN 7 MEDICAL EXTRACRAN IMAGING IAL ART ASS COMPL BI STUDY ECG 08655 [facility] ROUTINE 7 PHYSICIAN ECG S GROUP W/LEAST 12 LDS I&R ONLY ECG 40297 [facility] IBANEZ ROUTINE 7 MEM H[facility]P [facility] ECG INC INC W/LEAST 12 LDS TRCG ONLY W/O I&R RADEX 17945 [place] AREVALO ESOPHAGUS 7 MEDICAL IMAGING ASS BASIC 34228 COMBINED COMBINED METABOLIC 7 PHYSICIAN PHYSICIAN PANEL S LA S LA CALCIUM TOTAL COMPREHEN 74576 COMBINED COMBINED SIVE 6 PHYSICIAN PHYSICIAN METABOLIC S LA S LA PANEL LIPID 71128 COMBINED COMBINED PANEL 6 PHYSICIAN PHYSICIAN S LA S LA HEMOGLOBI 76933 COMBINED COMBINED N 6 PHYSICIAN PHYSICIAN GLYCOSYLA S LA S LA CAMILA A1C BLOOD 97387 COMBINED COMBINED COUNT 6 PHYSICIAN PHYSICIAN COMPLETE S LA S LA AUTO&AUTO DIFRNTL WBC ECHO 12290 [facility]AMAR TTHRC R-T 6 MEM HOSP MEM [facility]OS[facility] 2D INC INC W/WOM-MOD E COMPL SPEC&COLR D COMPREHEN 18268 [facility] IBANEZ SIVE 6 MEM HOSP [facility]OS[facility] METABOLIC INC INC PANEL HEMOGLOBI 85976 [facility] IBANEZ N 6 MEM HOSP MEM HOSP GLYCOSYLA INC INC CAMILA A1C LIPID 29195 [facility] IBANEZ PANEL 6 MEM HOSP MEM [facility]OS[facility] INC INC RADIOLOGI 55451 [facility] IB[facility]Z C EXAM 6 MEM HOSP [facility] HOS[facility] CHEST 2 INC INC VIEWS FRONTAL&L ATERAL RADIOLOGI 38590 [place] AREVALO ALL C 6 MEDICAL EXAMINATI IMAGING ON CHEST ASS SINGLE VIEW FRONTAL BLOOD 80917 [facility] IBANEZ COUNT 6 MEM HOSP [facility]OS[facility] COMPLETE INC INC AUTO&AUTO DIFRNTL WBC COLLECTIO 06387 [facility] N VENOUS 6 MEM HOSP MEM [facility]OS[facility] BLOOD INC INC VENIPUNCT URE COMPRE 97731 EAR, NOSE SHASHY AUDIOMETR 5 AND SANDOVAL Y THROAT THRESHOLD SPECIAL EVAL SP RECOGNIJ APPL 59317 [facility] MODALITY 5 MEM HOSP [facility]OS[facility] 1/> AREAS INC INC IONTOPHOR ESIS EA 15 MIN APPL 64376 [facility] MOD[facility]ITY 5 [facility] 1/> AREAS INC INC ULTRASOUN D EA 15 MIN APPL 78044 [facility] MODALITY 5 [facility] 1/> AREAS INC INC ULTRASOUN D EA 15 MIN APPL 57427 [facility] MODALITY 5 [facility] 1/> AREAS INC INC IONTOPHOR ESIS EA 15 MIN APPL 45961 [facility] MODALITY 5 [facility] 1/> AREAS INC INC IONTOPHOR ESIS EA 15 MIN APPL 06998 [facility] MODALITY 5 [facility] 1/> AREAS INC INC ULTRASOUN D EA 15 MIN MANUAL 18104 [facility] THERAPY 5 [facility] TQS 1/> INC INC REGIONS EACH 15 MINUTES APPL 33503 [facility]ALITY 5 [facility] 1/> AREAS INC INC IONTOPHOR ESIS EA 15 MIN APPL 37346 [facility]ITY 5 [facility] 1/> AREAS INC INC ULTRASOUN D EA 15 MIN APPL 19445 [facility]ALITY 5 [facility] 1/> AREAS INC INC ULTRASOUN D EA 15 MIN APPL 24839 [facility] MODALITY 5 [facility] 1/> AREAS INC INC IONTOPHOR ESIS EA 15 MIN PHYSICAL 63520 [facility] TH[facility]APY 5 [facility] EVALUATIO INC INC N DAY CARE S5100 [facility] SERVICES [address] [place] [address] ADULT; ELDER ELDER PER 15 CARE CARE MINUTES DAY CARE S5100 [facility] [address] [place] [address] ADULT; ELDER ELDER PER 15 CARE CARE MINUTES DAY CARE S5100 [facility] [address] [place] [address] ADULT; ELDER ELDER PER 15 CARE CARE MINUTES NON-INVAS 59217 [place] [facility] DANIELLE 5 [facility] PHYSIOLOG IMAGING IC STUDY ASS EXTREMITY 3 LEVLS DAY CARE S5100 [facility] [address] [place] [address] ADULT; ELDER ELDER PER 15 CARE CARE MINUTES DAY CARE S5100 SHAMAR IBANEZ [address] ADULT; ELDER ELDER PER 15 CARE CARE MINUTES DAY CARE S5100 SHAMAR IBANEZ [address] ADULT; ELDER ELDER PER 15 CARE CARE MINUTES MRI 35533 [place] [facility] SPINAL 5 [facility] [place] CANAL IMAGING LUMBAR ASS W/O CONTRAST MATERIAL DAY CARE S5100 SHAMAR IBANEZ [address] ADULT; ELDER ELDER PER 15 CARE CARE MINUTES DAY CARE S5100 SHAMAR IBANEZ [address] ADULT; ELDER ELDER [place] 15 [place] [address] [facility] INFUSION 5 [facility] THERAPY/P INC INC ROPHYLAXI S /DX 1ST TO 1 HR DAY CARE S5100 [facility] [address] [place] [address] ADULT; ELDER ELDER PER 15 CARE CARE MINUTES APPL 47606 [facility] MODALITY 5 [facility] 1/> AREAS INC INC ULTRASOUN D EA 15 MIN E-STIM G0283 [facility] 1/> AREAS 5 [facility] OTH THAN INC INC WND CARE PART TX PLAN E-STIM G0283 [facility] IBANEZ 1/> AREAS 5 [facility] OTH THAN INC INC WND CARE PART TX PLAN APPL 17946 [facility] MODALITY 5 [facility] 1/> AREAS INC INC ULTRASOUN D EA 15 MIN APPL 20[address] SHAMAR IBANEZ [facility]ALITY 5 [facility]/> AREAS INC INC ULTRASOUN D EA 15 MIN E-STIM G0283 SHAMAR IBANEZ 1/> AREAS 5 [facility] OTH THAN INC INC WND CARE PART TX PLAN E-STIM G0283 SHAMAR SHAMAR 1/> AREAS 5 [facility] OTH THAN INC INC WND CARE PART TX PLAN APPL 99726 SHAMAR IBANEZ MODALITY 5 [facility] 1/> AREAS INC INC ULTRASOUN D EA 15 MIN RADEX 18276 CODY JONES FOOT 5 [facility] [place] COMPLETE IMAGING MINIMUM 3 ASS VIEWS APPL 07427 SHAMAR IBANEZ MODALITY 5 [facility] 1/> AREAS INC INC ULTRASOUN D EA 15 MIN E-STIM G0283 SHAMAR FRENCHON 1/> AREAS 5 [facility]OS[facility] OTH THAN INC INC WND CARE PART TX PLAN E-STIM G0283 SHAMAR IBANEZ 1/> AREAS 5 [facility]OS[facility] OTH THAN INC INC WND CARE PART TX PLAN APPL 64074 SHAMAR IBANEZ MODALITY 5 [facility] 1/> AREAS INC INC ULTRASOUN D EA 15 MIN PHYSICAL 32940 SHAMAR IBANEZ THERAPY 5 [facility] EVALUATIO INC INC N HIGH K0004 J & L J & L STRENGTH 4 [facility] R PHYSICAL 17456 SHAMAR IBANEZ THERAPY 4 [facility] EVALUATIO INC INC N APPL 49615 SHAMAR IBANEZ MODALITY 4 [facility] MEM [...] MEDICAL HT EQUIPMENT EQUIPMENT WHEELCHAI R RADEX 99427 ROSALIE MAT ROSALIE MAT ANKLE 4 COMPLETE MINIMUM 3 VIEWS NONEMERG A0120 BLUE BLUEGRASS TRNSPRT: 4 [facility] [employer] [facility] ARE[facility]/OT SYS HIGH K0004 J & L J & L STRENGTH 4 HOME [facility] EQUIPMENT EQUIPMENT WHEELCHAI R COLSC FLX 68163 GASTROENT CASE JUS W/RMVL 4 EROLOGY OF TUMOR AND POLYP HEPATOL LESION SNARE TQ NONEMERG A0120 BLUE SITA TRNSPRT: 4 [facility] K0004 J & L J & L STRENGTH 4 HOME [facility] EQUIPMENT EQUIPMENT WHEELCHAI R RADEX 15150 [facility] ANKLE 4 N N COMPLETE [facility] COMMUNITY MINIMUM 3 HOSPITA HOSPITA VIEWS RADEX 07030 [facility] ANKLE 4 N N COMPLETE [facility] MINIMUM 3 HOSPITA HOSPITA VIEWS RADEX 64062 GILBERTO GILBERTO ANKLE 4 RHO RHO COMPLETE MINIMUM 3 VIEWS LCHAIR E0978 J & L J & L ACSS PSTN 3 HOME HOME MEDICAL MEDICAL BELT/SFTY EQUIPMENT EQUIPMENT BELT/PELV STRAP EA RADEX 41031 [facility] ANKLE 3 N N COMPLETE [facility] MINIMUM 3 HOSPITA HOSPITA VIEWS VISUAL 92033 VAL NEAL FIELD XM 3 N ALEXANDER N ALEXANDER UNI/BI W/INTERP EXTENDED EXAM DETERMINA 82678 VAL PALUMBOSO TION 3 N ALEXANDER N ALEXANDER REFRACTIV E STATE EGD 72101 BENÍTEZ- BENÍTEZ- TRANSORAL 3 JULIET JULIET BIOPSY EVELIN EVELIN SING[place] [address] LETICIA ALEIDA LETICIA ALEIDA SURG 3 PATHOLOGY GROSS&BISHOP ROSCOPIC EXAM E-STIM G0283 [facility] 1/> AREAS 3 N N OTH THAN [facility] WND CARE HOSPITA HOSPITA PART TX PLAN THERAPEUT 68667 [facility] IC PX 1/> 3 N N [facility] EACH 15 HOSPITA HOSPITA MIN EXERCISES INJECTION J1040 [place] 3 PRASHANT PRASHANT METHYLPRE DNISOLONE ACETATE 80 MG THERAPEUT 93767 [facility] IC PX 1/> 3 N N [facility] EACH 15 HOSPITA HOSPITA MIN EXERCISES E-STIM G0283 [facility] 1/> AREAS 3 N N OTH THAN [facility] WND CARE HOSPITA HOSPITA PART TX PLAN INJ J2930 [place], [employer], METHYLPRD 3 SUPERVISOR INSULATION SUPERVISOR INSULATION NISOLONE JAMEL JAMEL SODIUM CO HOS CO HOS SUCCNAT TO 125 MG INJECTION J1200 [employer], [employer], 3 SUPERVISOR INSULATION SUPERVISOR INSULATION DIPHENHYD JAMEL JAMEL RAMINE CO HOS CO HOS HCL UP TO 50 MG THERAPEUT 54685 [facility] IC PX 1/> 3 N N [facility] EACH 15 HOSPITA HOSPITA MIN EXERCISES THERAPEUT 70056 [facility] IC PX 1/> 3 N N [facility] EACH 15 HOSPITA HOSPITA MIN EXERCISES PHYSICAL 04521 [facility] THERAPY 3 N N EVALUATIO [facility] N HOSPITA HOSPITA E-STIM G0283 [facility] 1/> AREAS 3 N N OTH THAN [facility] WND CARE HOSPITA HOSPITA PART TX PLAN MRA NECK 30083 ROSALIE MAT ROSALIE MAT W/O 2 CONTRST MATERIAL MRI BRAIN 70350 [facility] BRAIN 2 N N STEM W/O COMMUNITY [facility] CONTRAST HOSPITA HOSPITA MATERIAL DUPLEX 82956 ROSALIE MAT ROSALIE MAT SCAN 2 EXTRACRAN IAL ART COMPL BI STUDY RADEX 38761 MAKSIM SCHAEFFER SHOULDER 2 KARIN KARIN COMPLETE MINIMUM 2 VIEWS NONEMERG A0120 BLUE BLUE TRNSPRT: 2 [facility] ACTION ACTION AREA/OTH SYS RADEX 43604 MAKSIM SCHAEFFER SHOULDER 2 KARIN KARIN COMPLETE MINIMUM 2 VIEWS RADEX 90500 MAKSIM SCHAEFFER SHOULDER 2 KARIN KARIN COMPLETE MINIMUM 2 VIEWS RADEX 70390 MAKSIM SCHAEFFER SHOULDER 2 KARIN KARIN COMPLETE MINIMUM 2 VIEWS RADEX 66867 MAKSIM SCHAEFFER ELBOW 2 2 KARIN KARIN VIEWS RADEX 01369 MAKSIM SCHAEFFER HAND 2 KARIN KARIN MINIMUM 3 VIEWS RADEX 06937 [facility] HUMERUS 2 N N MINIMUM 2 COMMUNITY [facility] VIEWS HOSPITA HOSPITA NONEMERG A0120 BLUE BLUE TRNSPRT: 2 [facility] ACTION AREA/OTH SYS RADEX 66211 [facility] SHOULDER 2 N N COMPLETE [facility] MINIMUM 2 HOSPITA HOSPITA VIEWS RADEX 29771 [facility] CLAVICLE 2 N N COMPLETE [facility] HOSPITA HOSPITA NONCOVERE A9270 [facility] D ITEM OR 2 N N SERVICE [facility] HOSPITA HOSPITA ECG 84327 ALICIA VARGAS ROUTINE 1 EMERGENCY EMERGENCY ECG SERVICES SERVICES W/LEAST 12 LDS I&R ONLY CRITICAL 17525 ALICIA MOORE BAB CARE 1 EMERGENCY ILL/INJUR SERVICES ED PATIENT INIT 30-[address] [place] [address] [facility] HEAD/BRAI 1 MEDICAL MEDICAL N W/O IMAGING IMAGING CONTRAST ASS ASS MATERIAL 3D 74877 [facility] RENDERING 1 MEDICAL MEDICAL W/INTERP IMAGING IMAGING & ASS ASS POSTPROCE SS SUPERVISI ON LIPID 06123 COMBINED COMBINED PANEL 1 PHYSICIAN PHYSICIAN S LA S LA HEMOGLOBI 87384 COMBINED COMBINED N 1 PHYSICIAN PHYSICIAN GLYCOSYLA S LA S LA CAMILA A1C COMPREHEN 09390 COMBINED COMBINED SIVE 1 PHYSICIAN PHYSICIAN METABOLIC S LA S LA PANEL BLOOD 27889 COMBINED COMBINED COUNT 1 PHYSICIAN PHYSICIAN COMPLETE S LA S LA AUTO&AUTO DIFRNTL WBC COLLECTIO 55079 COMBINED COMBINED N VENOUS 1 PHYSICIAN PHYSICIAN BLOOD S LA S LA VENIPUNCT URE 3D 40218 CODY GORDONUTCHER RENDERING 1 [facility] [place] W/INTERP IMAGING & ASS POSTPROCE SS SUPERVISI ON 3D 17095 SHAMAR IBANEZ RENDERING 1 [facility] INC INC W/INTERP& [place] [address] CODY JONES HEAD/BRAI 1 [facility] [place] N W/O IMAGING CONTRAST ASS MATERIAL BASIC 81324 SHAMAR IBANEZ METABOLIC 1 [facility] PANEL INC INC CALCIUM TOTAL CULTURE 44893 SHAMAR IBANEZ BACTERIAL 1 [facility] INC INC QUANTTATI VE COLONY COUNT URINE CULTURE 46672 SHAMAR IBANEZ BCT 1 [facility] ISOL&PRSM INC INC PTV ID ISOLATE EA URINE URNLS DIP 35573 SHAMAR IBANEZ 1 [facility] STICK/TAB INC INC LET REAGENT AUTO MICROSCOP Y BLOOD 96279 SHAMAR IBANEZ COUNT 1 [facility] COMPLETE INC INC AUTO&AUTO DIFRNTL WBC SUSCEPTIB 95929 SHAMAR IBANEZ LTY STDY 1 [facility] ANTIMICRB INC INC IAL MICRO/AGA R DILUTJ COLLECTIO 62486 SHAMAR IBANEZ N VENOUS 1 [facility] BLOOD INC INC VENIPUNCT URE LEVEL III 40262 PATHOLOGY PATHOLOGY SURG 1 & & PATHOLOGY CYTOLOGY CYTOLOGY LAB LAB GROSS&BISHOP ROSCOPIC EXAM TX SPEECH 96272 [facility] 1 N N VOICE [facility] COMMUNITY COMMJ HOSPITA HOSPITA &/REGISTRATION MANAGER Y [place] SPEECH 38093 [facility] 1 N N VOICE COMMUNITY COMMUNITY COMMJ HOSPITA HOSPITA &/REGISTRATION MANAGER Y PROC IND [place] SPEECH 27450 [facility] 1 N N VOICE [facility] COMMUNITY COMMJ HOSPITA HOSPITA &/REGISTRATION MANAGER Y PROC IND TX SPEECH 16851 [facility] 1 N N VOICE COMMUNITY COMMUNITY COMMJ HOSPITA HOSPITA &/REGISTRATION MANAGER Y PROC IND [place] SPEECH 08683 [facility] 1 N N VOICE [facility] COMMJ HOSPITA HOSPITA &/REGISTRATION MANAGER Y PROC IND TX SPEECH 87359 [facility] 1 N N VOICE COMMUNITY COMMUNITY COMMJ HOSPITA HOSPITA &/REGISTRATION MANAGER Y PROC IND [place] SPEECH 46922 [facility] 1 N N VOICE [facility] COMMJ HOSPITA HOSPITA &/REGISTRATION MANAGER Y PROC IND EVAL 55634 [facility] SPEECH 1 N N [facility] VOICE HOSPITA HOSPITA COMMUNJ &/REGISTRATION MANAGER Y PROC HOSPITAL 75008 [facility] 1 MEDICAL [place] DAY SERV MANAGEMEN FOUNDATIO T 30 MIN/< SBSQ 52390 [facility] 1 MEDICAL [place] CARE/DAY SERV 25 FOUNDATIO MINUTES SBSQ 70824 [place] [address] MEDICAL [place] CARE/DAY SERV 25 FOUNDATIO MINUTES MRA HEAD 59721 [place] W/O 1 MEDICAL EDW CONTRST SERV MATERIAL FOUNDATIO MRA NECK 64230 [place] W/O 1 MEDICAL EDW CONTRST SERV MATERIAL FOUNDATIO MRI BRAIN 86430 [place] [facility] BRAIN 1 MEDICAL EDW STEM W/O SERV CONTRAST FOUNDATIO MATERIAL RADIOLOGI 23882 [place] NICKELS C 1 MEDICAL CJ EXAMINATI SERV ON CHEST FOUNDATIO SINGLE [place]IEW FRONTAL RADEX 68284 [place] [facility] ORBITS 1 MEDICAL EDW COMPLETE SERV MINIMUM 4 FOUNDATIO VIEWS INITIAL 28491 [facility] 1 MEDICAL [place] CARE/DAY SERV 50 FOUNDATIO MINUTES RADEX 50515 [place] ABDOMEN 1 1 MEDICAL VENICE SERV ANTEROPOS FOUNDATIO TERIOR VIEW ECHO 26342 MADDY GREGORIO EVA TTHRC R-T 1 MEDICAL 2D SERV W/WOM-MOD FOUNDATIO E COMPL SPEC&COLR D ECG [address] ROUTINE 1 MEDICAL ECG SERV W/LEAST FOUNDATIO 12 LDS I&R ONLY URNLS DIP 46922 SHAMAR IBANEZ 1 [facility] STICK/TAB INC INC LET [place] [address] SHAMAR IBANEZ TROPONIN 1 [facility] QUANTITAT INC INC DANIELLE COMPREHEN 34868 SHAMAR IBANEZ SIVE 1 [facility] METABOLIC INC INC PANEL CREATINE 18253 SHAMAR SHAMAR KINASE MB 1 [facility] FRACTION INC INC ONLY 3D 30432 CODY GORDONUTCHER RENDERING 1 [facility] [place] W/INTERP IMAGING & [place] [address] SHAMAR IBANEZ INFUSION 1 [facility] THERAPY/P INC INC ROPHYLAXI S /DX [address] [place] [address] CODY JONES HEAD/BRAI 1 [facility] [place] N W/O IMAGING CONTRAST ASS MATERIAL AMB A0427 [facility] SERVICE 1 AMBULANCE AMBULANCE ALS SERVICE SERVICE EMERGENCY TRANSPORT LEVEL 1 CRITICAL 63203 [facility] 1 EMERGENCY III ALEXANDER ILL/INJUR SERVICES ED PATIENT INIT 30-74 MIN ECG 30471 SHAMAR IBANEZ ROUTINE 1 [facility] ECG INC INC W/LEAST 12 LDS TRCG ONLY W/O I&R CREATINE 13630 SHAMAR IBANEZ KINASE 1 [facility] TOTAL INC INC GROUND A0425 [facility] MILEAGE 1 AMBULANCE AMBULANCE PER SERVICE SERVICE STATUTE MILE RADIOLOGI 34790 CODY ROBERT C 1 [facility] [place] EXAMINATI IMAGING ON CHEST ASS SINGLE VIEW FRONTAL BLOOD 94151 SHAMAR IBANEZ COUNT 1 [facility] COMPLETE INC INC AUTO&AUTO DIFRNTL WBC NONEMERG A0120 LKLP LKLP TRNSPRT: 0 COMMUNITY COMMUNITY [facility] ACTION N MTN AREA/OTH SYS US SOFT 79699 CODY ROBERT TISSUE 0 [facility] [place] HEAD & IMAGING NECK REAL ASS TIME IMGE DOCM SWALLOWIN 17621 CODY ROBERT G FUNCJ 0 [facility] [place] W/CINERAD IMAGING IOGRAPY/V ASS IDRADIOG MOTION 53130 SHAMAR IBANEZ FLUOR 0 [facility] EVAL INC INC SWLNG FUNCJ C/V REC DXA BONE 34494 SHAMAR IBANEZ DENSITY 0 [facility] STUDY 1/> INC INC SITES AXIAL SKEL COMPUTER- 90764 [place] ROBERT AIDED 0 [facility] [place] DETECTION IMAGING ASS SCREENING MAMMOGRAP HY SCREENING G0202 [place] ROBERT 0 [facility] [place] MAMMOGRAP IMAGING HY ANGELICA ASS INCL CAD WHEN PERFORMD COLLECTIO 38843 SHAMAR IBANEZ N VENOUS 0 [facility] BLOOD INC INC VENIPUNCT URE CULTURE 83189 COMBINED COMBINED BACTERIAL 0 PHYSICIAN PHYSICIAN S LA S LA QUANTTATI VE COLONY COUNT URINE HEMOGLOBI 01064 SHAMAR IBANEZ N 0 [facility] GLYCOSYLA INC INC CAMILA A1C LIPID 46652 SHAMAR FRENCHON PANEL 0 [facility] INC INC COMPREHEN 77379 SHAMAR IBANEZ SIVE 0 [facility] METABOLIC INC INC PANEL LANCETS A4259 DIABETES DIABETES PER BOX 0 CARE CLUB CARE CLUB OF 100 [facility] NORMAL A4256 DIABETES DIABETES LOW AND 0 CARE CLUB CARE CLUB HIGH [facility] CALIBRATO R SOLUTION/ [facility] A4258 DIABETES DIABETES WERED 0 CARE CLUB CARE CLUB DEVICE [facility] FOR LANCET EACH BLD GLU A4253 DIABETES DIABETES TEST/REAG 0 CARE CLUB CARE CLUB T STRIPS [facility] HOME BLD GLU MON-50 CYANOCOBA 69792 SHAMAR IBANEZ RADHA 0 [facility] VITAMIN INC INC B-12 COMPREHEN 05405 SHAMAR IBANEZ SIVE 0 [facility] METABOLIC INC INC PANEL LIPID 01373 SHAMAR FRENCHON PANEL 0 [facility] INC INC HEMOGLOBI 01151 SHAMAR IBANEZ N 0 [facility] GLYCOSYLA INC INC CAMILA A1C COLLECTIO 72270 SHAMAR IBANEZ N VENOUS 0 [facility] BLOOD INC INC VENIPUNCT URE BLOOD 40102 SHAMAR FRENCHON COUNT 0 [facility] COMPLETE INC INC AUTO&AUTO DIFRNTL WBC SYPHILIS 73485 SHAMAR IBANEZ TEST 0 [facility] NON-TREPO INC INC NEMAL ANTIBODY QUAL RADEX 83765 [facility] ANKLE 0 Y Y COMPLETE HOSPITAL HOSPITAL MINIMUM 3 VIEWS URNLS DIP 16909 COMBINED COMBINED 0 PHYSICIAN PHYSICIAN STICK/TAB S LAB S LAB LET REAGENT AUTO MICROSCOP Y LANCETS A4259 AM MED AM MED PER BOX 0 DIRECT DIRECT OF 100 [facility] PH[facility]AC[facility] NORMAL A4256 AM MED AM MED LOW AND 0 DIRECT DIRECT HIGH [facility] PHARMACY R SOLUTION/ CHIPS BLD GLU A4253 AM MED AM MED TEST/REAG 0 DIRECT DIRECT T STRIPS [facility] HOME BLD PHARMACY PHARMACY GLU MON-50 COMMODE E0163 REGINALDO HAIR CHAIR 0 HOME MED HOME MED MOBILE OR EQUIP. EQUIP. [facility] STATIONAR Y W/FIXED ARMS APPLICATI 96637 MADDY LIND JR, ON SHORT 0 MEDICAL D D LEG CAST SERV BELOW FOUNDATIO KNEE-TOE RADEX 04486 [facility] ANKLE 0 Y Y COMPLETE HOSPITAL HOSPITAL MINIMUM 3 VIEWS CAST Q4037 MADDY LIND JR, SUPPLIES 0 MEDICAL D D SHORT LEG SERV CAST FOUNDATIO ADULT PLASTER DXA BONE 05185 NEURODIAG LUTZ, DENSITY 0 NOSTICPSC YFN B STUDY 1/> SITES AXIAL SKEL PHYS CERT G0180 MADDY COBOS, MCR-COVR 0 MEDICAL OCTAVIANO S [facility] SERV SRVC PER FOUNDATIO CERT PRD RADEX 67941 [facility] ELBOW 0 Y Y COMPLETE HOSPITAL HOSPITAL MINIMUM 3 VIEWS HOSPITAL 92232 MADDY COBOS, DISCHARGE 0 MEDICAL OCTAVIANO S DAY SERV MANAGEMEN FOUNDATIO T 30 MIN/< SBSQ 49388 [facility] 0 MEDICAL OCTAVIANO S CARE/DAY SERV 25 FOUNDATIO MINUTES SBSQ 44017 [facility] 0 MEDICAL OCTAVIANO S CARE/DAY SERV 25 FOUNDATIO MINUTES SBSQ 05856 MADDY [facility] 0 MEDICAL OCTAVIANO S CARE/DAY SERV 25 FOUNDATIO MINUTES SBSQ 52753 MADDY [facility] 0 MEDICAL VALE J CARE/DAY SERV 25 FOUNDATIO MINUTES SBSQ 53427 [facility] 0 MEDICAL VALE J CARE/DAY SERV 25 FOUNDATIO MINUTES SBSQ 02330 [facility] 0 MEDICAL VALE J CARE/DAY SERV 25 FOUNDATIO MINUTES SBSQ 58400 [facility] 0 MEDICAL OCTAVIANO S CARE/DAY SERV 25 FOUNDATIO MINUTES INITIAL 35381 [facility] 0 MEDICAL OCTAVIANO S CARE/DAY SERV 70 FOUNDATIO MINUTES HOSPITAL 24607 [facility], DISCHARGE 0 Y OF [facility] E MANAGEMEN INTERNAL T 30 MEDICINE MIN/< SBSQ 09331 [facility] 0 Y OF [facility] E 25 INTERNAL MINUTES MEDICINE SBSQ 23604 [facility] 0 Y OF [facility]/DAY [place] 25 INTERNAL MINUTES MEDICINE SBSQ 83759 [facility] 0 Y OF [facility]/DAY [place] 25 INTERNAL MINUTES MEDICINE SBSQ 58569 [facility] 0 Y OF [facility]/DAY [place] 25 INTERNAL MINUTES MEDICINE [facility] 90768 [facility] 0 Y OF [facility] CARE/DAY [place] 25 INTERNAL MINUTES MEDICINE SBSQ 49823 [facility] 0 Y OF [facility]/DAY [place] 25 INTERNAL MINUTES MEDICINE RADEX 51997 [place], ANKLE 0 MEDICAL MAEGAN Granda COMPLETE SERV MINIMUM 3 FOUNDATIO VIEWS INITIAL 74184 [facility] 0 Y OF CHERYLE M CARE/DAY [place] 50 INTERNAL MINUTES MEDICINE RADEX 97305 [place], ELBOW 0 MEDICAL MAEGAN N COMPLETE SERV MINIMUM 3 FOUNDATIO VIEWS ROTARY A0436 PETROLEUM PETROLEUM WING AIR 0 MILEAGE HELICOPTE HELICOPTE PER RS INC RS INC STATUTE MILE MODERATE 89932 [place] JENNIFER, SEDATJ 0 MEDICAL BARBI C DIFF SERV PHYS/QHP FOUNDATIO 5/>YRS INIT 30 MIN AMB A0431 PETROLEUM PETROLEUM SERVICE 0 CONVNTION HELICOPTE HELICOPTE AIR SRVC RS INC RS INC TRANSPORT [address] RADEX 74236 [place], ANKLE 0 MEDICAL MAEGAN N COMPLETE SERV MINIMUM 3 FOUNDATIO VIEWS RADEX 62106 [place], FOOT 0 MEDICAL MAEGAN N COMPLETE SERV MINIMUM 3 FOUNDATIO VIEWS RADIOLOGI 20687 [place], C 0 MEDICAL MAEGAN N EXAMINATI SERV ON PELVIS FOUNDATIO 1/2 VIEWS RADIOLOGI 88737 [place], C 0 MEDICAL MAEGAN N EXAMINATI SERV ON TIBIA FOUNDATIO & FIBULA 2 VIEWS ECG 09816 Aguila VILLEDA ROUTINE 0 MEDICAL ECG SERV W/LEAST FOUNDATIO 12 LDS I&R ONLY ECHO 66733 SHAMAR HUNTER TTHRC R-T [address] W/WOM-MOD PROF SERV E COMPL SPEC&COLR D NON-INVAS 83135 [place] DANIELLE JONES 9 MEDICAL KATHLEEN PHYSIOLOG IMAGING IC STUDY ASSOCIATE EXTREMITY S 3 LEVLS ECG 27351 SHAMAR HUNTER ROUTINE 9 [facility] W/LEAST PROF SERV 12 LDS I&R ONLY ECG 49423 SHAMAR IBANEZ ROUTINE 9 [facility] ECG INC INC W/LEAST 12 LDS TRCG ONLY W/O I&R SEAT E0156 REGINALDO HAIR ATTACHMEN 9 HOME MED HOME MED T [employer] WALKER E0143 REGINALDO HAIR FOLDING 9 HOME MED HOME MED WHEELED EQUIP. EQUIP. ADJUSTABL [facility] E/FIXED HEIGHT NORMAL A4256 AM MED AM MED LOW AND 9 DIRECT DIRECT HIGH [facility] CALIBRATO PHARMACY PHARMACY R SOLUTION/ CHIPS LANCETS A4259 AM MED AM MED PER BOX 9 DIRECT DIRECT OF 100 [facility] PHARMACY PHARMACY BLD GLU A4253 AM MED AM MED TEST/REAG 9 DIRECT DIRECT T STRIPS [facility] HOME D PHARMACY PHARMACY GLU MON-50 RADEX 38715 [facility] ANKLE [address] [place] [address] COMPLETE CENTER CENTER MINIMUM 3 VIEWS APPLICATI 41853 [facility] ON SHORT [address] [place] [address] LEG CENTER CENTER SPLINT CALF FOOT LANCETS [...] HOME BLD PHARMACY PHARMACY GLU FRI- SCREENING 94524 DENNISSHERRELL HOPKINS, 9 [place] S MAMMOGRAP RADIOLOGY [...] CALIBRATO PHARMACY PHARMACY R SOLUTION/ [facility]IPS MEDICAL 89855 SHAMAR IBANEZ NUTRITION 9 [facility] INC INC ASSMT&IVN TJ INDIV EACH 15 [place] CYANOCOBA 52642 JAMEL MCCULLOUGH RADHA [address] [facility] B-12 COMPREHEN 24458 JAMEL MCCULLOUGH SIVE [address] [facility] [address] JAMEL MCCULLOUGH FOLIC [address] [facility] SERUM COLLECTIO 99126 JAMEL Granda VENOUS [address] [facility] VENIPUNCT URE LIPID 84360 JAMEL MCCULLOUGH PANEL [address] [facility] BLOOD 54522 JAMEL MCDANIEL 9 CO CO [facility] MCRSCP W/MNL DIFRNTL WBC COUNT HEMOGLOBI 50000 JAMEL MCCULLOUGH N [address] [facility] CAMILA A1C BLOOD 10624 JAMEL MCCULLOUGH COUNT [address] [facility] AUTO&[place] [address] JAMEL MCCULLOUGH THYROID 9 CO CO [facility] TSH LANCETS A4259 AM MED AM MED PER BOX 9 DIRECT DIRECT OF 100 [facility] PHARMACY PHARMACY BLD GLU A4253 AM MED AM MED TEST/REAG 9 DIRECT DIRECT T STRIPS [facility] HOME D PHARMACY PHARMACY GLU 50 URNLS DIP 71680 [place] KEYANNA, 8 GUNLOCK ANA A STICK/TAB INTERNAL LET RGNT MED NON-AUTO W/O MICRSCP LANCETS A4259 AM MED AM MED PER BOX 8 DIRECT DIRECT OF 100 [facility] PHARMACY PHARMACY BLD GLU A4253 AM MED AM MED TEST/REAG 8 DIRECT DIRECT T STRIPS [facility] HOME [facility] PHARMACY PHARMACY GLU OBSERVATI 27580 [place], ON CARE 8 GUNLOCK ANA A DISCHARGE INTERNAL MED MANAGEMEN T GROUND A0425 [facility] MILEAGE 8 [facility] STATUTE MILE INITIAL 76679 [place] MCK[place] OBSERVATI 8 [facility], ON INTERNAL NATHAN F CARE/DAY MED 30 MINUTES AMB A0427 [facility] SERVICE 8 [facility] EMERGENCY TRANSPORT LEVEL 1 BLD GLU A4253 AM MED AM MED TEST/REAG 8 DIRECT DIRECT T STRIPS [facility] HOME D PHARMACY PHARMACY GLU LANCETS A4259 AM MED AM MED PER BOX 8 DIRECT DIRECT OF 100 [facility] PHARMACY POLYSOM 40428 NEW DEBBI, 6/>YRS 8 PRASANTH Castillo SLEEP 4/> CLINIC ADDL PSC [facility] ATTND ANES [address]38 [facility] ANESTH NATHAN Castillo TONEAL OF THE LWR ABD BLUEGRASS W/URINARY TRACT NOS REPAIR C1771 SHAMAR IBANEZ DEVICE 8 [facility] URINARY INC INC INCONTINE NCE [place] [address] SHAMAR IBANEZ THER 8 [facility] PROPH/DX INC INC 1ST >1 HR THER 43282 SHAMAR IBANEZ PROPH/DX 8 [facility] NJX EA INC INC SEQL IV PUSH SBST/DRUG GLUC BLD 51857 SHAMAR IBANEZ GLUC MNTR 8 [facility] DEV INC INC CLEARED FDA SPEC HOME USE CULTURE 95780 SHAMAR IBANEZ BACTERIAL 8 [facility] INC INC QUANTTATI VE COLONY COUNT URINE URNLS DIP 50894 SHAMAR IBANEZ 8 [facility] STICK/TAB INC INC LET REAGENT AUTO MICROSCOP Y IV NFUS 19834 SHAMAR IBANEZ THER 8 [facility] PROPH/DX INC INC EA HR SLING 39471 SHAMAR IBANEZ OPERATION 8 [facility] STRESS INC INC INCONTINE NCE COLLECTIO 17008 SHAMAR IBANEZ N VENOUS 8 [facility] BLOOD INC INC VENIPUNCT URE ECG 66868 SHAMAR MCKEMIE ROUTINE 8 [facility] W/LEAST PROF SERV 12 LDS I&R ONLY BLOOD 25735 SHAMAR IBANEZ COUNT 8 [facility] COMPLETE INC INC AUTO&AUTO DIFRNTL WBC BASIC 11997 SHAMAR IBANEZ METABOLIC 8 [facility] PANEL INC INC CALCIUM TOTAL ECG 99154 SHAMAR IBANEZ ROUTINE 8 [facility] ECG INC INC W/LEAST 12 LDS TRCG ONLY W/O I&R COMPLEX 42707 [facility] UROFLOMET 8 [facility] [place] [facility] BLADDER 36341 [facility], PRESSURE 8 [facility] MEASUREME [facility]UR[facility] F[facility] [place] [facility] URTL 85500 [facility] PRESS 8 [facility] PROFILE [facility] [place] [facility] VOIDING 14080 [facility] PRESS 8 [facility] STDS BLDR [facility]IN[facility] OF [place] PRESS ANY [place] [facility] VOID 51186 [facility], PRESSURE 8 [facility] STUDIES [facility] [place] [place] [facility] LANCETS A4259 AM MED AM MED PER BOX 8 DIRECT DIRECT OF 100 [facility] PHARMACY BLD GLU A4253 [...] BOX 8 DIRECT DIRECT OF 100 [facility] PHARMACY Encounters Encounter Start End Date Code Location Performer Type Date [facility] - 7 7 [facility] T OFFICE 83023 [facility] OUTPATIEN 7 7 PHYSICIAN T VISIT S GROUP 25 MINUTES [facility] SHAMAR - 7 7 [facility] T OFFICE 53008 [facility] OUTPATIEN 7 7 PHYSICIAN T VISIT S GROUP 40 MINUTES [facility] SHAMAR - 7 7 [facility] NAVAL [facility] T OFFICE 63906 [facility] OUTPATI[facility] 7 7 PHYSICIAN T VISIT S GROUP 40 MINUTES [facility] - 7 7 [facility] T OFFICE 02336 [facility] TRUJ[facility] OUTPATIEN 7 7 PHYSICIAN T VISIT S GROUP 15 MINUTES [facility] - 7 7 [facility] T OFFICE 15056 [facility] TRUJ[facility] OUTPATIEN 7 7 PHYSICIAN T NEW 20 S GROUP MINUTES [facility] - 6 6 [facility] T OFFICE 33952 [place] [facility] PHI OUTPATIEN 5 5 MEDICAL T NEW 30 SERV MINUTES FOUNDAT[facility] N OFFICE 59094 EAR, NOSE SHASHY OUTPATIEN 5 5 AND SANDOVAL T VISIT THROAT 25 SPECIAL [facility] - 5 5 [facility] OUT[facility] - 5 5 [facility] OUT[facility] 5 5 [facility] OUTPAT[facility] 5 5 [facility] OUTPAT[facility]EN [facility] 5 5 [facility] OUT[facility] 5 5 [facility] - 5 5 [facility] OUTPATIEN [facility] - 5 5 [facility] OUTPATIEN [facility] 4 4 [facility] VST 65406 MD2U DOROTEO EST PT 4 4 [place] [employer] [employer] [facility]IGNIF NEW PROB 60 MINS [facility] - 4 4 N [facility] 04209 [facility] 3 3 N [facility] VISIT [facility] MODERATE [facility]VERITY [facility]PITAL [facility] 3 [facility] 3 3 [facility] 08997 [facility], 3 3 [facility]PERVISOR INSULATION [facility] VIS[facility] HOS MODERATE [facility]VERITY [facility]ICAL [facility], ACCESS 3 3 SUPERVISOR INSULATION [facility] - 3 3 N OUTPATIEN [facility] 60804 MAKSIM OUTPATIEN 2 2 KARIN T NEW 30 MINUTES EMERGENCY 46174 [facility] 2 2 N [facility] VISIT [facility] MODERATE [facility]VERITY [facility]PITAL [facility] 2 2 [facility] 23840 ARYANWENDY IVANMARILOU OUTPATIEN 2 2 JR ALEXANDER ALEXANDER VISIT 15 MINUTES [facility] - 1 1 [facility] 1 1 [facility] 1 1 [facility] 15689 [facility] 1 1 N [facility] 1 1 [facility] 1 1 [facility] 70654 [facility] DEPT 1 1 MEDICAL SON VISIT SERV HIGH FOUNDATIO SEVERITY& THREAT FUNCJ EMERGENCY 87520 [facility] 1 1 [facility] VISIT HIGH/URGE NT SEVERITY [facility]PITAL [facility] - 1 1 [facility] - 0 0 [facility] 0 0 [facility] OUTPATIEN [facility] SH[facility] 0 0 [facility] OUTPATIEN [facility] OFFICE 33408 DEENA SHAFFER, [facility] 0 0 SERAFIN Crespo [facility] [place] 30 MINUTES [facility] SHAMAR [facility] 0 0 [facility] OUTPATIEN [facility] T OFFICE 83400 MADDY LELO GOMEZ, [facility] 0 0 MEDICAL D D T VISIT SERV [facility] 0 Y [facility] T OFFICE 26616 [facility] 0 0 MEDICAL OCTAVIANO S T VISIT SERV [facility] Y [facility] 0 0 [facility] 82832 MADDY JENNIFER, DEPT 0 0 MEDICAL BARBI C VISIT SERV HIGH FOUNDATIO SEVERITY& THREAT [facility] UNIVERSIT - 0 0 Y INPATIENT HOSPITAL [facility] SHAMAR - 9 9 [facility] OUTPATIEN [facility] SH[facility] - 9 9 [facility] T [facility] 27530 [facility] 9 9 PRASANTH LINWOOD [facility] [place] 45 CLINIC MINUTES PSC OFFICE 02078 [place] [facility] 9 9 Carlos Enrique PARADA JR VISIT INTERNAL NATHAN F 15 MED MINUTES EMERGENCY 89740 [place] 9 9 [facility] T VISIT LOW/MODER SEVERITY [facility] [address] [place] [address] T OFFICE 59914 [place] [facility] 9 9 [facility] JR, T VISIT INTERNAL NATHAN F 25 MED MINUTES CRITICAL JAMEL ACCESS 9 9 [facility] OFF[facility] 06355 [place], OUTPATIEN 9 9 TAL Villafana T VISIT INTERNAL 15 MED MINUTES OFFICE 89252 SYBIL DEVINE CONSULTAT 9 9 JIGNESH Olivia JIGNESH Baker ION NEW/ESTAB PATIENT 30 MIN [facility] - 9 9 [facility] T CRITICAL JAMEL ACCESS 9 9 [facility] OFFICE 79958 [place] MCKEM[facility] OUTPATIEN 9 9 Carlos Enrique PARADA JR VISIT INTERNAL NATHAN F 15 MED MINUTES OFFICE 24497 [place] [facility] OUTPATIEN 8 8 Carlos Enrique PARADA JR VISIT INTERNAL NATHAN F 15 MED MINUTES OFFICE 86930 [place], OUTPATIEN 8 8 TAL Villafana T VISIT INTERNAL 15 MED MINUTES OFFICE 54006 [place] [facility] OUTPATIEN 8 8 Carlos Enrique PARADA JR VISIT INTERNAL NATHAN F 15 MED MINUTES OFFICE 95211 JEET WYATT 8 8 RPASANTH Castillo ION [facility] NEW/ESTAB PSC PATIENT 40 MIN [facility] 8 [facility] - 8 8 [facility] - 8 8 [facility] T OFFICE 57055 [place] [facility] OUTPAT[facility] 8 8 Carlos Enrique PARADA JR VISIT INTERNAL NATHAN F 15 MED MINUTES OFFICE 81786 [place] [facility] OUTPATIEN 8 8 Carlos Enrique PARADA JR VISIT INTERNAL NATHAN F 15 MED MINUTES
--- OUTSIDE RECORDS SUMMARY | 2017-02-04 15:30 | External Medical Summary Rpt ---
Demographics Preferred Language Georgian Marital Status Unknown Moravian Affiliation Unknown Race Unknown Ethnic Group Unknown Author Author [facility] Address Unknown Phone Immunization No patient found.
--- OUTSIDE RECORDS SUMMARY | 2017-02-04 15:30 | External Medical Summary Rpt ---
Author Author [facility]LEY Wang, [employer] Organization [employer] Address Unknown Phone Unavailable
--- OUTSIDE RECORDS SUMMARY | 2017-02-04 15:30 | External Medical Summary Rpt ---
Demographics Preferred Language Sami Marital Status Unknown Sabianism Affiliation Unknown Race Unknown Ethnic Group Unknown Author Author [facility] Address Unknown Phone Immunization No patient found.
[2017-02-04 15:37] LABS: BUN 19 mg/dL (7-18)
[2017-02-04 15:38] LABS: GFR (ESTIMATED) 40 ML/MIN (59-)
[2017-02-04 18:42] VITALS: BP 150/74
== END 2017-02-04 18:42 | disposition home or self-care (01) ==
LOC: ER 14:50
PROVIDERS: Emergency Medicine
DX: R07.9 Chest pain, unspecified (principal); I25.10 Atherosclerotic heart disease of native coronary artery without angina pectoris; F41.9 Anxiety disorder, unspecified; R06.02 Shortness of breath